=== PATIENT | female | born 1945 | race Caucasian/White ===

== ENCOUNTER 2016-12-07 19:56 | Emergency (ER) | payer MEDICARE ==
--- NOTE | 2016-12-07 20:37 | ED ---
General Adult HPI - General Chief complaint: Chest Pain Stated complaint: back & chest pressure-poss med reaction Time Seen by Provider: 12/07/16 20:26 Source: patient, RN notes reviewed, old records reviewed Mode of arrival: wheelchair Limitations: no limitations - History of Present Illness Initial comments: This is a 71-year-old female here for evaluation. Patient's today for evaluation of chest pain. Patient resisted new medication any chest pain or stomach rating her back. Patient has no history of heart disease stent. Patient no nausea vomiting or diarrhea. Patient states chest pain is sharp stabbing and radiates to her back. No significant distress of breath and no diaphoresis associated. Not worse with activity. - Related Data Home Medications Medication Instructions Recorded Confirmed Atenolol [Atenolol] 25 mg PO DAILY 06/17/15 12/07/16 Ezetimibe [Zetia] 10 mg PO DAILY 06/17/15 12/07/16 Levothyroxine Sodium [Synthroid] 150 mcg PO DAILY 06/17/15 12/07/16 Lisinopril-Hctz 20-25 mg 1 tab PO DAILY 06/17/15 12/07/16 [Zestoretic 20-25] PARoxetine HCL [Paroxetine HCl] 10 mg PO QAM 06/17/15 12/07/16 Pantoprazole Sodium 40 mg PO DAILY 06/17/15 12/07/16 Rivaroxaban [Xarelto] 20 mg PO AC-SUPPER 06/17/15 12/07/16 metFORMIN HCL [Metformin HCl ER] 500 mg PO DAILY 06/17/15 12/07/16 Allergies Allergy/AdvReac Type Severity Reaction Status Date / Time codeine Allergy Unknown Verified 12/07/16 20:43 hydrocodone Allergy Itching Verified 12/07/16 20:43 hydroxyzine HCl Allergy Unknown Verified 12/07/16 20:43 [From Vistaril] hydroxyzine pamoate Allergy Unknown Verified 12/07/16 20:43 [From Vistaril] Iodinated Contrast Media - Allergy Anaphylaxis Verified 12/07/16 20:43 Oral and [Iodinated Contrast Media - IV Dye] metoclopramide HCl Allergy Unknown Verified 12/07/16 20:43 [From Reglan] Penicillins Allergy Rash/Hives Verified 12/07/16 20:43 sulfamethoxazole Allergy Unknown Verified 12/07/16 20:43 [From Bactrim] tree nut Allergy Anaphylaxis Verified 12/07/16 20:43 trimethoprim [From Bactrim] Allergy Unknown Verified 12/07/16 20:43 eluxadoline [From Viberzi] AdvReac Intermediate Chest Pain Verified 12/07/16 20: 43 hydralazine AdvReac Hallucinati Verified 12/07/16 20:43 ons Review of Systems ROS Statement: Those systems with pertinent positive or pertinent negative responses have been documented in the HPI. ROS Other: All systems not noted in ROS Statement are negative. Past Medical History Past Medical History: Atrial Fibrillation, Coronary Artery Disease (CAD), Cancer , Diabetes Mellitus, Fibromyalgia, GERD/Reflux, Hearing Disorder / Deafness, Hyperlipidemia, Hypertension, Osteoarthritis (OA), Sleep Apnea/CPAP/BIPAP, Thyroid Disorder Additional Past Medical History / Comment(s): HAS CLL CANCER. ANEMIA History of Any Multi-Drug Resistant Organisms: None Reported Past Surgical History: Cholecystectomy, Heart Catheterization With Stent, Hysterectomy, Joint Replacement Additional Past Surgical History / Comment(s): JES HIP, JES KNEE REPLACEMENTS. CERVICAL FUSION. Past Anesthesia/Blood Transfusion Reactions: Motion Sickness Additional Past Anesthesia/Blood Transfusion Reaction / Comment(s): SISTER DEVELOPED A-FIB AFTER SURGERY. Date of Last Stent Placement:: 2012 Past Psychological History: No Psychological Hx Reported Smoking Status: Never smoker Past Alcohol Use History: None Reported Past Drug Use History: None Reported - Past Family History Mother Family Medical History: Cancer General Exam Limitations: no limitations General appearance: alert, in no apparent distress Head exam: Present: atraumatic, normocephalic, normal inspection Eye exam: Present: normal appearance, PERRL, EOMI. Absent: scleral icterus, conjunctival injection, periorbital swelling ENT exam: Present: normal exam, mucous membranes moist Neck exam: Present: normal inspection. Absent: tenderness, meningismus, lymphadenopathy Respiratory exam: Present: normal lung sounds bilaterally. Absent: respiratory distress, wheezes, rales, rhonchi, stridor Cardiovascular Exam: Present: regular rate, normal rhythm, normal heart sounds. Absent: systolic murmur, diastolic murmur, rubs, gallop, clicks GI/Abdominal exam: Present: soft, normal bowel sounds. Absent: distended, tenderness, guarding, rebound, rigid Extremities exam: Present: normal inspection, full ROM, normal capillary refill. Absent: tenderness, pedal edema, joint swelling, calf tenderness Back exam: Present: normal inspection Neurological exam: Present: alert, oriented X3, CN II-XII intact Psychiatric exam: Present: normal affect, normal mood Skin exam: Present: warm, dry, intact, normal color. Absent: rash Course Vital Signs 12/07/16 12/07/16 20:04 21:13 Temperature 98.4 F Pulse Rate 68 62 Respiratory 20 22 Rate Blood Pressure 169/73 144/58 O2 Sat by Pulse 95 97 Oximetry - Reevaluation(s) Reevaluation #1: 12/07/16 21:[address] or any further testing, states she is not willing to take a CAT scan EKG Findings - EKG Comments: EKG Findings:: EKG shows normal sinus rhythm of 60, LA 164, QRS 80, QTC 402 Medical Decision Making - Medical Decision Making 71 female here with chest pain rating to back, symptoms resolved upon arrival to ER, EKG lab work and x-ray normal, patient's symptoms occurred after taking new medication today, patient advised not to take medication and follow-up with Dr. Clark for further evaluation - Lab Data Result diagrams: 12/07/16 20:35 12/07/16 20:35 Lab Results 12/07/16 12/07/16 12/07/16 Range/Units 20:35 20:35 20:35 WBC 15.2 H (3.8-10.6) k/uL RBC 4.73 (3.80-5.40) m/uL Hgb 14.0 (11.4-16.0) gm/dL Hct 41.5 (34.0-46.0) % MCV 87.8 (80.0-100.0) fL MCH 29.7 (25.0-35.0) pg MCHC 33.8 (31.0-37.0) g/dL RDW 15.6 H (11.5-15.5) % Plt Count 304 (150-450) k/uL Neutrophils % (Manual) 53.0 % Band Neutrophils % 1.0 % Lymphocytes % (Manual) 34.0 % Monocytes % (Manual) 11.0 % Eosinophils % (Manual) 1.0 % Neutrophils # (Manual) 8.2 H (1.3-7.7) k/uL Lymphocytes # (Manual) 5.2 H (1.0-4.8) k/uL Monocytes # (Manual) 1.7 H (0-1.0) k/uL Eosinophils # (Manual) 0.2 (0-0.7) k/uL Nucleated RBCs 0 (0-0) /100 WBC Manual Slide Review Performed RBC Morphology Normal Sodium 136 L (137-145) mmol/L Potassium 4.0 (3.5-5.1) mmol/L Chloride 101 (98-107) mmol/L Carbon Dioxide 25 (22-30) mmol/L Anion Gap 10 mmol/L BUN 14 (7-17) mg/dL Creatinine 0.93 (0.52-1.04) mg/dL Est GFR (MDRD) Af Amer >60 (>60 ml/min/1.73 sqM) Est GFR (MDRD) Non-Af 59 (>60 ml/min/1.73 sqM) Glucose 151 H (74-99) mg/dL Calcium 8.9 (8.4-10.2) mg/dL Magnesium 2.2 (1.6-2.3) mg/dL Total Bilirubin 0.7 (0.2-1.3) mg/dL AST 37 H (14-36) U/L ALT 32 (9-52) U/L Alkaline Phosphatase 68 (38-126) U/L Total Creatine Kinase 62 (30-135) U/L Total Protein 6.9 (6.3-8.2) g/dL Albumin 3.9 (3.5-5.0) g/dL Lipase 46 (23-300) U/L - Radiology Data Radiology results: report reviewed (Chest x-ray 2 view negative for acute disease), image reviewed Disposition Clinical Impression: Atypical chest pain, Medication reaction Disposition: HOME SELF-CARE Condition: Good Instructions: Chest Pain (ED) Referrals: Huma Jarquin DO [Primary Care Provider] - 1-2 days
[2016-12-07 20:54] LABS: CH 30.5; CHCM 34.8; HCT 41.5 % (34.0-46.0); HDW 3.03; MCH 29.7 pg (25.0-35.0); MCHC 33.8 g/dL (31.0-37.0); MCV 87.8 fL (80.0-100.0); Mean Platelet Volume 6.9; RBC 4.73 m/uL (3.80-5.40); RDW 15.6 % (11.5-15.5); WBC 15.2 k/uL (3.8-10.6)
[2016-12-07 21:00] LABS: ALT 32 U/L (9-52); AST 37 U/L (14-36); Alkaline Phosphatase 68 U/L (38-126); Anion Gap 10 mmol/L; Blood Urea Nitrogen 14 mg/dL (7-17); Calcium 8.9 mg/dL (8.4-10.2); Carbon Dioxide 25 mmol/L (22-30); Chloride 101 mmol/L (98-107); Glucose 151 mg/dL (74-99); Magnesium 2.2 mg/dL (1.6-2.3); Non-African American GFR(MDRD) 59 (>60 ml/min/1.73 sqM); Sodium 136 mmol/L (137-145); Total Bilirubin 0.7 mg/dL (0.2-1.3); Total Protein 6.9 g/dL (6.3-8.2)
[2016-12-07 21:03] LABS: Add Differential Manual Differential
[2016-12-07 21:10] LABS: Creatine Kinase 62 U/L (30-135)
[2016-12-07 21:11] LABS: Nucleated Red Blood Cells 0 /100 WBC (0-0); Total Cells Counted 100
[2016-12-07 21:12] LABS: Manual Review Performed; Prothrombin Time 10.3 sec (9.0-12.0); RBC Morphology Normal
[2016-12-07 21:15] VITALS: BP 144/58
--- NOTE | 2016-12-07 21:20 | XR ---
EXAMINATION TYPE: XR chest 2V DATE OF EXAM: 12/07/2016 9:06 PM COMPARISON: 09/25/2013 HISTORY: Chest pressure TECHNIQUE: Frontal and lateral views of the chest are obtained. FINDINGS: There is no heart failure nor confluent pneumonic infiltrate. Heart is top normal in size. There are no hilar masses. There are chest leads. Costophrenic angles are clear. IMPRESSION: No active cardiopulmonary disease. No change.
[2016-12-07 21:22] LABS: Creatine Kinase MB 0.7 ng/mL (0.0-2.4); Troponin I <0.012 ng/mL (0.000-0.034)
[2016-12-07 21:23] LABS: Partial Thromboplastin Time 18.3 sec (22.0-30.0)
[2016-12-07 21:46] VITALS: PULSE 63; RESP 20; TEMP 97.2
== END 2016-12-07 21:44 | disposition home or self-care (01) ==
LOC: EC 19:56
DX: R07.89 Other chest pain (principal); T50.905A Adverse effect of unspecified drugs, medicaments and biological substances, initial encounter; I48.91 Unspecified atrial fibrillation; I25.10 Atherosclerotic heart disease of native coronary artery without angina pectoris; E11.9 Type 2 diabetes mellitus without complications; K21.9 Gastro-esophageal reflux disease without esophagitis; H91.3 Deaf nonspeaking, not elsewhere classified; E78.5 Hyperlipidemia, unspecified; I10 Essential (primary) hypertension; E07.9 Disorder of thyroid, unspecified; G47.30 Sleep apnea, unspecified; Z85.6 Personal history of leukemia; Z79.84 Long term (current) use of oral hypoglycemic drugs; Z79.899 Other long term (current) drug therapy; Z88.5 Allergy status to narcotic agent; Z91.041 Radiographic dye allergy status; Z88.2 Allergy status to sulfonamides; Z88.0 Allergy status to penicillin; Z88.8 Allergy status to other drugs, medicaments and biological substances; Z91.018 Allergy to other foods
CPT/HCPCS: 36415; 71020; 80053; 82550; 82553; 83690; 83735; 83880; 84484; 85025; 85379; 85610; 85730; 93005; 99285

== ENCOUNTER 2017-06-17 11:28 | Day surgery (SDC) | payer MEDICARE ==
[2017-06-15 17:30] VITALS: BMI 30.4
[~2017-06-17 11:28] MED LIST: LACTATED RINGERS 1,000 ML IV SCH
[2017-06-17 11:43] VITALS: RESP 18; TEMP 98
[2017-06-17] MEDS ORDERED: LACTATED RINGERS 1,000 ML IV ONE (11:44)
[2017-06-17] MEDS ORDERED: LIDOCAINE 1% 20 ML VIAL (10MG/ML) FOR IV START INTRADERMA ONE (11:44)
[2017-06-17] MEDS ORDERED: PROPOFOL 10 MG/ML 20 ML VIAL IV ONE (12:52)
[2017-06-17] MEDS ORDERED: LIDOCAINE 1% INJ 10MG/ML (20 ML MDV) ONE (12:52)
--- NOTE | 2017-06-17 13:26 | P.PCN ---
Date of Procedure: 06/17/17 Preoperative Diagnosis: Postoperative Diagnosis: Procedure(s) Performed: Procedure: Esophagogastroduodenoscopy and biopsy. Preoperative diagnosis: Nausea and vomiting. Postoperative diagnosis: 1. Mild antral gastritis. 2. Multiple biopsies obtained from the duodenum, antrum and esophagus. Preparation and sedation: Was provided by anesthesia. Brief clinical history: The patient is a 71-year-old female who was evaluated in the office regarding nausea and vomiting that she has been experiencing since August of last year. There is also history of GI bleeding and anemia that could have been related to Xarelto which has been discontinued since. The patient has also history of CLL diagnosed in 2012. Procedure: With the patient on her left lateral decubitus position and after informed consent and adequate sedation, I passed the Olympus-GIF 160 video upper endoscope through the cricopharyngeus down the esophagus. GE junction was around 40 cm from the incisors and there was no obvious hiatal hernia. The esophagus did not show any obvious erosions, ulcers, strictures or Pearson's esophagus. The endoscope was then passed into the stomach which was insufflated with air and inspected in detail including the retroflex view in the cardia. There was some mottling and erythema in the antrum but no ulcers or erosions. Pyloric channel, duodenal bulb, post bulbar area and descending duodenum appeared within normal limits. No ulcers or gastric outlet obstruction. Because of her symptoms, I obtained biopsies from the duodenum, antrum and esophagus then the endoscope was withdrawn. The patient tolerated the procedure well. Plan: The patient was reassured. Will await biopsy results. Further plans will be made based on her course and biopsy results. Will keep you updated on her progress. Implants: Indications for Procedure: Operative Findings: Description of Procedure:
[2017-06-17 13:56] VITALS: BP 186/78; PULSE 80
== END 2017-06-17 14:07 | disposition home or self-care (01) ==
LOC: ORWHC2ENDO 11:28
DX: K29.50 Unspecified chronic gastritis without bleeding (principal); I25.10 Atherosclerotic heart disease of native coronary artery without angina pectoris; K58.9 Irritable bowel syndrome, unspecified; I10 Essential (primary) hypertension; E78.5 Hyperlipidemia, unspecified; C91.10 Chronic lymphocytic leukemia of B-cell type not having achieved remission; E07.9 Disorder of thyroid, unspecified; M79.7 Fibromyalgia; M19.90 Unspecified osteoarthritis, unspecified site; I48.91 Unspecified atrial fibrillation; Z79.82 Long term (current) use of aspirin; Z79.899 Other long term (current) drug therapy; Z88.5 Allergy status to narcotic agent; Z88.0 Allergy status to penicillin; Z88.2 Allergy status to sulfonamides; Z88.8 Allergy status to other drugs, medicaments and biological substances
CPT/HCPCS: 88305; 88342; 43239; J2001; J2704

== ENCOUNTER → 2017-06-22 | Outpatient (CLI) | payer MEDICARE ==
--- NOTE | 2017-06-23 13:16 | PN ---
Date of service: 06/22/2017 This is a very pleasant 71 -year-old female patient who does have a history of obstructive sleep apnea. She had recently had her CPAP setting changed from 5 cm of water to 10 cm of water for her previous machine settings. She is now on a [employer] Dream Station with a dream nasal prong set up. She had been doing well with the previous setting which was 5 cm water. She comes today with complaints of bilateral ear pain since wearing the 10 cm water setting. This was just adjusted three days ago per [facility] remotely. The first two nights, she redeveloped the ear pain that she had experienced previously at 10 cm water. Technical findings of the CPAP machine revealed a RAMP of 4.0 over 30 minutes. CFLEX Of 3. She is utilizing 7.7 hours with 9.3 P90 and an AHI of 4.2. This was at 100% without any leaks. On physical exam, she is 5 feet 2 inches, weight is 169 pounds. BMI 30.9. Blood pressure 145/62. Heart rate 54. Respirations 16. Temperature 98.5. She is 96% O2 saturation on room air. Her head is normocephalic. Sclerae anicteric. There is crowding of the posterior pharynx. Her neck is short, supple. Trachea is midline. Her lungs are clear anteriorly and posteriorly. Her heart is regular, S1, and S2. No murmurs. Her abdomen is soft, nontender. Bowel sounds are present. There is no peripheral edema. No clubbing, no cyanosis. Peripheral pulses are intact. IMPRESSION: 1. Symptomatic obstructive sleep apnea utilizing CPAP with a previous pressure of 5 cm water recently increased to 10 cm water causing the patient significant bilateral ear discomfort. 2. Hypothyroidism. 3. Hypertension. 4. Fibromyalgia. 5. Coronary artery disease. 6. Diabetes. 7. Paroxysmal atrial fibrillation. PLAN: The patient was seen and evaluated by Dr. Ulloa. Her CPAP numbers were reviewed. He did go ahead and readjust the auto pressure settings to a minimum of 4 and a maximum of 8 cm water. He did remove the ramp as well. We will see her back in one weeks time to determine if these settings are more comfortable for her. She is however encouraged to call sooner with any further concerns. GRACE
== END ==
LOC: SLEEP 15:40
PROVIDERS: ATTEND Internal Medicine Critical Care Medicine
DX: G47.33 Obstructive sleep apnea (adult) (pediatric) (principal); E03.9 Hypothyroidism, unspecified; I10 Essential (primary) hypertension; M79.7 Fibromyalgia; I25.10 Atherosclerotic heart disease of native coronary artery without angina pectoris; E11.9 Type 2 diabetes mellitus without complications; I48.0 Paroxysmal atrial fibrillation

== ENCOUNTER → 2017-09-14 | Outpatient (CLI) | payer MEDICARE ==
--- NOTE | 2017-09-14 16:29 | PN ---
PROGRESS NOTE Shannan is a pleasant 72-year-old female patient coming in for a CPAP compliancy check. The patient was diagnosed having moderate to severe disease with an AHI of 17 and the patient is currently on CPAP with a minimum pressure of 4 maximum pressure of 8 and the patient's CPAP has been said to an automatic mode. She is using a dream wear nose mask. She also is utilizing a TopLog RespirSynovex auto CPAP station. Her treatment has been successful. Her sleep quality is improved and the patient is very much benefit from CPAP therapy. She is waking up alert and refreshed during the day. She seems to be averaging more than 7 hours of sleep every night. Based on the compliance data over the past 30 days. The patient has never averaging around 8.4 hours of CPAP use per night. Her mask fit is very good and the patient is not having any significant leaks. AHI while on treatment down to 3.9. Her CPAP use for more than 4 hours is 100%. The patient's P 90 pressure is at 7.5. As such, treatment has been successful, the patient is compliant and her [place] score is down to 4 and the patient has no specific complaints. She has lost around 2 pounds since her last evaluation. PHYSICAL EXAMINATION: BP is 150/80, pulse 52, respirations 16, temperature 97.7, saturation 97% on room air. Weight is 167. GENERAL APPEARANCE: Calm, comfortable. HEENT: Head is atraumatic, normocephalic. Neck is supple. No goiter or neck masses. LUNGS: Clear to auscultation. HEART: Sounds regular rhythm. Normal S1, S2. No S3, S4. No murmurs. ABDOMEN: Soft, nontender. No organomegaly. EXTREMITIES: No edema. No cyanosis or clubbing at this point. NEUROLOGIC: The patient is alert and oriented x3. There is no focal neurological deficits. PSYCHIATRIC: No anxiety or depression. IMPRESSION: 1. Symptomatic obstructive sleep apnea, improved with CPAP therapy. Baseline AHI 17. Currently on auto CPAP therapy with excellent clinical response and compliance. 2. Hypersomnia, improved. [place] score is down to 4. 3. Hypothyroidism. 4. Hypertension. 5. Fibromyalgia. 6. CAD. 7. Diabetes. 8. Paroxysmal atrial fibrillation. PLAN: 1. Continue CPAP. Automatic mode minimum pressure of 4, maximum pressure of 8. 2. Continue Dreamwear nose mask. 3. Encourage weight loss. 4. Treatment has been successful. No need for any adjustment. The patient was encouraged to continue using her CPAP. See me back in a year's time or earlier if needed. MMODL / IJN: [id number] /
== END ==
LOC: SLEEP 13:03
PROVIDERS: ATTEND Internal Medicine Critical Care Medicine
DX: G47.33 Obstructive sleep apnea (adult) (pediatric) (principal); E03.9 Hypothyroidism, unspecified; I10 Essential (primary) hypertension; M79.7 Fibromyalgia; I25.10 Atherosclerotic heart disease of native coronary artery without angina pectoris; I48.0 Paroxysmal atrial fibrillation; E11.9 Type 2 diabetes mellitus without complications
CPT/HCPCS: 99211

== ENCOUNTER → 2017-12-06 | Outpatient (CLI) | payer MEDICARE ==
--- NOTE | 2017-12-08 07:55 | MM ---
Reason for exam: screening (asymptomatic). Last mammogram was performed 1 year and 2 months ago. History: Patient is postmenopausal and has history of other cancer at age 67. Family history of breast cancer at age 42. Took estrogen for 30 years beginning at age 29. Physical Findings: A clinical breast exam by your physician is recommended on an annual basis and results should be correlated with mammographic findings. MG 3D Screening Mammo W/Cad Bilateral CC and MLO view(s) were taken. Prior study comparison: October 02, 2016, bilateral MG 3d screening mammo w/cad. August 22, 2015, bilateral MG screening mammo w CAD. The breast tissue is heterogeneously dense. This may lower the sensitivity of mammography. No suspicious abnormality. No significant changes when compared with prior studies. ASSESSMENT: Negative, BI-RAD 1 RECOMMENDATION: Routine screening mammogram of both breasts in 1 year.
== END | disposition home or self-care (01) ==
LOC: RADMAMWWP 14:37
PROVIDERS: ATTEND Family Medicine
DX: Z12.31 Encounter for screening mammogram for malignant neoplasm of breast (principal)
CPT/HCPCS: 77063; 77067

== ENCOUNTER → 2017-12-07 | Outpatient (CLI) | payer MEDICARE ==
--- NOTE | 2017-12-07 16:42 | PN ---
PROGRESS NOTE REASON FOR EVALUATION: Sleep apnea. HISTORY OF PRESENT ILLNESS: This is a 72-year-old female patient diagnosed having obstructive sleep apnea with an AHI of 17 and the patient is currently on an auto CPAP unit with a minimum pressure of 4 and a maximum pressure of 8 and today she is coming in for a compliancy check and a routine annual followup. The patient has been trying to lose weight and she has lost around 4 pounds since her last visitation. She is very compliant with her CPAP unit and she is still benefitting from the treatment. She is wearing the CPAP every night and she is requesting her CPAP supplies to be renewed. The patient has no specific complaints. She has undergone a bowel surgery for complicated diverticular disease and she has a colectomy and her surgery went fine without any major difficulties. She did not have any respiratory difficulties at the time of surgery. Her compliancy data on today's evaluation showed that the patient has been utilizing the CPAP for more than 4 hours more than 90% of the time with her average CPAP use around 9 hours per night and her AHI while on treatment is less than 5. Her P90 pressure is at 7.3. The patient is doing well and she has no specific complaints otherwise for now. REVIEW OF SYSTEMS: CONSTITUTIONAL: Negative for fever, chills or night sweats. She is losing weight. HEENT: Negative for any headaches or sinus disease or nasal congestion or rhinitis. CARDIOVASCULAR: Negative for angina or palpitations. PULMONARY: Negative for cough or sputum production. She denies wheezing. GI: Negative for nausea, vomiting, abdominal pain or GI bleed. : Negative for dysuria, urgency or frequency. MUSCULOSKELETAL: Negative for any acute arthritis, falls or injuries. SKIN: Negative for wounds, ulcerations or cellulitis. PSYCHIATRIC: Negative for anxiety or depression. BP is 134/64, pulse 68, respirations 16, temperature 97.4, saturation 98% on room air. Weight is 162. Height is 5 feet 2 inches. [place] Score is 2 and BMI is 29.6. GENERAL APPEARANCE: Calm, comfortable. HEAD: Atraumatic, normocephalic. Neck is Mallampati Class IV. There is no goiter or neck mass. LUNGS: Clear to auscultation. HEART: Sounds regular rate and rhythm. Normal S1, S2. No S3, S4. No murmurs. ABDOMEN: Soft, nontender. No organomegaly. EXTREMITIES: No edema. No cyanosis or clubbing. SKIN: Negative for any wounds or ulcerations. IMPRESSION: 1. Symptomatic obstructive sleep apnea with an apnea-hypopnea index of 17. The patient continues to receive successful CPAP therapy and her treatment is successful. 2. Hypersomnia, recovered. 3. Hypothyroidism. 4. Hypertension. 5. Fibromyalgia. 6. Coronary artery disease. 7. Paroxysmal atrial fibrillation. 8. Diabetes mellitus. PLAN: 1. Continue CPAP therapy at the same settings, automatic mode with a maximum pressure of 8, minimum pressure of 4. 2. Renew the mask and provide the patient heated tubing. 3. Encourage further weight loss. Treatment is successful. The patient will see me back in a year's time, earlier if needed. MMJAREDL / SHIVAN: [id number] /
== END | disposition home or self-care (01) ==
LOC: SLEEP 14:08
PROVIDERS: ATTEND Internal Medicine Critical Care Medicine
DX: G47.33 Obstructive sleep apnea (adult) (pediatric) (principal); E03.9 Hypothyroidism, unspecified; I10 Essential (primary) hypertension; I25.10 Atherosclerotic heart disease of native coronary artery without angina pectoris; E11.9 Type 2 diabetes mellitus without complications; M79.7 Fibromyalgia; I48.0 Paroxysmal atrial fibrillation; Z99.89 Dependence on other enabling machines and devices

== ENCOUNTER → 2018-02-24 | Outpatient (CLI) | payer MEDICARE ==
--- NOTE | 2018-02-24 14:36 | BD ---
EXAMINATION TYPE: MG DEXA axial skeleton. DATE OF EXAM: 02/24/2018 COMPARISON: NONE CLINICAL HISTORY: Postmenopausal female. Osteoporosis screening. Height: 5 FT 1 1/2 IN Weight: 165 FRAX RISK QUESTIONS: Alcohol (3 or more units per day): NO Family History (Parent hip fracture): NO Glucocorticoids (More than 3mos): NO (Ex: prednisone, prednisolone, methylprednisolone, dexamethasone, and hydrocortisone). History of Fracture in Adulthood: NO Secondary Osteoporosis: 1. Type 1 Diabetes: NO 2. Hyperthyroidism: NO 3. Menopause before 45: YES 4. Malnutrition: NO 5. Chronic liver disease: NO Rheumatoid Arthritis: NO Current Tobacco Use: NO RISK FACTORS HISTORY OF: Surgery to Spine/Hip(right/left)/Wrist (right/left): CERV,BILATERAL HIPS When: 2002,2008 Active: YES Postmenopausal woman: PART HYST AGE 28 How long: TOOK PREMARIN FOR 20 YEARS MEDICATIONS: Thyroid Medications: YES Which medication: L-THYROXINE How Lon YEARS Additional Medications: L-THYROXINE, PAXIL,TENORMIN, NORVASC, BABY ASPIRIN, PROTONIX, Additional History: EXAM MEASUREMENTS: Bone mineral densitometry was performed using the NeuroVigil System. Bone mineral density as measured about the Lumbar spine is: ----- L1-L4(G/cm2): 1.502 T Score Values are as follows: ----- L2: 2.1 ----- L3: 5.5 ----- L4: 1.4 ----- L1-L4: 2.7 BASELINE IMPRESSION: Normal (Values between +1 and -1 indicate normal bone mass). Consider repeating this study in 5 year s or sooner if there is some new clinical indication. NOTE: T-SCORE=SD OF THE YOUNG ADULT MEAN.
== END | disposition home or self-care (01) ==
LOC: RADBDWWP 12:28
PROVIDERS: ATTEND Family Medicine
DX: Z78.0 Asymptomatic menopausal state (principal)
CPT/HCPCS: 77080

== ENCOUNTER → 2018-04-26 | Outpatient (CLI) | payer MEDICARE ==
--- NOTE | 2018-04-26 19:40 | PN ---
PROGRESS NOTE This is a 72-year-old female patient with moderately severe obstructive sleep apnea with an AHI of 17. She also has issues with chronic atrial fibrillation, hypertension, hypothyroidism, fibromyalgia, coronary artery disease and diabetes mellitus. The patient recently is having again atrial fibrillation. The patient is being scheduled for a cardioversion to be done tomorrow at [facility] under the supervision of Dr. Naik. The patient is currently using an APAP unit with a minimum pressure of 5, maximum pressure of 10. CPAP use for more than 4 hours is 90% of the time and the patient is averaging around 8.5 hours of CPAP use per night. Her AHI is down to 5.1. The patient is having some periodic breathing, on the order of 14%, and her P90 pressure is at 9 cm of water. She may have some underlying periodic breathing and this is probably related to her underlying chronic atrial fibrillation. Underlying CHF cannot be completely excluded. At any rate, the patient is compliant and she is benefitting from the treatment. Clinically she is more refreshed and she reports improvement in her sleep quality while on the treatment. She wants to continue with the treatment for now. She has no other specific complaints for now. REVIEW OF SYSTEMS: Twelve-point review of systems was done. Occasional palpitations related to atrial fibrillation with rapid ventricular response. No focal neurological deficits. No symptoms of TIA. No grinding of the teeth. No gasping for air at nighttime. No sleepwalking. No anxiety or panic attacks. No palpitation. No depression. No heartburn. No sweating. No sleeptalking or sleepwalking. No nocturia. PHYSICAL EXAMINATION: Her current vital signs are as follows: Her blood pressure is , pulse is 88, irregular, respirations 16, temperature 97.1. GENERAL APPEARANCE: Calm, comfortable. No acute distress. Head is atraumatic, normocephalic. NECK: Supple. There is no JVD. No goiter or neck masses. LUNGS: Clear to auscultation bilaterally. HEART: Heart sounds are irregular. Positive S1, S2. No S3, S4. No murmurs. ABDOMEN: Soft, nontender. No organomegaly. EXTREMITIES: No edema. No cyanosis or clubbing. NEUROLOGIC: The patient is alert and oriented x3. There is no focal neurological deficit. Psychiatrically no anxiety or depression. SKIN: Negative for any wounds or ulceration. IMPRESSION: 1. Symptomatic obstructive sleep apnea with an AHI of 17. The patient is on APAP with a minimum pressure of 5, maximum pressure of 10. Compliant, yet has some residual periodic breathing on the order of 14%. 2. Hypersomnia, improved. 3. Hypothyroidism. 4. Hypertension. 5. Chronic atrial fibrillation. 6. Coronary artery disease. 7. Diabetes mellitus. PLAN: 1. Proceed with cardioversion. 2. The patient is on amiodarone for maintenance of sinus rhythm mechanism post cardioversion. 3. Continue APAP therapy. 4. Recheck compliance and periodic breathing in 6 months' time post cardioversion. Treatment is successful. AHI is still less than 5. Will not make any adjustments unless there is further increase in periodic breathing or increase in the value of AHI at a later stage. Will continue to follow. PAULAL / SHIVAN: [id number] /
== END | disposition home or self-care (01) ==
LOC: SLEEP 14:55
PROVIDERS: ATTEND Internal Medicine Critical Care Medicine
DX: G47.33 Obstructive sleep apnea (adult) (pediatric) (principal); E03.9 Hypothyroidism, unspecified; I10 Essential (primary) hypertension; I25.10 Atherosclerotic heart disease of native coronary artery without angina pectoris; E11.9 Type 2 diabetes mellitus without complications; I48.2 Chronic atrial fibrillation; Z99.89 Dependence on other enabling machines and devices

== ENCOUNTER → 2018-04-27 | Day surgery (SDC) | payer MEDICARE ==
[2018-04-21 11:53] VITALS: BMI 28.8
[~2018-04-27] MED LIST changes: +PROPOFOL 10 MG/ML 20 ML VIAL IV ONE; +SODIUM CHLORIDE 0.9% 1,000 ML IV SCH
--- NOTE | 2018-04-27 08:03 | CE ---
CARDIAC ELECTROPHYSIOLOGY REPORT CARDIOVERSION PROCEDURE NOTE: INDICATION: Atrial fibrillation. PROCEDURE: After explaining the procedure to the patient as well as after obtaining a transesophageal echocardiogram and obtaining sedated state per the Anesthesia Department, a synchronized biphasic cardioversion using 200 joules was performed with restorationism of normal sinus rhythm. There was no immediate complications. RENEE / LIZZETTE: [id number] /
--- NOTE | 2018-04-27 08:03 | ECHOT ---
TRANSESOPHAGEAL ECHOCARDIOGRAM INDICATION: Evaluation of left atrial appendage. PROCEDURE: After explaining the procedure to the patient, its risks and the complications, her blood pressure, heart rate, O2 saturation were monitored. The throat was sprayed with Cetacaine. After receiving sedated state by the anesthesia department, the probe was introduced into the esophagus without difficulty. Images were obtained. Following that, the probe was removed. There was no immediate complication. FINDINGS: Left atrial size is mildly dilated. Left atrial appendage is normal. Left ventricular size and systolic function normal. The aortic valve revealed mild fibrocalcific change with aortic cusp with preserved opening. Mild thickening of the mitral valve leaflets was noted. The tricuspid valve is normal. Pulmonic valve is normal. Descending thoracic aorta revealed mild atherosclerotic changes. No pericardial effusion was noted. Contrast bubble study revealed no evidence of shunting across the interatrial septum. Doppler pulse wave and color Doppler obtained revealed moderate mitral and tricuspid regurgitation. There was trace aortic regurgitation. There was no shunting by color Doppler study. CONCLUSION: 1. Dilated left atrium with normal appearance of the left atrial appendage. 2. Normal left ventricular size and systolic function. 3. Moderate mitral and tricuspid regurgitation with mild pulmonary hypertension and evidence of aortic sclerosis with no stenosis. 4. Trace aortic regurgitation. 5. No pericardial effusion. 6. No shunting across the interatrial septum. MMODL / IJN: [id number] /
[2018-04-27 13:14] LABS: Calcium 8.9 mg/dL (8.4-10.2)
[2018-04-27 13:15] LABS: Potassium 4.2 mmol/L (3.5-5.1)
== END ==
LOC: CATHCVL 05:50
PROVIDERS: ATTEND Internal Medicine Interventional Cardiology
DX: I48.1 Persistent atrial fibrillation (principal); I08.3 Combined rheumatic disorders of mitral, aortic and tricuspid valves; I25.10 Atherosclerotic heart disease of native coronary artery without angina pectoris; I10 Essential (primary) hypertension; E78.2 Mixed hyperlipidemia; E11.9 Type 2 diabetes mellitus without complications; Z82.49 Family history of ischemic heart disease and other diseases of the circulatory system; I34.0 Nonrheumatic mitral (valve) insufficiency; Z79.01 Long term (current) use of anticoagulants; Z79.82 Long term (current) use of aspirin; Z79.890 Hormone replacement therapy; Z79.899 Other long term (current) drug therapy; Z88.5 Allergy status to narcotic agent; Z88.0 Allergy status to penicillin; Z88.8 Allergy status to other drugs, medicaments and biological substances
CPT/HCPCS: 80048; 92960; 93312; 93320; 93325

== ENCOUNTER → 2018-05-05 | Outpatient (CLI) | payer MEDICARE ==
[2018-05-05 11:41] LABS: Albumin 4.4 g/dL (3.5-5.0); Calcium 9.4 mg/dL (8.4-10.2); Total Bilirubin 0.3 mg/dL (0.2-1.3)
== END | disposition home or self-care (01) ==
LOC: LABWHC1 10:35
PROVIDERS: ATTEND Internal Medicine Interventional Cardiology
DX: I48.1 Persistent atrial fibrillation (principal)
CPT/HCPCS: 36415; 80053; 84443

== ENCOUNTER 2018-12-13 12:10 | Day surgery (SDC) | payer MEDICARE ==
[~2018-12-13 12:10] MED LIST changes: -LACTATED RINGERS 1,000 ML IV SCH; -PROPOFOL 10 MG/ML 20 ML VIAL IV ONE
[2018-12-13 13:41] LABS: Basophils % (A) 0 %; Eosinophils # (A) 0.2 k/uL (0-0.7); Eosinophils % (A) 1 %; HCT 44.9 % (34.0-46.0); HGB 15.2 gm/dL (11.4-16.0); Lymphocytes # (A) 3.1 k/uL (1.0-4.8); Lymphocytes % (A) 21 %; MCH 30.3 pg (25.0-35.0); MCHC 33.9 g/dL (31.0-37.0); MCV 89.5 fL (80.0-100.0); Monocytes # (A) 0.3 k/uL (0-1.0); Monocytes % (A) 2 %; Neutrophils # (A) 10.9 k/uL (1.3-7.7); Neutrophils % (A) 74 %; Platelet Count 299 k/uL (150-450); RBC 5.02 m/uL (3.80-5.40); WBC 14.7 k/uL (3.8-10.6)
[2018-12-13 13:43] LABS: Calcium 9.9 mg/dL (8.4-10.2); Potassium 4.6 mmol/L (3.5-5.1)
[2018-12-13] MEDS ORDERED: SODIUM CHLORIDE 0.9% 1,000 ML IV ONE (16:06)
[2018-12-13] MEDS ORDERED: SUCCINYLCHOLINE CHLORIDE 100 MG/5 ML SYR IV ONE (16:06)
[2018-12-13] MEDS ORDERED: PROTAMINE SULFATE 10 MG/ML 5 ML VIAL IV ONE (16:06)
[2018-12-13] MEDS ORDERED: ONDANSETRON 4 MG/2 ML VIAL ONE (16:06)
[2018-12-13] MEDS ORDERED: HEPARIN SODIUM,PORCINE 10,000 UNIT/ML 1 ML VIAL ONE (16:06)
[2018-12-13] MEDS ORDERED: PROPOFOL 10 MG/ML 20 ML VIAL IV ONE (16:06)
[2018-12-13] MEDS ORDERED: fentaNYL (PF) 50 MCG/ML 2 ML AMP ONE (16:06)
[2018-12-13] MEDS ORDERED: MIDAZOLAM 2 MG/2 ML VIAL ONE (16:06)
[2018-12-13] MEDS ORDERED: ISOPROTERENOL 250 MCG/1.25 ML SYR IV ONE (16:06)
[2018-12-13] MEDS ORDERED: LIDOCAINE 1% INJ 10MG/ML (20 ML MDV) ONE (16:35)
[2018-12-13] MEDS ORDERED: LIDOCAINE 1% INJ 10MG/ML (20 ML MDV) SQ ONE (17:02)
[2018-12-13] MEDS ORDERED: HEPARIN SOD,PORK IN 0.45% NACL 25,000 UNIT in 0.45% NACL 1 250ML.BAG IV ONE (18:00)
[2018-12-13] MEDS ORDERED: IOPAMIDOL-250 100ML BTL IV ONE (18:45)
--- NOTE | 2018-12-13 19:19 | P.PCN ---
Preoperative Diagnosis: Diagnosis Atrial fibrillation, symptomatic, refractory to therapy Result Successful pulmonary vein isolation of all veins using cryo-ablation Complete entrance block in all 4 veins confirmed No evidence for phrenic nerve injury Left atrial roof line, linear ablation Esophageal deflection YES Electrical cardioversion with a synchronized shock across the chest YES Procedure details Patient was brought to the EP lab in a fasting state. Written informed consent was obtained prior to the procedure. Procedure performed under general anesthesia After initial muscle relaxant use, muscle relaxants were not given thereafter in order to assess phrenic nerve during procedure. Patient prepped and draped as per protocol Full cryo-set up with standard preparation of the cryoablation tools done. Femoral Venous access obtained on the right and left groins Venous and arterial Sheaths placed. Diagnostic catheters for the high right atrium, phrenic nerve stimulation and pacing, His bundle, RV and coronary sinus placed Intracardiac echo catheter placed. Long sheath placed in the right atrium Left and right transseptal catheterization performed under intracardiac echo guidance. Intravenous heparin with aCT above 300 Later, catheter positioning and balloon positioning in the left atrium, under intracardiac echo guidance Comprehensive diagnostic EP study with Drug infusion Coronary sinus pacing and recording Baseline measurements Atrial pacing performed from the high right atrium and the coronary sinus RV pacing Burst stimulation the right ventricle from 400 ms down to 2:30 milliseconds. One brief nonsustained VT no sustained VT Ventricular extra stimulation with single extrastimuli , no VT Transseptal catheterization performed RA pressure 20/9/15 LA pressure 30/11/21 Transseptal catheterization performed with standard sheath. The cryoablation sheath was then placed with an over the wire exchange without any acute complications. All 4 pulmonary veins were isolated in the following sequence: Left superior followed by left inferior followed by right superior followed by right inferior The cryo-ablation balloon was placed at the os of each vein 1.5 mL of IV dye was injected to confirm an occluded vein Goal during cryoablation was to achieve complete occlusion of the pulmonary vein , achieve -30C at 30 seconds and achieve -40C at 60 seconds and a time to affect of less than 60-90 seconds, . If not the balloon was repositioned to obtain this result After completion of Cryoblation with durations from 180-240 seconds, entrance block was confirmed with the Attain circular catheter in a roving fashion around the antrum of the pulmonary veins Phrenic nerve pacing was performed from the SVC, right innominate vein area and diaphragm voltage was monitored. Diaphragmatic contractions were also monitored manually for strength of contraction. Parameter goals for each cryo freeze -30 C by 30 seconds -40 degrees C by 60 seconds Minimum between minus 40-55C Thaw time greater than 10 seconds Balloon visualized by intracardiac echo The esophagus was intubated. Esophageal Temperature monitoring with a CIRCA catheter formed. Esophageal deflection for hypothermia of the esophagus below 32C Left superior pulmonary vein 4 minute Cryoblation complete isolation within 30 seconds Left inferior pulmonary vein 4 minute Cryoblation him a complete isolation Right superior pulmonary vein, during phrenic nerve pacing 4 minute Cryoblation, complete isolation Right inferior pulmonary vein, during phrenic nerve pacing 62nd Cryoblation, premature termination because of esophageal cooling Esophagus was deflected and a 4 minute Cryoblation, please isolation At the end of the procedure the Achieve catheter was once again used to check for entrance block Phrenic nerve stimulation was performed to confirm diaphragmatic stimulation the end of the procedure Cine fluoroscopy was performed at the very end of the procedure to confirm movement of both diaphragms with inspiration and expiration At the end of the procedure the patient was extubated Heparin was reversed Venous sheaths were removed and hemostasis assured Procedures performed (PVI - CRYO Ablation) Comprehensive diagnostic EP study CS pacing and recording Left and right transseptal catheterization Catheter the mapping of the tachycardia (NOT 3D mapping) Left atrial roof line, additional linear ablation, +[id number] Intracardiac echocardiography Pulmonary vein isolation with transseptal and comprehensive EPS, [id number] Electrical cardioversion with a synchronized shock across the chest 48151 Drug Infusion +[id number]
--- NOTE | 2018-12-13 19:20 | P.PRLE ---
RE: Shannan Ruiz Dear Giu Shannangus Ruiz underwent successful only vein isolation and linear ablation in the left atrial roof for management of atrial fibrillation. She is now on flecainide 100 mg twice daily and hopefully she can maintain sinus rhythm However she has a very dilated left atrium LV function is normal She will continue Xarelto lifelong Thank you for entrusting me with the care of the patient Warm regards Sincerely Antonio Nolen
[2018-12-13] MEDS ORDERED: ASPIRIN 81 MG PO SCH (21:00)
[2018-12-13 21:28] VITALS: BMI 30.1
[2018-12-13] MEDS ORDERED: ACETAMINOPHEN IV (For NPO) 1,000 MG in EMPTY BAG 1 BAG IVPB ONE (22:00)
[2018-12-13] MEDS: FLECAINIDE 50 MG TAB PO SCH (22:08)
[2018-12-13] MEDS: ACETAMINOPHEN TAB 325 MG TAB PO PRN (23:03)
[2018-12-14 05:57] LABS: T4, Free (Free Thyroxine) 1.96 ng/dL (0.78-2.19)
[2018-12-14] MEDS ORDERED: LEVOTHYROXINE 88 MCG TAB PO SCH (06:30)
[2018-12-14] MEDS ORDERED: PANTOPRAZOLE 40 MG TABLET PO SCH (07:30)
[2018-12-14] MEDS ORDERED: RIVAROXABAN 20 MG TAB PO SCH (07:30)
[2018-12-14 07:42] VITALS: RESP 18
--- NOTE | 2018-12-14 08:18 | P.DS ---
Providers Attending physician: Antonio Nolen Primary care physician: [facility] Course: Patient is doing very well. No chest discomfort dizziness lightheadedness. Mild sore throat. No dizziness no palpitations Telemetry shows sinus rhythm On examination temperature 99.2F, does not feel unwell or febrile pulse rate in the 70s and 80s normal respirations lying comfortably in bed no orthopnea Blood pressure 116/68 mmHg Normal breath sounds no rhonchi no crackles Normal heart sounds no rub or gallop soft systolic murmur Abdomen is soft nontender Groins of healed well sutures were removed no hematoma no bleeding White count 14.7 thousand but she looks very well hemoglobin is normal TSH is 0.047 and her levothyroxine dose may require adjustment Impression Persistent symptomatic atrial fibrillation. Refractory, appropriately anticoagulated for stroke prevention She underwent cryoablation of the pulmonary veins as well as left atrial roof line, linear ablation She has a very dilated left atrium and she underwent electrical cardioversion Plan Continue antiplatelet medication was xarelto Continue flecainide 100 mg twice daily Continue beta blockers Follow-up with Dr. Staples within 1-2 weeks for management of hypothyroidism and replacement therapy This may need a mild adjustment Follow-up with Dr. Naik for a groin check within a week Patient Condition at Discharge: Stable Plan - Discharge Summary Discharge Rx Participant: Yes New Discharge Prescriptions: Continue Pantoprazole Sodium 40 mg PO DAILY Atenolol 12.5 mg PO QAM PARoxetine HCL [Paroxetine HCl] 10 mg PO QAM amLODIPine [Norvasc] 5 mg PO DAILY Aspirin [Adult Low Dose Aspirin EC] 81 mg PO HS Potassium Chloride ER [K-Dur 20] 10 meq PO DAILY Cholecalciferol [Vitamin D3] 5,000 unit PO DAILY Rivaroxaban [Xarelto] 20 mg PO QAM Furosemide [Lasix] 20 mg PO QAM Levothyroxine Sodium [Synthroid] 175 mcg PO DAILY Flecainide Acetate [Tambocor] 100 mg PO Q12HR Ezetimibe [Zetia] 10 mg PO DAILY Discharge Medication List Atenolol 12.5 mg PO QAM 06/17/15 [History] PARoxetine HCL [Paroxetine HCl] 10 mg PO QAM 06/17/15 [History] Pantoprazole Sodium 40 mg PO DAILY 06/17/15 [History] Aspirin [Adult Low Dose Aspirin EC] 81 mg PO HS 08/15/17 [History] amLODIPine [Norvasc] 5 mg PO DAILY 06/15/17 [History] Cholecalciferol [Vitamin D3] 5,000 unit PO DAILY 04/21/18 [History] Furosemide [Lasix] 20 mg PO QAM 04/21/18 [History] Levothyroxine Sodium [Synthroid] 175 mcg PO DAILY 04/21/18 [History] Potassium Chloride ER [K-Dur 20] 10 meq PO DAILY 04/21/18 [History] Rivaroxaban [Xarelto] 20 mg PO QAM 04/21/18 [History] Ezetimibe [Zetia] 10 mg PO DAILY 12/09/18 [History] Flecainide Acetate [Tambocor] 100 mg PO Q12HR 12/09/18 [History] Follow up Appointment(s)/Referral(s): Florence Naik MD [STAFF PHYSICIAN] - 1 Week (Follow-up for a groin check) Activity/Diet/Wound Care/Special Instructions: Post EP study - Ablation instructions 1. Keep access sites dry for 2 days. 2. No heavy lifting or straining for 2 days. 3. Avoid bending the hips repeatedly for 2 days. 4. You may go up and down stairs slowly Call if the following is noted 1. Bleeding, increasing swelling or pain at the access sites. 2. Increasing chest discomfort, especially upon taking a deep breath. 3. Increasing shortness of breath, at rest or with exertion. 4. Undue cough / phlegm 5. Difficulty or pain while swallowing. 6. Pain or change in color in the extremities. 7. Fever, chills, rigors. 8. Increasing headache or neurologic symptoms. 9. Dizziness, fainting, palpitations Follow-up Dr. Heena fink within a week for a groin check Discharge Disposition: HOME SELF-CARE
[2018-12-14] MEDS: FLECAINIDE 50 MG TAB PO SCH (08:50)
[2018-12-14] MEDS ORDERED: POTASSIUM CHLORIDE ER 10 MEQ TAB.ER.PRT PO SCH (09:00)
[2018-12-14] MEDS ORDERED: ATENOLOL 12.5 MG TAB PO SCH (09:00)
[2018-12-14] MEDS ORDERED: EZETIMIBE 10 MG TAB PO SCH (09:00)
[2018-12-14] MEDS ORDERED: FUROSEMIDE 20 MG TAB PO SCH (09:00)
[2018-12-14] MEDS ORDERED: PARoxetine 10 MG TAB PO SCH (09:00)
[2018-12-14] MEDS ORDERED: amLODIPine 5 MG TAB PO SCH (09:00)
[2018-12-14] MEDS: ACETAMINOPHEN TAB 325 MG TAB PO PRN (11:10)
[2018-12-14 13:02] VITALS: BP 104/65; PULSE 63; TEMP 97.7
== END 2018-12-14 17:18 | disposition home or self-care (01) ==
LOC: CATHEP 12:10 → 1SOBS 19:00 → CATHEP 12-14 17:18
PROVIDERS: ATTEND Internal Medicine Clinical Cardiac Electrophysiology
DX: I48.1 Persistent atrial fibrillation (principal); I44.2 Atrioventricular block, complete; I45.81 Long QT syndrome; I47.2 Ventricular tachycardia; I49.3 Ventricular premature depolarization; I11.9 Hypertensive heart disease without heart failure; I25.10 Atherosclerotic heart disease of native coronary artery without angina pectoris; E11.9 Type 2 diabetes mellitus without complications; I34.0 Nonrheumatic mitral (valve) insufficiency; E78.2 Mixed hyperlipidemia; C95.10 Chronic leukemia of unspecified cell type not having achieved remission; G47.33 Obstructive sleep apnea (adult) (pediatric); F32.9 Major depressive disorder, single episode, unspecified; K21.9 Gastro-esophageal reflux disease without esophagitis; E03.9 Hypothyroidism, unspecified; Z99.89 Dependence on other enabling machines and devices; Z95.5 Presence of coronary angioplasty implant and graft; Z79.01 Long term (current) use of anticoagulants; Z79.82 Long term (current) use of aspirin; Z79.890 Hormone replacement therapy; Z79.899 Other long term (current) drug therapy; Z88.5 Allergy status to narcotic agent; Z88.0 Allergy status to penicillin; Z88.8 Allergy status to other drugs, medicaments and biological substances; Z91.041 Radiographic dye allergy status; Z88.2 Allergy status to sulfonamides; Z88.1 Allergy status to other antibiotic agents; Z91.018 Allergy to other foods; Z87.19 Personal history of other diseases of the digestive system; Z82.49 Family history of ischemic heart disease and other diseases of the circulatory system
CPT/HCPCS: 85347; 93623; 93662; 93609; 93656; 93657; 84439; 80048; 84443; 85025; C1769 ×4; C1894 ×3; C1730 ×2; C1759; C1893; C1733; C1766; J2250; J2720; J1644 ×2; J2405; J2001; J3010; J0330; J2704; Q9966; 92960

== ENCOUNTER → 2019-01-17 | Outpatient (CLI) | payer MEDICARE ==
--- NOTE | 2019-01-17 15:28 | PN ---
PROGRESS NOTE A 73-year-old female patient coming in for annual check regarding obstructive sleep apnea. The patient's has moderate severe JOSÉ ANTONIO with an AHI of 17 and the patient also suffers from chronic atrial fibrillation. She is also known to have hypertension, hypothyroidism, fibromyalgia, coronary artery disease and diabetes mellitus. Note that since the last dictation the patient was placed on amiodarone in regards to atrial fibrillation. She has experienced significant side effects. Mostly wounds affecting her thyroid function. Accordingly the patient was unable to tolerate the medication and the medication was discontinued. Subsequently the patient was referred to electrophysiology and the patient underwent an atrial fibrillation ablation and she was very successful. She is currently in a sinus rhythm, and she is on flecainide 100 mg twice a day. She is also on long-term anticoagulation with Xarelto and amiodarone has been discontinued completely. Meanwhile she continues to be very compliant for a Pap unit which is set at a minimum pressure of 6 admission maximum pressure of 12. She average around 8.8 hours of BiPAP use for not AHI while on treatment is down to 7.5. She is still having some occasional periodic breathing averaged a Pap 309.4 hours per night. He is very content and happy with the treatment she is waking up refreshed and alert during the day. No episodes of nocturnal palpitation no heartburn or chest pain. No episodes of any shortness of breath. No nighttime pain. She is using the AirFit small size nose pillows. REVIEW OF SYSTEMS: A 14-point review of system was done. Positive findings are mentioned in history of present illness. CONSTITUTIONAL: Negative for weight loss or weight gain. No fever, chills, or night sweats. HEAD: No trauma. NECK: Negative for any neck stiffness. Neck pain. No sore throat. No runny nose. No oral congenital nasal congestion. PULMONARY: Negative for cough, sputum production. GI: Negative for any nausea, vomiting abdominal pain, GI bleed. CARDIAC: Negative for angina or palpitations. The patient underwent ablation and she remains in sinus. NEURO: Negative for any TIA or symptoms of focal neurological or symptoms related to focal neurological deficits. Speech or confusion. No grinding of the teeth. SKIN: Negative for wounds or ulceration. CARDIAC: Negative for anxiety or depression. Sleep is negative for any sleepwalking or sleep talking. No major hypersomnia or sleepiness. [place] score is improved currently down to 5. SKIN: No wounds or ulcerations. MUSCULOSKELETAL: No falls, no excessive joint swelling. PHYSICAL EXAMINATION: BP is 91/40 7/82, pulse 68, respirations 16, temperature 16, temp 98 saturation 96% on room air. Height is 5 feet, weight is 172, and [place] score is 5 BMI 31.4. GENERAL APPEARANCE: Calm, comfortable. Head is atraumatic, normocephalic. NECK: Supple. No JVD. No goiter. No neck mass. LUNGS: Clear to auscultation. HEART: Sounds regular rate and rhythm. Normal S1, S2. No murmurs. ABDOMEN: Soft, nontender. No organomegaly. EXTREMITIES: No edema. No cyanosis or clubbing. NEUROLOGIC: Alert and oriented x3. No focal neurological deficits. PSYCHIATRIC: Negative for anxiety or depression. IMPRESSION: 1. While same other severe AHI of 17 currently on a BiPAP #5 minutes minimum of 6 maximum of 12 and the patient remained quite compliant. 2. Approximate chronic atrial fibrillation currently in sinus rhythm. Post cardiac ablation. 3. Hypersomnia, recovered [place] score is down to 5. 4. Hypothyroidism. 5. Hypertension. 6. Coronary artery disease. 7. History of diabetes mellitus. PLAN: 1. The patient will be offered abbreviated nose mask as an alternative. 2. Keep same pressure setting/. 3. Treatment successful. 4. The patient is an cardiac relative sinus and atrial fibrillation has been deflated. 5. Will see him back in a year's time, earlier if needed. MMODL / IJN: [id number] /
== END | disposition home or self-care (01) ==
LOC: SLEEP 13:22
PROVIDERS: ATTEND Internal Medicine Critical Care Medicine
DX: G47.33 Obstructive sleep apnea (adult) (pediatric) (principal); I48.2 Chronic atrial fibrillation; I10 Essential (primary) hypertension; E03.9 Hypothyroidism, unspecified; M79.7 Fibromyalgia; I25.10 Atherosclerotic heart disease of native coronary artery without angina pectoris; E11.9 Type 2 diabetes mellitus without complications; Z79.899 Other long term (current) drug therapy; Z79.01 Long term (current) use of anticoagulants; Z99.89 Dependence on other enabling machines and devices; Z98.890 Other specified postprocedural states

== ENCOUNTER 2019-05-03 09:24 | Inpatient (IN) | payer MEDICARE ==
[2019-05-08 13:49] VITALS: BMI 31.1
[2019-05-08] MEDS ORDERED: DOFETILIDE 250 MCG CAP PO ONE (18:00)
[2019-05-08 18:16] LABS: HGB 13.9 gm/dL (11.4-16.0); MCH 30.8 pg (25.0-35.0); MCHC 33.9 g/dL (31.0-37.0); MCV 90.9 fL (80.0-100.0); Mean Platelet Volume 7.1; Platelet Count 268 k/uL (150-450); RBC 4.51 m/uL (3.80-5.40); RDW 13.3 % (11.5-15.5)
[2019-05-08 18:30] LABS: Calcium 9.3 mg/dL (8.4-10.2); Magnesium 2.3 mg/dL (1.6-2.3); Potassium 3.9 mmol/L (3.5-5.1)
[2019-05-08] MEDS: ASPIRIN 81 MG PO SCH (20:36)
[2019-05-08] MEDS ORDERED: ATENOLOL 12.5 MG TAB PO SCH (21:00)
[2019-05-08] MEDS ORDERED: MAGNESIUM SULFATE-D5W PMX 1 GM in DEXTROSE/WATER 1 100ML.BAG IVPB PRN (21:32)
[2019-05-08] MEDS: ACETAMINOPHEN TAB 500 MG TAB PO SCH (21:50)
[2019-05-08 22:21] LABS: Appearance,Urine Clear (Clear); Bacteria,Urine Rare /hpf; Bilirubin,Urine Negative (Negative); Blood,Urine Trace (Negative); Color,Urine Light Yellow; Glucose,Urine (UA) Negative (Negative); Ketones,Urine Negative (Negative); Leukocyte Esterase,Urine Large (Negative); Nitrite,Urine Negative (Negative); Protein,Urine Negative (Negative); RBC,Urine 1 /hpf (0-5); Specific Gravity,Urine 1.009 (1.001-1.035); Squamous Epithelial Cell,Urine <1 /hpf (0-4); Urobilinogen,Urine <2.0 mg/dL (<2.0); WBC,Urine 8 /hpf (0-5)
[2019-05-09] MEDS ORDERED: DOFETILIDE 250 MCG CAP PO ONE ×2 (06:00→18:00)
[2019-05-09] MEDS: LEVOTHYROXINE 75 MCG TAB PO SCH (06:01)
[2019-05-09] MEDS: PANTOPRAZOLE 40 MG TABLET PO SCH (06:01)
[2019-05-09 06:41] LABS: African American GFR (CKD) >90 (>60 ml/min/1.73 sqM); Anion Gap 9 mmol/L; Blood Urea Nitrogen 21 mg/dL (7-17); Calcium 9.1 mg/dL (8.4-10.2); Carbon Dioxide 26 mmol/L (22-30); Chloride 106 mmol/L (98-107); Glucose 116 mg/dL (74-99); Magnesium 2.2 mg/dL (1.6-2.3); Potassium 3.9 mmol/L (3.5-5.1); Sodium 141 mmol/L (137-145)
[2019-05-09] MEDS: CHOLECALCIFEROL 1,000 UNIT TAB PO SCH (08:37)
[2019-05-09] MEDS: RIVAROXABAN 20 MG TAB PO SCH (08:38)
[2019-05-09] MEDS: ACETAMINOPHEN TAB 500 MG TAB PO SCH ×2 (08:39→20:19)
[2019-05-09] MEDS: FUROSEMIDE 20 MG TAB PO SCH (08:40)
[2019-05-09] MEDS: EZETIMIBE 10 MG TAB PO SCH (08:40)
[2019-05-09] MEDS: SPIRONOLACTONE 25 MG TAB PO SCH (08:40)
[2019-05-09] MEDS: amLODIPine 5 MG TAB PO SCH (08:40)
[2019-05-09] MEDS: MAGNESIUM OXIDE 400 MG TAB PO SCH (08:40)
[2019-05-09] MEDS: ATENOLOL 12.5 MG TAB PO SCH (08:40)
[2019-05-09] MEDS: PARoxetine 10 MG TAB PO SCH (08:41)
[2019-05-09] MEDS ORDERED: POTASSIUM CHLORIDE ER 20 MEQ TAB.ER PO SCH (09:00)
--- NOTE | 2019-05-09 09:42 | P.PN ---
Subjective Patient is sitting comfortably in a chair today. She has no dizziness lightheadedness palpitations or cardiac symptoms. However she has lower abdo lourdes discomfort. Yesterday a UA was sent and it shows large leukocyte esterase, WBCs and rare bacteria and trace blood Labs were reviewed this morning and include sodium 141 potassium 3.9 bicarb 26 BUN 21 creatinine 0.7 Her TSH is 4.5 On examination she is afebrile 98.1F pulse rate in the 70s afebrile blood pressure 142/71 mmHg 160/76. His mercury Breath sounds are clear no rhonchi no crackles Heart sounds are irregular Abdomen is soft there is minimal discomfort in the hypogastric area No lower extremity edema The 12-lead ECG shows colonization of atrial fibrillation on dofetilide 250 g twice daily This is after the second dose of dofetilide Her the absolute QT interval is less than 440 ms Suggest Continue amlodipine Continue Paxil 10 mg by mouth daily Continue Synthroid and low-dose Tenormin 12.5 g daily Xarelto 20 mg daily Zetia 10 mg daily Oral potassium is been stopped and spironolactone has been added Magnesium oxide has been added ID consult has been added for management of abnormal UA with elevated white count and some lower abdominal discomfort. Tikosyn interactions with be watched for Patient is okay to take penicillin and cephalosporins if needed but quinolones, Bactrim, macrolides should be avoided Objective - Vital Signs Vital signs: Vital Signs Temp 98.1 F 05/09/19 08:00 Pulse 78 05/09/19 08:00 Resp 16 05/09/19 08:00 BP 142/71 05/09/19 08:00 Pulse Ox 97 05/09/19 08:00 Intake & Output 05/08/19 05/09/19 05/09/19 18:59 06:59 18:59 Intake Total 240 Output Total 1000 Balance 240 -1000 Weight 79.8 kg 79.1 kg Intake: Oral 240 Output: Urine 1000 Other: Voiding Method Toilet # Voids 1 0 - Labs CBC & Chem 7: 05/08/19 18:04 05/09/19 05:48 Labs: Abnormal Lab Results - Last 24 Hours (Table) 05/08/19 05/08/19 05/08/19 Range/Units 18:04 18:04 22:00 WBC 13.0 H (3.8-10.6) k/uL Carbon Dioxide 31 H (22-30) mmol/L BUN 25 H (7-17) mg/dL Glucose 112 H (74-99) mg/dL Urine Blood Trace H (Negative) Ur Leukocyte Esterase Large H (Negative) Urine WBC 8 H (0-5) /hpf Urine Bacteria Rare H (None) /hpf 05/09/19 Range/Units 05:48 WBC (3.8-10.6) k/uL Carbon Dioxide (22-30) mmol/L BUN 21 H (7-17) mg/dL Glucose 116 H (74-99) mg/dL Urine Blood (Negative) Ur Leukocyte Esterase (Negative) Urine WBC (0-5) /hpf Urine Bacteria (None) /hpf
--- NOTE | 2019-05-09 11:02 | P.CONS ---
History of Present Illness - Reason for Consult Consult date: 05/09/19 Abnormal UA - History of Present Illness This is a 73-year-old female admitted under the care of Dr. Nolen for Tikosyn therapy for persistent symptomatic atrial fibrillation with previous electrocardioversions and ablation. Patient states her main complaints are shortness of breath and generalized fatigue fatigue. Yesterday, urinalysis was abnormal with trace blood, large leukoesterase, 8 of WBCs, rare bacteria along with leukocytosis and thus this consult was requested. The patient states that she did have increased frequency yesterday which she thought it was from drinking a lot of fluids. She denies any pain with urination, no abdominal pain, no flank pain. She denies having any fever or chills. No nausea, vomiting, diarrhea. Patient gives history of having CLL and her white count normally runs 10-14 and she follows with Dr. Paredes quarterly. Her white count is currently 13. Patient also has history of fibromyalgia and osteoarthritis generalized ankle feed and hands. Review of Systems All systems: negative Constitutional: Reports fatigue, Denies chills, Denies fever, Denies lethargy, Denies poor appetite, Denies sweats, Denies weakness Eyes: denies blurred vision, denies pain Ears, nose, mouth and throat: Denies dental pain, Denies dysphagia, Denies headache, Denies mouth pain, Denies nasal congestion, Denies nasal discharge, Denies sore throat, Denies vertigo Cardiovascular: Reports shortness of breath, Denies chest pain, Denies dyspnea on exertion, Denies leg edema, Denies lightheadedness Respiratory: Denies cough, Denies cough with sputum, Denies excessive sputum, Denies hemoptysis, Denies wheezing Gastrointestinal: Denies abdominal pain, Denies diarrhea, Denies loss of appetite, Denies nausea, Denies vomiting Genitourinary: Reports urinary frequency, Denies dysuria, Denies hematuria, Denies urgency Musculoskeletal: Denies frequent falls, Denies gait dysfunction, Denies muscle weakness, Denies myalgias Integumentary: Denies pruritus, Denies rash, Denies wounds Neurological: Denies aphasia, Denies change in mentation, Denies change in smell/taste, Denies change in speech, Denies numbness, Denies seizures, Denies weakness Psychiatric: Denies anxiety, Denies depression Endocrine: Denies fatigue, Denies weight change Past Medical History Past Medical History: Atrial Fibrillation, Coronary Artery Disease (CAD), Cancer, Fibromyalgia, GERD/Reflux, Hyperlipidemia, Hypertension, Osteoarthritis (OA), Sleep Apnea/CPAP/BIPAP, Thyroid Disorder Additional Past Medical History / Comment(s): Hx. chronic lymphocytic leukemia, ANEMIA, brucellosis, hiatal hernia, hx IBS, hx diverticulitis, uses CPAP, see Dr Nolen H & P History of Any Multi-Drug Resistant Organisms: None Reported Past Surgical History: Appendectomy, Back Surgery, Bowel Resection, Cholecystectomy, Heart Catheterization With Stent, Hysterectomy, Joint Replacement Additional Past Surgical History / Comment(s): JES HIP replacement, JES KNEE REPLACEMENTS. CERVICAL FUSION. hx of epidurals for back pain Past Anesthesia/Blood Transfusion Reactions: Motion Sickness Additional Past Anesthesia/Blood Transfusion Reaction / Comm: . Date of Last Stent Placement:: 2012 Past Psychological History: No Psychological Hx Reported Smoking Status: Never smoker Past Alcohol Use History: None Reported Additional Past Alcohol Use History / Comment(s): Patient is a lifelong nonsmoker. No illicit drug use, no alcohol abuse. Patient lives at home with her . There is a cat in the home. No recent travel. Past Drug Use History: None Reported - Past Family History Brother(s) Family Medical History: Cancer Mother Family Medical History: Cancer Medications and Allergies Home Medications Medication Instructions Recorded Confirmed Type Atenolol 12.5 mg PO BID 06/17/15 05/08/19 History PARoxetine HCL [Paroxetine HCl] 10 mg PO QAM 06/17/15 05/08/19 History Pantoprazole Sodium 40 mg PO DAILY 06/17/15 05/08/19 History Aspirin [Adult Low Dose Aspirin EC] 81 mg PO HS 06/15/17 05/08/19 History amLODIPine [Norvasc] 5 mg PO DAILY 06/15/17 05/08/19 History Cholecalciferol [Vitamin D3 (25 5,000 unit PO DAILY 04/21/18 05/08/19 History Mcg = 1000 Iu)] Furosemide [Lasix] 20 mg PO QAM 04/21/18 05/08/19 History Potassium Chloride ER [K-Dur 20] 20 meq PO DAILY 04/21/18 05/08/19 History Rivaroxaban [Xarelto] 20 mg PO QAM 04/21/18 05/08/19 History Ezetimibe [Zetia] 10 mg PO DAILY 12/09/18 05/08/19 History Levothyroxine Sodium [Synthroid] 150 mcg PO DAILY 05/08/19 05/08/19 History Allergies Allergy/AdvReac Type Severity Reaction Status Date / Time codeine Allergy "couldn't Verified 05/08/19 14:35 breathe" hydroxyzine HCl Allergy Unknown Verified 05/08/19 14:35 [From Vistaril] hydroxyzine pamoate Allergy Hallucinati Verified 05/08/19 14:35 [From Vistaril] ons Iodinated Contrast- Oral and Allergy Anaphylaxis Verified 05/08/19 14:35 IV Dye [Iodinated Contrast Media - IV Dye] metoclopramide HCl Allergy "couldn't Verified 05/08/19 14:35 [From Reglan] breathe" Penicillins Allergy Rash/Hives Verified 05/08/19 14:35 ranitidine [From Zantac] Allergy Rash/Hives Verified 05/08/19 14:35 sulfamethoxazole Allergy Rash/Hives Verified 05/08/19 14:35 [From Bactrim] tree nut Allergy Anaphylaxis Verified 05/08/19 14:35 trimethoprim [From Bactrim] Allergy Unknown Verified 05/08/19 14:35 eluxadoline [From Viberzi] AdvReac Intermediate Chest Pain Verified 05/08/19 14:35 hydralazine AdvReac Hallucinati Verified 05/08/19 14:35 ons Physical Exam Vitals: Vital Signs Temp Pulse Resp BP Pulse Ox 05/09/19 08:00 98.1 F 79 16 142/71 97 05/09/19 04:00 73 16 160/76 96 05/09/19 00:00 66 16 156/87 98 05/08/19 20:00 98.0 F 78 16 140/90 97 05/08/19 16:00 98.5 F 79 16 133/78 97 Intake and Output 05/08/19 05/09/19 05/09/19 22:59 06:59 14:59 Intake Total 240 240 Output Total 700 300 900 Balance -460 -300 -363 Intake: Oral 240 240 Output: Urine 700 300 900 Other: Voiding Method Toilet Toilet # Voids 0 Weight 79.1 kg Gen: This is a 73-year-old female. Patient is ambulating in her room and appears to be comfortable and in no acute distress. HEENT: Head is atraumatic, normocephalic. Pupils equal, round. Sclerae is anicteric. NECK: Supple. No JVD. No lymphadenopathy. No thyromegaly. LUNGS: Clear to auscultation. No wheezes or rhonchi. No intercostal retractions. HEART: Irregular rate and rhythm. No murmur. ABDOMEN: Soft. Bowel sounds are present. No masses. No tenderness. No CVA tenderness. EXTREMITIES: No pedal edema. No calf tenderness. Dorsalis pedis +2 bilaterally. NEUROLOGICAL: Patient is awake, alert and oriented x3. Cranial nerves 2 through 12 are grossly intact. Results Results: Laboratory Results WBC 13.0 k/uL (3.8-10.6) H 05/08/19 18:04 RBC 4.51 m/uL (3.80-5.40) 05/08/19 18:04 Hgb 13.9 gm/dL (11.4-16.0) 05/08/19 18:04 Hct 41.0 % (34.0-46.0) 05/08/19 18:04 MCV 90.9 fL (80.0-100.0) 05/08/19 18:04 MCH 30.8 pg (25.0-35.0) 05/08/19 18:04 MCHC 33.9 g/dL (31.0-37.0) 05/08/19 18:04 RDW 13.3 % (11.5-15.5) 05/08/19 18:04 Plt Count 268 k/uL (150-450) 05/08/19 18:04 Sodium 141 mmol/L (137-145) 05/09/19 05:48 Potassium 3.9 mmol/L (3.5-5.1) 05/09/19 05:48 Chloride 106 mmol/L (98-107) 05/09/19 05:48 Carbon Dioxide 26 mmol/L (22-30) 05/09/19 05:48 Anion Gap 9 mmol/L 05/09/19 05:48 BUN 21 mg/dL (7-17) H 05/09/19 05:48 Creatinine 0.70 mg/dL (0.52-1.04) 05/09/19 05:48 Est GFR (CKD-EPI)AfAm >90 (>60 ml/min/1.73 sqM) 05/09/19 05:48 Est GFR (CKD-EPI)NonAf 85 (>60 ml/min/1.73 sqM) 05/09/19 05:48 Glucose 116 mg/dL (74-99) H 05/09/19 05:48 Calcium 9.1 mg/dL (8.4-10.2) 05/09/19 05:48 Magnesium 2.2 mg/dL (1.6-2.3) 05/09/19 05:48 TSH 4.520 mIU/L (0.465-4.680) 05/08/19 18:04 Urine Color Light Yellow 05/08/19 22:00 Urine Appearance Clear (Clear) 05/08/19 22:00 Urine pH 6.0 (5.0-8.0) 05/08/19 22:00 Ur Specific [place] 1.009 (1.001-1.035) 05/08/19 22:00 Urine Protein Negative (Negative) 05/08/19 22:00 Urine Glucose (UA) Negative (Negative) 05/08/19 22:00 Urine Ketones Negative (Negative) 05/08/19 22:00 Urine Blood Trace (Negative) H 05/08/19 22:00 Urine Nitrite Negative (Negative) 05/08/19 22:00 Urine Bilirubin Negative (Negative) 05/08/19 22:00 Urine Urobilinogen <2.0 mg/dL (<2.0) 05/08/19 22:00 Ur Leukocyte Esterase Large (Negative) H 05/08/19 22:00 Urine RBC 1 /hpf (0-5) 05/08/19 22:00 Urine WBC 8 /hpf (0-5) H 05/08/19 22:00 Ur Squamous Epith Cells <1 /hpf (0-4) 05/08/19 22:00 Urine Bacteria Rare /hpf (None) H 05/08/19 22:00 CBC & Chem 7: 05/08/19 18:04 05/09/19 05:48 Labs: Abnormal Lab Results - Last 24 Hours (Table) 05/08/19 05/08/19 05/08/19 Range/Units 18:04 18:04 22:00 WBC 13.0 H (3.8-10.6) k/uL Carbon Dioxide 31 H (22-30) mmol/L BUN 25 H (7-17) mg/dL Glucose 112 H (74-99) mg/dL Urine Blood Trace H (Negative) Ur Leukocyte Esterase Large H (Negative) Urine WBC 8 H (0-5) /hpf Urine Bacteria Rare H (None) /hpf 05/09/19 Range/Units 05:48 WBC (3.8-10.6) k/uL Carbon Dioxide (22-30) mmol/L BUN 21 H (7-17) mg/dL Glucose 116 H (74-99) mg/dL Urine Blood (Negative) Ur Leukocyte Esterase (Negative) Urine WBC (0-5) /hpf Urine Bacteria (None) /hpf Assessment and Plan Plan: This is a 73-year-old female admitted to the hospital under the care of Dr. Nolen for Tikosyn dosing. There is concern for abnormal urinalysis completed yesterday. Patient has a slightly elevated white count most likely secondary to CLL. We will obtain renal ultrasound as there was abnormality found on a CAT scan done 2 years ago. No antibiotics at this time. Further recommendations as patient progresses. The above dictated assessment and findings were discussed with Dr. Rodgers. The impression and plan of care have been directed as dictated. Shannan Santiago nurse practitioner acting as scribe for Dr. Rodgers.
--- NOTE | 2019-05-09 15:07 | US ---
EXAMINATION TYPE: US kidneys/renal and bladder DATE OF EXAM: 05/09/2019 COMPARISON: CT 09/03/17, US 08/01/15 CLINICAL HISTORY: abnormal kidney. EXAM MEASUREMENTS: Right Kidney: 10.7 x 4.7 x 3.8 cm Left Kidney: 10.2 x 5.0 x 4.8 cm Post Void Residual Volume: Not calculated for this inpatient. mL Right Kidney: Hypoechoic area upper pole = 2.1 x 1.9 x 2.0 cm. This does not demonstrate clear assistive technology specialist ior acoustic enhancement. Left Kidney: No hydronephrosis or masses seen Bladder: wnl Bilateral Jets seen: Yes There is no evidence for hydronephrosis at this point in time. No nephrolithiasis is seen. The urin zainab bladder is anechoic. Bilateral ureteral jets are seen. IMPRESSION: New hypoechoic right renal mass in comparison to the prior exams of 2014 and 2016. This does not appe ar as a simple cyst and therefore three-phase CT abdomen is recommended to evaluate for solid renal m ass versus complex cyst
[2019-05-09] MEDS: ASPIRIN 81 MG PO SCH (20:19)
--- NOTE | 2019-05-09 23:44 | P.CON ---
Consult Note - . Consult date: 05/09/19 Assessment/Plan:: This is a 73-year-old female admitted under the care of Dr. Nolen for Tikosyn therapy for persistent symptomatic atrial fibrillation with previous electrocardioversions and ablation. Patient states her main complaints are s hortness of breath and generalized fatigue fatigue. Yesterday, urinalysis was abnormal with trace blood, large leukoesterase, 8 of WBCs, rare bacteria along with leukocytosis and thus this consult was requested. The patient states that she did have increased frequency yesterday which she thought it was from drinking a lot of fluids. She denies any pain with urination, no abdominal pain, no flank pain. She denies having any fever or chills. No nausea, vomiting, diarrhea. Patient gives history of having CLL and her white count normally runs 10-14 and she follows with Dr. Paredes quarterly. Her white count is currently 13. Patient also has history of fibromyalgia and osteoarthritis generalized ankle feed and hands.Please see the consult note as dictated by nurse practitioner Mrs. Shannan Santiago. This pleasant 73 year woman presents to Hospital for treatment of her refractory atrial fibrillation which is highly symptomatic with severe fatigue and malaise and progressive shortness of breath. She is being initiated Tikosyn therapy. She has some polyuria which she relates is not new but does not have dysuria, flank pain or fevers. She hasn't had chills or rigors. She does not feel like she usually does when she's had a urinary tract infection in the past. This time she is evidence of asymptomatic bacteriuria without significant pyuria and her leukocytosis appears recommended to her CLL. At this time she does not have underlying infection and does not require antibiotic therapy and can be monitored closely because of her risks. Thank you for the consult and I agree with the evaluation assessment and plan as dictated by nurse practitioner Mrs. Shannan Santiago.
[2019-05-10] MEDS: PANTOPRAZOLE 40 MG TABLET PO SCH (05:58)
[2019-05-10] MEDS: LEVOTHYROXINE 75 MCG TAB PO SCH (05:59)
[2019-05-10] MEDS ORDERED: DOFETILIDE 250 MCG CAP PO ONE ×2 (06:00→18:00)
[2019-05-10 06:55] LABS: Calcium 9.3 mg/dL (8.4-10.2); Magnesium 2.3 mg/dL (1.6-2.3); Potassium 3.9 mmol/L (3.5-5.1)
--- NOTE | 2019-05-10 07:43 | P.PN ---
Subjective This is Dr. Nolen dictating a progress note on this patient The patient was interviewed and examined by me IMPRESSION / ASSESSMENT: Symptomatic persistent atrial fibrillation with tiredness fatigue and lack of energy Dofetilide insulation in the hospital, Organization of atrial fibrillation followed by chemical conversion on dofetilide, 250 g PLAN: HPI ROS: No fever chills or rigors, no cough, phlegm or expectoration, no nausea, vomiting or diarrhea, no hematuria, dysuria, no musculoskeletal complaints, no strokes or seizures, no skin lesions. EXAMINATION: Afebrile 96.5F, blood pressure 137/66. His mercury and 146/60 mmHg Heart rate in the 60s and regular Normal respirations REVIEW OF LABS, ECG & MEDICAL DATA Sodium 140, potassium 3.9 BUN 24 creatinine 0.79 magnesium 2.3 Objective - Vital Signs Vital signs: Vital Signs Temp 96.5 F L 05/10/19 04:00 Pulse 68 05/10/19 04:00 Resp 18 05/10/19 04:00 BP 146/62 05/10/19 04:00 Pulse Ox 93 L 05/10/19 04:00 Intake & Output 05/09/19 05/10/19 05/10/19 18:59 06:59 18:59 Intake Total 1200 300 Output Total 900 Balance 300 300 Weight 79 kg Intake: Oral 1200 300 Output: Urine 900 Other: Voiding Method Toilet Toilet # Voids 0 2 1 - Labs CBC & Chem 7: 05/08/19 18:04 05/10/19 06:18 Labs: Abnormal Lab Results - Last 24 Hours (Table) 05/10/19 Range/Units 06:18 BUN 24 H (7-17) mg/dL Glucose 109 H (74-99) mg/dL
[2019-05-10] MEDS: ACETAMINOPHEN TAB 500 MG TAB PO SCH ×2 (08:28→20:46)
[2019-05-10] MEDS: MAGNESIUM OXIDE 400 MG TAB PO SCH (08:28)
[2019-05-10] MEDS: CHOLECALCIFEROL 1,000 UNIT TAB PO SCH (08:28)
[2019-05-10] MEDS: PARoxetine 10 MG TAB PO SCH (08:29)
[2019-05-10] MEDS: ATENOLOL 12.5 MG TAB PO SCH (08:29)
[2019-05-10] MEDS: SPIRONOLACTONE 25 MG TAB PO SCH (08:29)
[2019-05-10] MEDS: EZETIMIBE 10 MG TAB PO SCH (08:29)
[2019-05-10] MEDS: FUROSEMIDE 20 MG TAB PO SCH (08:29)
[2019-05-10] MEDS: RIVAROXABAN 20 MG TAB PO SCH (08:29)
[2019-05-10] MEDS: amLODIPine 5 MG TAB PO SCH (08:29)
--- NOTE | 2019-05-10 11:31 | P.PN ---
Subjective Impression: persistent atrial fibrillation, chemical conversion on dofetilide, 250 g PLAN: Continue current medications including dofetilide 250 g twice a day and anticoagulation with Xarelto Continue to monitor EKGs for QT prolongation, nonsustained ventricular arrhythmias, and PVCs Continue to monitor BMP and magnesium levels daily Consider decreasing Lasix the future HPI Patient is a 73-year-old female with persistent symptomatic atrial fibrillation who is admitted for dofetilide loading. She was started on dofetilide 250 g twice a day and converted to sinus rhythm yesterday after 2 doses of dofetilide. Patient states she feels well after converting to sinus rhythm, her shortness of breath has improved and she is able to walk the hallways comfortably. She also notes her lower extremity edema has completely resolved after starting spironolactone. Patient given dofetilide information sheet to read. ROS: No fever chills or rigors, no cough, phlegm or expectoration, no nausea, vomiting or diarrhea, no hematuria, dysuria, no musculoskeletal complaints, no strokes or seizures, no skin lesions. EXAMINATION: Afebrile 96.5F, blood pressure 137/66. His mercury and 146/60 mmHg Heart rate in the 60s and regular Normal respirations No lower extremity edema REVIEW OF LABS, ECG & MEDICAL DATA Sodium 140, potassium 3.9 BUN 24 creatinine 0.79 magnesium 2.3 EKG showed sinus rhythm, QT absolute around 440 Objective - Vital Signs Vital signs: Vital Signs Temp 97.7 F 05/10/19 11:18 Pulse 52 L 05/10/19 11:18 Resp 18 05/10/19 11:18 BP 145/75 05/10/19 11:18 Pulse Ox 96 05/10/19 11:18 Intake & Output 05/09/19 05/10/19 05/10/19 18:59 06:59 18:59 Intake Total 1200 300 240 Output Total 900 Balance 300 300 240 Weight 79 kg Intake: Oral 1200 300 240 Output: Urine 900 Other: Voiding Method Toilet Toilet Toilet # Voids 0 2 1 - Labs CBC & Chem 7: 05/08/19 18:04 05/10/19 06:18 Labs: Abnormal Lab Results - Last 24 Hours (Table) 05/10/19 Range/Units 06:18 BUN 24 H (7-17) mg/dL Glucose 109 H (74-99) mg/dL
[2019-05-10] MEDS: ASPIRIN 81 MG PO SCH (20:47)
[2019-05-11] MEDS ORDERED: DOFETILIDE 250 MCG CAP PO ONE ×3 (06:00→18:00)
[2019-05-11] MEDS: LEVOTHYROXINE 75 MCG TAB PO SCH (06:31)
[2019-05-11] MEDS: PANTOPRAZOLE 40 MG TABLET PO SCH (06:31)
[2019-05-11 07:18] LABS: Calcium 9.1 mg/dL (8.4-10.2); Magnesium 2.4 mg/dL (1.6-2.3); Potassium 3.9 mmol/L (3.5-5.1)
[2019-05-11] MEDS: ACETAMINOPHEN TAB 500 MG TAB PO SCH ×2 (09:56→20:13)
[2019-05-11] MEDS: SPIRONOLACTONE 25 MG TAB PO SCH (09:56)
[2019-05-11] MEDS: FUROSEMIDE 20 MG TAB PO SCH (09:57)
[2019-05-11] MEDS: RIVAROXABAN 20 MG TAB PO SCH (09:57)
[2019-05-11] MEDS: MAGNESIUM OXIDE 400 MG TAB PO SCH (09:57)
[2019-05-11] MEDS: CHOLECALCIFEROL 1,000 UNIT TAB PO SCH (09:57)
[2019-05-11] MEDS: amLODIPine 5 MG TAB PO SCH (09:57)
[2019-05-11] MEDS: PARoxetine 10 MG TAB PO SCH (12:12)
[2019-05-11] MEDS: EZETIMIBE 10 MG TAB PO SCH (12:12)
[2019-05-11] MEDS: ATENOLOL 12.5 MG TAB PO SCH (12:12)
--- NOTE | 2019-05-11 16:24 | P.PN ---
Subjective This is Saima Henderson PA-C dictating a progress note on this patient The patient was interviewed and examined by me IMPRESSION / ASSESSMENT: Persistent symptomatic atrial fibrillation, successful conversion to sinus rhythm on dofetilide PLAN: Increase spironolactone to 50 mg daily Discontinue Lasix Continue to monitor EKGs and daily BMPs and Magnesium Continue to monitor telemetry for signs of arrhythmias, prolonged QT, or PVCs Plan to discharge tomorrow HPI/interval history Patient is a 73-year-old female with persistent symptomatic atrial fibrillation who is admitted for dofetilide loading. She successfully converted to sinus rhythm and is feeling well. Denies any palpitations, chest pain, shortness of breath, lower extremity edema. Her only problem is some loose stools which she attributes to eating a lot of fruit. EXAMINATION Temperature 97.5F, pulse 57, respirations 18, blood pressure 113/68, oxygen saturation 97% on room air She is resting comfortably in her chair, no acute distress Lungs clear to auscultation bilaterally Heart is regular, normal S1 and S2, no murmurs appreciated No lower extremity edema REVIEW OF LABS, ECG Sodium 141, potassium 3.9, BUN 25, creatinine 0.80, magnesium 2.4 EKG shows normal sinus rhythm, absolute QT less than 440 ms No arrhythmias noted on telemetry Objective - Vital Signs Vital signs: Vital Signs Temp 97.5 F L 05/11/19 12:10 Pulse 57 L 05/11/19 12:10 Resp 18 05/11/19 12:10 BP 141/74 05/11/19 12:10 Pulse Ox 98 05/11/19 12:10 Intake & Output 05/10/19 05/11/19 05/11/19 18:59 06:59 18:59 Intake Total 1000 1080 Output Total 1200 700 800 Balance -200 -700 280 Weight 78.2 kg Intake: Oral 1000 1080 Output: Urine 1200 700 800 Other: Voiding Method Toilet Toilet # Voids 1 1 2 - Labs CBC & Chem 7: 05/08/19 18:04 05/11/19 06:22 Labs: Abnormal Lab Results - Last 24 Hours (Table) 05/11/19 Range/Units 06:22 BUN 25 H (7-17) mg/dL Glucose 111 H (74-99) mg/dL Magnesium 2.4 H (1.6-2.3) mg/dL
[2019-05-11] MEDS: ASPIRIN 81 MG PO SCH (20:13)
[2019-05-12] MEDS ORDERED: DOFETILIDE 250 MCG CAP PO ONE (06:00)
[2019-05-12] MEDS: LEVOTHYROXINE 75 MCG TAB PO SCH (06:38)
[2019-05-12] MEDS: PANTOPRAZOLE 40 MG TABLET PO SCH (06:38)
[2019-05-12 06:45] LABS: Calcium 9.4 mg/dL (8.4-10.2); Magnesium 2.6 mg/dL (1.6-2.3); Potassium 4.5 mmol/L (3.5-5.1)
[2019-05-12] MEDS ORDERED: SPIRONOLACTONE 25 MG TAB PO SCH (09:00)
[2019-05-12] MEDS: MAGNESIUM OXIDE 400 MG TAB PO SCH (10:26)
[2019-05-12] MEDS: ATENOLOL 12.5 MG TAB PO SCH (10:26)
[2019-05-12] MEDS: CHOLECALCIFEROL 1,000 UNIT TAB PO SCH (10:26)
[2019-05-12] MEDS: RIVAROXABAN 20 MG TAB PO SCH (10:27)
[2019-05-12] MEDS: amLODIPine 5 MG TAB PO SCH (10:27)
[2019-05-12] MEDS: ACETAMINOPHEN TAB 500 MG TAB PO SCH (10:27)
[2019-05-12] MEDS: EZETIMIBE 10 MG TAB PO SCH (10:27)
[2019-05-12] MEDS: PARoxetine 10 MG TAB PO SCH (10:27)
[2019-05-12 10:38] VITALS: RESP 18; TEMP 97.9
--- NOTE | 2019-05-12 11:49 | P.DS ---
Providers Date of admission: 05/08/19 13:27 Attending physician: Antonio Nolen Consults: 05/09/19 14:11 Consult Physician Routine Consulting Provider: Alan Rodgers Consult Reason/Comments: abnormal UA Do you want consulting provider notified?: Yes Primary care physician: Stated None Hospital Course: Patient is doing very well from a cardiac standpoint. She has noticed a tremendous improvement in her energy level and her exercise capacity and ability to walk longer distances while in sinus rhythm. She states that when she came into the hospital she was not able to walk and was dragging her feet but now she is walking around the hallways all over very comfortably She denies any chest discomfort dizziness lightheadedness or palpitations. Her loose stools have resolved Telemetry no arrhythmias no atrial fibrillation no PVCs no nonsustained atrial tachycardia Twelve-lead ECG today was carefully reviewed and shows sinus rhythm normal NM narrow QRS and the absolute QT interval ranges from 440 in the leads 1 and aVL to 480 in leads 3 and aVF and V5 and V6 On examination she is afebrile and 7.9F Pulse rate in the 60s Blood pressure 171 mmHg Normal heart sounds normal S1 normal S2 no murmurs or gallops or rub Breath sounds are clear no rhonchi no crackles no adventitious sounds Abdomen soft nontender No JVD No lower extremity edema Impression Symptomatic atrial fibrillation despite adequate rate control with tiredness fatigued shortness of breath and exercise intolerance Coronary artery disease status post coronary stenting Preserved systolic function and a normal stress test in March 2019 Nonsustained ventricular tachycardia noted in the past along with PVCs Admitted for inpatient initiation of dofetilide which was started at 250 g twice daily Chemical conversion with dofetilide second dose Remains on 250 g twice daily with an absolute QT interval of 13 440-480 without any arrhythmias Plan Continue dofetilide 250 mg twice daily back oxide 400 mg by mouth daily line spironolactone 50 mg by mouth daily instead of Lasix Lasix has been stopped Oral potassium is been stopped All other cardiac medications are to continue unchanged, continue anticoagulation with xarelto Discharge home today and follow-up Dr. Naik/aleks in 1 week. A 12-lead EKG and a Holter monitor will be ordered Today I will see her again in about 2-3 months Patient Condition at Discharge: Stable Plan - Discharge Summary Discharge Rx Participant: No New Discharge Prescriptions: New Dofetilide 250 mcg PO Q12HR #90 capsule Magnesium Oxide [Mag-Ox] 400 mg PO DAILY #90 tablet Spironolactone 50 mg PO QID #90 tablet Discontinued Potassium Chloride ER [K-Dur 20] 20 meq PO DAILY Furosemide [Lasix] 20 mg PO QAM No Action Pantoprazole Sodium 40 mg PO DAILY Atenolol 12.5 mg PO BID PARoxetine HCL [Paroxetine HCl] 10 mg PO QAM amLODIPine [Norvasc] 5 mg PO DAILY Aspirin [Adult Low Dose Aspirin EC] 81 mg PO HS Cholecalciferol [Vitamin D3 (25 Mcg = 1000 Iu)] 5,000 unit PO DAILY Rivaroxaban [Xarelto] 20 mg PO QAM Ezetimibe [Zetia] 10 mg PO DAILY Levothyroxine Sodium [Synthroid] 150 mcg PO DAILY Discharge Medication List Atenolol 12.5 mg PO BID 06/17/15 [History] PARoxetine HCL [Paroxetine HCl] 10 mg PO QAM 06/17/15 [History] Pantoprazole Sodium 40 mg PO DAILY 06/17/15 [History] Aspirin [Adult Low Dose Aspirin EC] 81 mg PO HS 06/15/17 [History] amLODIPine [Norvasc] 5 mg PO DAILY 06/15/17 [History] Cholecalciferol [Vitamin D3 (25 Mcg = 1000 Iu)] 5,000 unit PO DAILY 04/21/18 [History] Rivaroxaban [Xarelto] 20 mg PO QAM 04/21/18 [History] Ezetimibe [Zetia] 10 mg PO DAILY 12/09/18 [History] Levothyroxine Sodium [Synthroid] 150 mcg PO DAILY 05/08/19 [History] Dofetilide 250 mcg PO Q12HR #90 capsule 05/12/19 [Rx] Magnesium Oxide [Mag-Ox] 400 mg PO DAILY #90 tablet 05/12/19 [Rx] Spironolactone 50 mg PO QID #90 tablet 05/12/19 [Rx] Follow up Appointment(s)/Referral(s): Florence Naik MD [STAFF PHYSICIAN] - 1 Week (follow up with Dr. Naik /Gricelda in one week Follow with Dr. Nolen 2-3 months) Activity/Diet/Wound Care/Special Instructions: [facility] to order tikosyn 250 mcg to have in stock for discharge. Pat ient agreeable to 3 month supply. Plan for discharge on 05/12/19. Patient received tikosyn teaching form. signed script for 3 months of Tikosyn sent to [facility]. pts cost is $42 for 3 mo supply
--- NOTE | 2019-05-12 13:07 | LTR ---
DATE OF SERVICE: 05/12/2019 RE: Shannan Ruiz Dear Dr. Jarquin: Shannan Ruiz was admitted for inpatient initiation of dofetilide (Tikosyn) for symptomatic atrial fibrillation with exercise intolerance despite adequate rate control. She was started on dofetilide 250 mcg twice daily and after the second dose she chemically converted to sinus rhythm. Thereafter, she remained in sinus rhythm and her maximum QT interval was 480 milliseconds. I have made the following changes in her medications: Magnesium oxide has been added 400 mg p.o. daily. Spironolactone 50 mg p.o. daily has been added. Dofetilide 250 mcg twice daily has been added. Lasix has been discontinued. Oral potassium has been discontinued. All other medications remain unchanged. Dofetilide are QT prolonging drugs with some very specific interactions. Shannan will bring you the sheet that I have handed to her for your records. If any have any questions, please do not hesitate to give me a call. Sincerely, MD RENEE Long / LIZZETTE: [phone] /
[2019-05-12 13:46] VITALS: BP 132/74; PULSE 50
--- NOTE | 2019-05-12 13:59 | P.PN ---
Progress Note - Text Detailed discussion with the patient regarding use of dofetilide I went over the Tikosyn education sheet Common side effects were discussed Risk of VF was discussed Patient was instructed to take Tikosyn approximately the same time every day, 2 times a day and avoid missing a dose. Patient was instructed never to try to make up for a missed dose. If the dose was missed, then the patient was instructed to take the normal amount of Tikosyn at the next scheduled time The importance of a Tikosyn bracelet was discussed Tikosyn's interaction with other medications were discussed. Common scenarios were described. The importance of having one pharmacy and making sure that drug interactions are checked by the provider before any new prescription is accepted. Interactions be rechecked with the pharmacist Avoid herbal medications and [id number] medications but simple medications like Motrin or Tylenol, decongestants, Mylanta were fine. The effect of reduced renal function on Tikosyn levels was discussed. Tikosyn should be discontinued immediately if there was a change/reduction in renal function based upon blood tests The patient was instructed to see me twice a year at the minimum. A BMP and magnesium 1 week prior and a 12-lead ECG that day prior to receiving a prescription for Tikosyn The scenarios of severe diarrhea, unusual sweating, vomiting and the effect on Tikosyn especially with regards to a low potassium and low magnesium were discussed Scenarios that will require an ER or urgent care visit were discussed All discharge medications were discussed Specifically the interaction with cimetidine, nausea and vomiting medications, verapamil, hydrochlorothiazide, other antiarrhythmic drugs, specific antibiotics were discussed. Patient verbalized an understanding of how to use Tikosyn
== END 2019-05-12 13:46 | disposition home or self-care (01) | DRG 949 ==
LOC: 3SCARD 05-08 13:27
PROVIDERS: ADMIT Internal Medicine Clinical Cardiac Electrophysiology; ATTEND Internal Medicine Clinical Cardiac Electrophysiology
DX: Z51.81 Encounter for therapeutic drug level monitoring (principal); I48.1 Persistent atrial fibrillation; C91.10 Chronic lymphocytic leukemia of B-cell type not having achieved remission; I47.2 Ventricular tachycardia; E78.5 Hyperlipidemia, unspecified; G47.30 Sleep apnea, unspecified; Z99.89 Dependence on other enabling machines and devices; I10 Essential (primary) hypertension; I25.10 Atherosclerotic heart disease of native coronary artery without angina pectoris; I49.3 Ventricular premature depolarization; K21.9 Gastro-esophageal reflux disease without esophagitis; K58.9 Irritable bowel syndrome, unspecified; M79.7 Fibromyalgia; Z79.01 Long term (current) use of anticoagulants; Z79.82 Long term (current) use of aspirin; Z79.890 Hormone replacement therapy; Z79.899 Other long term (current) drug therapy; Z87.440 Personal history of urinary (tract) infections; Z96.653 Presence of artificial knee joint, bilateral; Z96.649 Presence of unspecified artificial hip joint; Z95.5 Presence of coronary angioplasty implant and graft; Z90.710 Acquired absence of both cervix and uterus
CPT/HCPCS: 76770; 80048; 81001; 83735; 84443; 85027

== ENCOUNTER 2019-05-21 15:22 | Emergency (ER) | payer MEDICARE ==
[2019-05-21 15:42] VITALS: RESP 16; TEMP 97.9
--- NOTE | 2019-05-21 16:29 | ED ---
General Adult HPI - General Chief complaint: GI Bleed Stated complaint: Black Stools Time Seen by Provider: 05/21/19 15:53 Source: patient Mode of arrival: ambulatory Limitations: no limitations - History of Present Illness Initial comments: Patient is a 73-year-old female presents with a chief complaint of dark stools and shortness of breath. She states that this is been going on for about 3 days. Patient states that she was recently loaded with Tykosin by Dr. Nolen. She states that after being loaded she felt good, but when she went home she s tarted having progressively worse diarrhea. She states it is dark and watery. She admits to taking Mag-Ox daily. She is also on Xarelto. Patient states that her shortness of breath seems to be getting worse. - Related Data Home Medications Medication Instructions Recorded Confirmed Atenolol 12.5 mg PO BID 06/17/15 05/21/19 PARoxetine HCL [Paroxetine HCl] 10 mg PO QAM 06/17/15 05/21/19 Pantoprazole Sodium 40 mg PO DAILY 06/17/15 05/21/19 Aspirin [Adult Low Dose Aspirin EC] 81 mg PO HS 06/15/17 05/21/19 amLODIPine [Norvasc] 5 mg PO DAILY 06/15/17 05/21/19 Cholecalciferol [Vitamin D3 (25 5,000 unit PO DAILY 04/21/18 05/21/19 Mcg = 1000 Iu)] Rivaroxaban [Xarelto] 20 mg PO QAM 04/21/18 05/21/19 Ezetimibe [Zetia] 10 mg PO DAILY 12/09/18 05/21/19 Levothyroxine Sodium [Synthroid] 150 mcg PO DAILY 05/08/19 05/21/19 Nitroglycerin Sl Tabs [Nitrostat] 0.4 mg SL Q5M 05/21/19 05/21/19 Previous Rx's Medication Instructions Recorded Dofetilide 250 mcg PO Q12HR #90 capsule 05/12/19 Magnesium Oxide [Mag-Ox] 400 mg PO DAILY #90 tablet 05/12/19 Spironolactone 50 mg PO DAILY #90 tablet 05/12/19 Dicyclomine [Bentyl] 20 mg PO BID #14 tablet 05/21/19 Allergies Allergy/AdvReac Type Severity Reaction Status Date / Time codeine Allergy "couldn't Verified 05/21/19 17:22 breathe" hydroxyzine HCl Allergy Unknown Verified 05/21/19 17:22 [From Vistaril] hydroxyzine pamoate Allergy Hallucinati Verified 05/21/19 17:22 [From Vistaril] ons Iodinated Contrast- Oral and Allergy Anaphylaxis Verified 05/21/19 17:22 IV Dye [Iodinated Contrast Media - IV Dye] metoclopramide HCl Allergy "couldn't Verified 05/21/19 17:22 [From Reglan] breathe" Penicillins Allergy Rash/Hives Verified 05/21/19 17:22 ranitidine [From Zantac] Allergy Rash/Hives Verified 05/21/19 17:22 sulfamethoxazole Allergy Rash/Hives Verified 05/21/19 17:22 [From Bactrim] tree nut Allergy Anaphylaxis Verified 05/21/19 17:22 trimethoprim [From Bactrim] Allergy Unknown Verified 05/21/19 17:22 eluxadoline [From Viberzi] AdvReac Intermediate Chest Pain Verified 05/21/19 15:43 hydralazine AdvReac Hallucinati Verified 05/21/19 15:43 ons Review of Systems ROS Statement: Those systems with pertinent positive or pertinent negative responses have been documented in the HPI. ROS Other: All systems not noted in ROS Statement are negative. Cardiovascular: Reports: dyspnea on exertion Gastrointestinal: Reports: diarrhea, melena Past Medical History Past Medical History: Atrial Fibrillation, Coronary Artery Disease (CAD), Cancer, Fibromyalgia, GERD/Reflux, Hyperlipidemia, Hypertension, Osteoarthritis (OA), Sleep Apnea/CPAP/BIPAP, Thyroid Disorder Additional Past Medical History / Comment(s): Hx. chronic lymphocytic leukemia, ANEMIA, brucellosis, hiatal hernia, hx IBS, hx diverticulitis, uses CPAP, see Dr Nolen H & P History of Any Multi-Drug Resistant Organisms: None Reported Past Surgical History: Appendectomy, Back Surgery, Bowel Resection, Cholecystectomy, Heart Catheterization With Stent, Hysterectomy, Joint Replacement Additional Past Surgical History / Comment(s): JES HIP replacement, JES KNEE REPLACEMENTS. CERVICAL FUSION. hx of epidurals for back pain Past Anesthesia/Blood Transfusion Reactions: Motion Sickness Additional Past Anesthesia/Blood Transfusion Reaction / Comment(s): . Date of Last Stent Placement:: 2012 Past Psychological History: No Psychological Hx Reported Smoking Status: Never smoker Past Alcohol Use History: None Reported Past Drug Use History: None Reported - Past Family History Brother(s) Family Medical History: Cancer Mother Family Medical History: Cancer General Exam Limitations: no limitations General appearance: alert, in no apparent distress Head exam: Present: atraumatic, normocephalic Eye exam: Present: normal appearance ENT exam: Present: normal exam Neck exam: Present: normal inspection Respiratory exam: Present: normal lung sounds bilaterally. Absent: respiratory distress, wheezes Cardiovascular Exam: Present: regular rate, normal rhythm GI/Abdominal exam: Present: soft. Absent: distended, tenderness Extremities exam: Present: normal inspection Back exam: Present: normal inspection Neurological exam: Present: alert, oriented X3, normal gait Psychiatric exam: Present: normal affect, normal mood Skin exam: Present: warm, dry, intact Course Vital Signs 05/21/19 05/21/19 15:38 18:15 Temperature 97.9 F Pulse Rate 68 70 Respiratory 16 16 Rate Blood Pressure 144/85 141/82 O2 Sat by Pulse 98 97 Oximetry Medical Decision Making - Medical Decision Making Patient presents with chief complaint of dark stools and diarrhea. On initial evaluation, vitals are stable, patient is in no acute distress. He will be evaluated because he was clinically cardiac enzymes, occult stool test. EKG performed at 1633 shows normal sinus rhythm with a rate of 62 bpm, segments are within normal limits, no acute signs of ischemia present. 8:24 PM Lab evaluation of this patient shows evidence of hemoconcentration. Hgb is 16 and stable. labs otherwise unremarkable, patient give 500 cc of IVF. case discussed with Dr. Boudreaux regarding the mag ox (thought to be the causitive agent to her symptoms) who states that this is needed to prevent QT pro longation. at this time, patient recommended bentyl and close follow up with Dr. Nolen in the office. on re-examination, patient does not have any abdominal tenderness, no episodes of nausea and vomiting in the ED, no diarrhea in the ED. Vitals remain stable. Patient stable for discharge. she was instructed to return to the ED if her symptoms worsen or change. - Lab Data Result diagrams: 05/21/19 16:21 05/21/19 16:21 Lab Results 05/21/19 05/21/19 05/21/19 Range/Units 16:21 16:21 16:21 WBC 11.4 H (3.8-10.6) k/uL RBC 5.37 (3.80-5.40) m/uL Hgb 16.2 H (11.4-16.0) gm/dL Hct 48.6 H (34.0-46.0) % MCV 90.6 (80.0-100.0) fL MCH 30.2 (25.0-35.0) pg MCHC 33.3 (31.0-37.0) g/dL RDW 13.0 (11.5-15.5) % Plt Count 334 (150-450) k/uL Neutrophils % 55 % Lymphocytes % 33 % Monocytes % 5 % Eosinophils % 1 % Basophils % 1 % Neutrophils # 6.3 (1.3-7.7) k/uL Lymphocytes # 3.8 (1.0-4.8) k/uL Monocytes # 0.6 (0-1.0) k/uL Eosinophils # 0.1 (0-0.7) k/uL Basophils # 0.1 (0-0.2) k/uL Sodium 139 (137-145) mmol/L Potassium 4.8 (3.5-5.1) mmol/L Chloride 104 (98-107) mmol/L Carbon Dioxide 20 L (22-30) mmol/L Anion Gap 15 mmol/L BUN 28 H (7-17) mg/dL Creatinine 1.24 H (0.52-1.04) mg/dL Est GFR (CKD-EPI)AfAm 49 (>60 ml/min/1.73 sqM) Est GFR (CKD-EPI)NonAf 43 (>60 ml/min/1.73 sqM) Glucose 103 H (74-99) mg/dL Calcium 10.1 (8.4-10.2) mg/dL Total Bilirubin 0.6 (0.2-1.3) mg/dL AST 29 (14-36) U/L ALT 25 (9-52) U/L Alkaline Phosphatase 82 (38-126) U/L Troponin I (0.000-0.034) ng/mL NT-Pro-B Natriuret Pep 109 pg/mL Total Protein 8.3 H (6.3-8.2) g/dL Albumin 5.1 H (3.5-5.0) g/dL 05/21/ Range/Units 16:21 WBC (3.8-10.6) k/uL RBC (3.80-5.40) m/uL Hgb (11.4-16.0) gm/dL Hct (34.0-46.0) % MCV (80.0-100.0) fL MCH (25.0-35.0) pg MCHC (31.0-37.0) g/dL RDW (11.5-15.5) % Plt Count (150-450) k/uL Neutrophils % % Lymphocytes % % Monocytes % % Eosinophils % % Basophils % % Neutrophils # (1.3-7.7) k/uL Lymphocytes # (1.0-4.8) k/uL Monocytes # (0-1.0) k/uL Eosinophils # (0-0.7) k/uL Basophils # (0-0.2) k/uL Sodium (137-145) mmol/L Potassium (3.5-5.1) mmol/L Chloride (98-107) mmol/L Carbon Dioxide (22-30) mmol/L Anion Gap mmol/L BUN (7-17) mg/dL Creatinine (0.52-1.04) mg/dL Est GFR (CKD-EPI)AfAm (>60 ml/min/1.73 sqM) Est GFR (CKD-EPI)NonAf (>60 ml/min/1.73 sqM) Glucose (74-99) mg/dL Calcium (8.4-10.2) mg/dL Total Bilirubin (0.2-1.3) mg/dL AST (14-36) U/L ALT (9-52) U/L Alkaline Phosphatase (38-126) U/L Troponin I <0.012 (0.000-0.034) ng/mL NT-Pro-B Natriuret Pep pg/mL Total Protein (6.3-8.2) g/dL Albumin (3.5-5.0) g/dL Disposition Clinical Impression: Diarrhea Disposition: HOME SELF-CARE Condition: Good Instructions (If sedation given, give patient instructions): Nutrition Tips for Relief of Diarrhea (ED) Is patient prescribed a controlled substance at d/c from ED?: No Referrals: Huma Jarquin DO [Primary Care Provider] - 1-2 days
[2019-05-21 16:43] LABS: Basophils # (A) 0.1 k/uL (0-0.2); Basophils % (A) 1 %; Eosinophils # (A) 0.1 k/uL (0-0.7); Eosinophils % (A) 1 %; HCT 48.6 % (34.0-46.0); HGB 16.2 gm/dL (11.4-16.0); Lymphocytes # (A) 3.8 k/uL (1.0-4.8); Lymphocytes % (A) 33 %; MCH 30.2 pg (25.0-35.0); MCHC 33.3 g/dL (31.0-37.0); MCV 90.6 fL (80.0-100.0); Mean Platelet Volume 6.9; Monocytes # (A) 0.6 k/uL (0-1.0); Monocytes % (A) 5 %; Neutrophils # (A) 6.3 k/uL (1.3-7.7); Neutrophils % (A) 55 %; Platelet Count 334 k/uL (150-450); RBC 5.37 m/uL (3.80-5.40); WBC 11.4 k/uL (3.8-10.6)
[2019-05-21 17:09] LABS: Albumin 5.1 g/dL (3.5-5.0); Calcium 10.1 mg/dL (8.4-10.2); Potassium 4.8 mmol/L (3.5-5.1); Total Bilirubin 0.6 mg/dL (0.2-1.3); Total Protein 8.3 g/dL (6.3-8.2)
--- NOTE | 2019-05-21 17:15 | XR ---
EXAMINATION TYPE: XR chest 2V DATE OF EXAM: 05/21/2019 COMPARISON: 12/07/2016 HISTORY: Difficulty breathing TECHNIQUE: Frontal and lateral views of the chest are obtained. FINDINGS: Heart and mediastinum are normal. Lungs are clear. Diaphragm is normal. Facet aorta is ath eromatous. IMPRESSION: No active cardiopulmonary disease. Normal heart. No change.
[2019-05-21] MEDS ORDERED: SODIUM CHLORIDE 0.9% 500 ML 500 ML IV ONE (17:55)
[2019-05-21 18:16] VITALS: BP 141/82; PULSE 70
== END 2019-05-21 20:58 | disposition home or self-care (01) ==
LOC: EC 15:22
DX: R19.7 Diarrhea, unspecified (principal); R06.02 Shortness of breath; R19.5 Other fecal abnormalities; I48.91 Unspecified atrial fibrillation; I25.10 Atherosclerotic heart disease of native coronary artery without angina pectoris; K21.9 Gastro-esophageal reflux disease without esophagitis; E78.5 Hyperlipidemia, unspecified; I10 Essential (primary) hypertension; M19.90 Unspecified osteoarthritis, unspecified site; G47.30 Sleep apnea, unspecified; E07.9 Disorder of thyroid, unspecified; Z85.6 Personal history of leukemia; Z87.19 Personal history of other diseases of the digestive system; Z90.49 Acquired absence of other specified parts of digestive tract; Z90.710 Acquired absence of both cervix and uterus; Z95.5 Presence of coronary angioplasty implant and graft; Z96.643 Presence of artificial hip joint, bilateral; Z96.653 Presence of artificial knee joint, bilateral; Z98.1 Arthrodesis status; Z98.890 Other specified postprocedural states; Z99.89 Dependence on other enabling machines and devices; Z79.01 Long term (current) use of anticoagulants; Z79.82 Long term (current) use of aspirin; Z79.890 Hormone replacement therapy; Z79.899 Other long term (current) drug therapy; Z88.0 Allergy status to penicillin; Z88.1 Allergy status to other antibiotic agents; Z88.2 Allergy status to sulfonamides; Z88.5 Allergy status to narcotic agent; Z88.8 Allergy status to other drugs, medicaments and biological substances; Z91.018 Allergy to other foods; Z91.041 Radiographic dye allergy status
CPT/HCPCS: 36415; 71046; 80053; 83880; 84484; 85025; 93005; 96360; 99285

== ENCOUNTER → 2019-05-25 | Outpatient (CLI) | payer MEDICARE ==
[2019-05-25 16:18] LABS: African American GFR (CKD) 72.5 (60.0-200.0); Anion Gap 8.3 mmol/L (4.00-12.00); BUN/Creat Ratio 36.67 Ratio (12.00-20.00); Calcium 9.2 mg/dL (8.7-10.3); Carbon Dioxide 22.7 mmol/L (21.6-31.8); Potassium 4.4 mmol/L (3.5-5.5)
== END | disposition home or self-care (01) ==
LOC: LABWHC1 10:59
PROVIDERS: ATTEND Nurse Practitioner Adult Health
DX: Z51.81 Encounter for therapeutic drug level monitoring (principal); I48.2 Chronic atrial fibrillation
CPT/HCPCS: 36415; 80048; 83735

== ENCOUNTER → 2019-11-03 | Outpatient (CLI) | payer MEDICARE ==
--- NOTE | 2019-11-06 08:52 | MM ---
Reason for exam: clinical finding. Last mammogram was performed 9 months ago. History: Patient is postmenopausal and has history of other cancer at age 67. Family history of breast cancer at age 42. Took estrogen for 30 years beginning at age 29. Physical Findings: Nurse did not find any significant physical abnormalities on exam. MG 3D Diag Mammo W/Cad LT CC and MLO view(s) were taken of the left breast. Prior study comparison: January 26, 2019, bilateral MG 3d screening mammo w/cad. December 06, 2017, bilateral MG 3d screening mammo w/cad. There are scattered fibroglandular densities. No significant new findings when compared with previous films. These results were verbally communicated with the patient and result sheet given to the patient on 11/03/19. ASSESSMENT: Incomplete: need additional imaging evaluation, BI-RAD 0 RECOMMENDATION: Ultrasound of the left breast. As ordered for pain.
--- NOTE | 2019-11-06 08:53 | USB ---
Reason for exam: clinical finding. History: Patient is postmenopausal and has history of other cancer at age 67. Family history of breast cancer at age 42. Took estrogen for 30 years beginning at age 29. US Breast LT Left complete breast ultrasound includes all four quadrants, the retroareolar region and axilla. Finding demonstrates ductal ectasia at 3 o'clock, ductal ectasia at the posterior nipple and a 1.4 x 2.6 x 0.6cm benign appearing lymph node at the axilla. These results were verbally communicated with the patient and result sheet given to the patient on 11/03/19. ASSESSMENT: Benign, BI-RAD 2 RECOMMENDATION: Return to routine screening mammogram schedule for both breasts. Back on schedule for January 2020. Manage on a clinical basis with regard to left breast pain.
== END ==
LOC: RADMAMWWP 13:31
PROVIDERS: ATTEND Family Medicine
DX: R92.8 Other abnormal and inconclusive findings on diagnostic imaging of breast (principal); N64.4 Mastodynia; Z80.3 Family history of malignant neoplasm of breast
CPT/HCPCS: 77065; 76641; G0279; 77061

== ENCOUNTER → 2020-06-11 | Outpatient (CLI) | payer MEDICARE ==
--- NOTE | 2020-06-11 15:39 | PN ---
PROGRESS NOTE Shannan is 74, coming in for annual check regarding obstructive sleep apnea. She is 74, and she has an AHI of 17, consistent with moderately severe disease. She remains to be on APAP with a minimum pressure of 5, maximum pressure of 9. On today's compliancy, the patient has been averaging around 6.4 hours of APAP use per night. AHI is down to 2.3. Her P 90 pressure is at 8.0. She remains on long-term anticoagulation with Xarelto regarding her paroxysmal atrial fibrillation. No signs of any hyper or hypothyroidism. No major hypersomnia or sleepiness during the day. No signs of any decompensated heart failure. No other new complaints otherwise for now. Her treatment has been extremely successful for now. Note that the patient followed up with Dr. Nolen regarding her atrial fibrillation. She has undergone previous ablation that was successful. OUTPATIENT MEDICATION: Includes Xarelto 20 mg p.o. daily, Synthroid 150 mg p.o. daily, Protonix 40 mg p.o. daily, Zetia 10 mg p.o. daily, Norvasc 5 mg p.o. daily, Tenormin 12.5 mg p.o. daily, Paxil 20 mg p.o. daily, Aldactone 50 mg p.o. daily, aspirin 81 mg p.o. daily, and multivitamin. REVIEW OF SYSTEMS: A 14-point review of system was done, positive findings are mentioned above history of present illness. There is a 3 pound weight loss. PHYSICAL EXAM: BP is 145/72, pulse 65, respirations 16, temperature 97.8, saturation is 96% on room air. Height is 5, 2, weight is 169. GENERAL APPEARANCE: Calm, comfortable. HEAD: Atraumatic, normocephalic. NECK: Supple, there is no JVD. No goiter or neck masses. LUNGS: Clear to auscultation. HEART: Sounds are regular rate and rhythm, normal, S1, S2 no murmurs. ABDOMEN: Soft, nontender, no organomegaly. EXTREMITIES: No edema, no cyanosis or clubbing. NEUROLOGIC: Awake and alert, there is no focal neurological deficit. IMPRESSION: 1. JOSÉ ANTONIO, moderate severe AHI of 17, currently on APAP, minimum pressure of 5, maximum pressure of 9 with excellent response and clinical response and compliancy. 2. Paroxysmal atrial fibrillation, post ablation, remains on long-term anticoagulation with Xarelto. 3. Hypersomnia, recovered. 4. Hypertension. 5. Hypothyroidism. 6. Coronary artery disease. 7. Diabetes mellitus. PLAN: 1. Encourage further weight loss. 2. Continue CPAP therapy at the same level of pressure, the patient is on APAP mode. 3. Continue using the Brevida XS-size. 4. Encourage implementing good sleep hygiene measures. 5. See me back in a year's time in followup. MMODL / IJN: [id number] /
== END | disposition home or self-care (01) ==
LOC: SLEEP 13:34
PROVIDERS: ATTEND Internal Medicine Critical Care Medicine
DX: G47.33 Obstructive sleep apnea (adult) (pediatric) (principal); G47.10 Hypersomnia, unspecified; I10 Essential (primary) hypertension; E03.9 Hypothyroidism, unspecified; I25.10 Atherosclerotic heart disease of native coronary artery without angina pectoris; E11.9 Type 2 diabetes mellitus without complications; I48.0 Paroxysmal atrial fibrillation; Z99.89 Dependence on other enabling machines and devices; Z79.01 Long term (current) use of anticoagulants

== ENCOUNTER 2020-12-29 21:49 | Inpatient (IN) | payer MEDICARE ==
--- NOTE | 2020-12-29 22:14 | ED ---
Back Pain HPI - General Chief Complaint: Back Pain/Injury Stated Complaint: +COVID,Increased Weakness Time Seen by Provider: 12/29/20 22:13 Source: patient, family Limitations: no limitations - History of Present Illness Initial Comments: 75-year-old female with history of brucellosis presents to emergency department with a chief complaint of rotavirus. Patient states she was diagnosed 7 days ago with coronavirus and was completely asymptomatically for the first 5 days. Patient reports about 2 days ago she developed nausea with several episodes of nonbilious and nonbloody vomiting. She denies any vomiting today. She also has nonbloody diarrhea. Patient does report decreased appetite due to nausea. Patient reports increased fatigue and weakness over the last 2 days along with back pain with thoracic region that does not seem to be radiating anywhere. States the pain is exacerbated with left and right rotation and bending over. She denies any chest pain or shortness of breath. Does report fevers and chills at home, and has been taking Tylenol. Patient states due to her history of brucellosis, she feels the significant myalgias and "bone pain" feels like another exacerbation of it. States her last acute episode was about 5 years ago. States she was diagnosed about 15 years ago. - Related Data Home Medications Medication Instructions Recorded Confirmed Pantoprazole Sodium 40 mg PO DAILY 06/17/15 12/29/20 atenoloL [Atenolol] 12.5 mg PO DAILY 06/17/15 12/29/20 Aspirin [Adult Low Dose Aspirin EC] 81 mg PO DAILY 06/15/17 12/29/20 amLODIPine [Norvasc] 5 mg PO DAILY 06/15/17 12/29/20 Rivaroxaban [Xarelto] 20 mg PO DAILY 04/21/18 12/29/20 Ezetimibe [Zetia] 10 mg PO DAILY 12/09/18 12/29/20 Levothyroxine Sodium [Synthroid] 150 mcg PO DAILY 05/08/19 12/29/20 Albuterol Inhaler [Ventolin Hfa 2 puff INHALATION RT-QID PRN 12/29/20 12/29/20 Inhaler] Cholecalciferol (Vitamin D3) 125 mcg PO DAILY 12/29/20 12/29/20 [Vitamin D3 (5000 Iu)] Loperamide HCl [Imodium A-D] 2 - 4 mg PO QID PRN 12/29/20 12/29/20 Multivitamins, Thera [Multivitamin 1 tab PO DAILY 12/29/20 12/29/20 (formulary)] Ondansetron Odt [Zofran Odt] 4 mg PO DAILY PRN 12/29/20 12/29/20 PARoxetine [Paxil] 20 mg PO DAILY 12/29/20 12/29/20 Triamcinolone Acetonide [Nasacort] 2 spray EA NOSTRIL HS 12/29/20 12/29/20 Previous Rx's Medication Instructions Recorded Spironolactone 50 mg PO DAILY #90 tablet 05/12/19 Allergies Allergy/AdvReac Type Severity Reaction Status Date / Time codeine Allergy "couldn't Verified 12/29/20 23:28 breathe" hydroxyzine HCl Allergy Unknown Verified 12/29/20 23:28 [From Vistaril] hydroxyzine pamoate Allergy Hallucinati Verified 12/29/20 23:28 [From Vistaril] ons Iodinated Contrast Media Allergy Anaphylaxis Verified 12/29/20 23:28 [Iodinated Contrast Media - IV Dye] metoclopramide HCl Allergy "couldn't Verified 12/29/20 23:28 [From Reglan] breathe" Penicillins Allergy Rash/Hives Verified 12/29/20 23:28 ranitidine [From Zantac] Allergy Rash/Hives Verified 12/29/20 23:28 sulfamethoxazole Allergy Rash/Hives Verified 12/29/20 23:28 [From Bactrim] tree nut Allergy Anaphylaxis Verified 12/29/20 23:28 trimethoprim [From Bactrim] Allergy Unknown Verified 12/29/20 23:28 eluxadoline [From Viberzi] AdvReac Intermediate Chest Pain Verified 12/29/20 23:28 hydralazine AdvReac Hallucinati Verified 12/29/20 23:28 ons Review of Systems ROS Statement: Those systems with pertinent positive or pertinent negative responses have been documented in the HPI. ROS Other: All systems not noted in ROS Statement are negative. Past Medical History Past Medical History: Atrial Fibrillation, Coronary Artery Disease (CAD), Cancer, Fibromyalgia, GERD/Reflux, Hyperlipidemia, Hypertension, Osteoarthritis (OA), Sleep Apnea/CPAP/BIPAP, Thyroid Disorder Additional Past Medical History / Comment(s): Hx. chronic lymphocytic leukemia, ANEMIA, brucellosis, hiatal hernia, hx IBS, hx diverticulitis, uses CPAP, see Dr Nolen H & P History of Any Multi-Drug Resistant Organisms: None Reported Past Surgical History: Appendectomy, Back Surgery, Bowel Resection, Cholecystectomy, Heart Catheterization With Stent, Hysterectomy, Joint Replacement Additional Past Surgical History / Comment(s): JES HIP replacement, JES KNEE REPLACEMENTS. CERVICAL FUSION. hx of epidurals for back pain Past Anesthesia/Blood Transfusion Reactions: Motion Sickness Additional Past Anesthesia/Blood Transfusion Reaction / Comment(s): . Date of Last Stent Placement:: 2012 Past Psychological History: No Psychological Hx Reported Smoking Status: Never smoker Past Alcohol Use History: None Reported Past Drug Use History: None Reported - Past Family History Brother(s) Family Medical History: Cancer Mother Family Medical History: Cancer General Exam Limitations: no limitations General appearance: alert, in no apparent distress, obese Head exam: Present: atraumatic, normocephalic, normal inspection Eye exam: Present: normal appearance, PERRL, EOMI Pupils: Present: normal accommodation ENT exam: Present: normal exam, normal oropharynx, mucous membranes moist Neck exam: Present: normal inspection, full ROM. Absent: tenderness Respiratory exam: Present: normal lung sounds bilaterally. Absent: respiratory distress Cardiovascular Exam: Present: regular rate, normal rhythm, normal heart sounds GI/Abdominal exam: Present: soft. Absent: distended, tenderness, guarding, rebound, rigid Extremities exam: Present: normal inspection, full ROM, normal capillary refill. Absent: tenderness, pedal edema, joint swelling Back exam: Present: normal inspection, full ROM. Absent: tenderness, CVA tenderness (R), CVA tenderness (L) Neurological exam: Present: alert, oriented X3, normal gait Psychiatric exam: Present: normal affect, normal mood Skin exam: Present: warm, dry, intact, normal color Course Vital Signs 12/29/20 12/29/20 12/30/20 21:51 23:00 00:45 Temperature 97.9 F 98.0 F 99.3 F Pulse Rate 87 76 88 Respiratory 20 20 20 Rate Blood Pressure 128/65 121/59 129/63 O2 Sat by Pulse 97 93 L 96 Oximetry Medical Decision Making - Medical Decision Making 75-year-old female with history of brucellosis presents to emergency Department with a chief complaint of covid-19. On physical examination, patient appears to the fatigue with minimal movement. She does not appear to be short of breath or any respiratory distress. Initially her oxygen saturation level was 97 room air. During ED stay, patient decreased to 93 on room air. Patient was started on 2 L of nasal cannula which improved to 97% oxygen saturation. Ambulatory O2 brings her oxygen levels down to 9192 percent. CBC unremarkable. Coags within normal limits. Negative d-dimer. CMP reveals hyponatremia. Mild elevation in inflammatory markers including CRP LDH. Ferritin pending. Chest x-ray shows no signs pneumonia but there is increased pulmonary congestion. Lactic acid within normal limits. Patient does not have any chest pain or shortness of breath. She was given IV fluids and antiemetics in the emergency department. Patient will be admitted for further medical management. I spoke to Dr. Jones who will admit patient. Case discussed with Dr.Roskopp Call on consult - Lab Data Result diagrams: 12/29/20 23:00 12/29/20 23:00 Lab Results 12/29/20 12/29/20 12/29/20 Range/Units 23:00 23:00 23:00 WBC 7.0 (3.8-10.6) k/uL RBC 4.59 (3.80-5.40) m/uL Hgb 14.1 (11.4-16.0) gm/dL Hct 41.5 (34.0-46.0) % MCV 90.4 (80.0-100.0) fL MCH 30.8 (25.0-35.0) pg MCHC 34.1 (31.0-37.0) g/dL RDW 12.4 (11.5-15.5) % Plt Count 192 (150-450) k/uL MPV 7.9 Neutrophils % 69 % Lymphocytes % 24 % Monocytes % 5 % Eosinophils % 0 % Basophils % 1 % Neutrophils # 4.9 (1.3-7.7) k/uL Lymphocytes # 1.7 (1.0-4.8) k/uL Monocytes # 0.3 (0-1.0) k/uL Eosinophils # 0.0 (0-0.7) k/uL Basophils # 0.0 (0-0.2) k/uL PT 11.1 (9.0-12.0) sec INR 1.1 (<1.2) APTT 33.4 H (22.0-30.0) sec D-Dimer <0.17 (<0.60) mg/L FEU Sodium 130 L (137-145) mmol/L Potassium 4.9 (3.5-5.1) mmol/L Chloride 101 (98-107) mmol/L Carbon Dioxide 19 L (22-30) mmol/L Anion Gap 10 mmol/L BUN 17 (7-17) mg/dL Creatinine 0.89 (0.52-1.04) mg/dL Est GFR (CKD-EPI)AfAm 72 (>60 ml/min/1.73 sqM) Est GFR (CKD-EPI)NonAf 63 (>60 ml/min/1.73 sqM) Glucose 127 H (74-99) mg/dL Plasma Lactic Acid Gomez (0.7-2.0) mmol/L Calcium 8.6 (8.4-10.2) mg/dL Magnesium 1.9 (1.6-2.3) mg/dL Total Bilirubin 0.7 (0.2-1.3) mg/dL AST 133 H (14-36) U/L ALT 70 H (4-34) U/L Alkaline Phosphatase 105 (38-126) U/L Lactate Dehydrogenase 955 H (313-618) U/L C-Reactive Protein 51.6 H (<10.0) mg/L Total Protein 6.5 (6.3-8.2) g/dL Albumin 3.8 (3.5-5.0) g/dL 12/29/20 Range/Units 23:00 WBC (3.8-10.6) k/uL RBC (3.80-5.40) m/uL Hgb (11.4-16.0) gm/dL Hct (34.0-46.0) % MCV (80.0-100.0) fL MCH (25.0-35.0) pg MCHC (31.0-37.0) g/dL RDW (11.5-15.5) % Plt Count (150-450) k/uL MPV Neutrophils % % Lymphocytes % % Monocytes % % Eosinophils % % Basophils % % Neutrophils # (1.3-7.7) k/uL Lymphocytes # (1.0-4.8) k/uL Monocytes # (0-1.0) k/uL Eosinophils # (0-0.7) k/uL Basophils # (0-0.2) k/uL PT (9.0-12.0) sec INR (<1.2) APTT (22.0-30.0) sec D-Dimer (<0.60) mg/L FEU Sodium (137-145) mmol/L Potassium (3.5-5.1) mmol/L Chloride (98-107) mmol/L Carbon Dioxide (22-30) mmol/L Anion Gap mmol/L BUN (7-17) mg/dL Creatinine (0.52-1.04) mg/dL Est GFR (CKD-EPI)AfAm (>60 ml/min/1.73 sqM) Est GFR (CKD-EPI)NonAf (>60 ml/min/1.73 sqM) Glucose (74-99) mg/dL Plasma Lactic Acid Gomez 0.8 (0.7-2.0) mmol/L Calcium (8.4-10.2) mg/dL Magnesium (1.6-2.3) mg/dL Total Bilirubin (0.2-1.3) mg/dL AST (14-36) U/L ALT (4-34) U/L Alkaline Phosphatase (38-126) U/L Lactate Dehydrogenase (313-618) U/L C-Reactive Protein (<10.0) mg/L Total Protein (6.3-8.2) g/dL Albumin (3.5-5.0) g/dL Disposition Clinical Impression: COVID-19, Weakness, Nausea & vomiting, Hyponatremia Disposition: ADMITTED IP TO THIS HOSP Condition: Fair Is patient prescribed a controlled substance at d/c from ED?: No Referrals: Huma Jarquin DO [Primary Care Provider] - 1-2 days Time of Disposition: 01:13
[2020-12-29] MEDS ORDERED: ONDANSETRON 4 MG/2 ML VIAL IVP STA (22:28)
--- NOTE | 2020-12-29 23:09 | XR ---
EXAMINATION TYPE: XR chest 1V portable DATE OF EXAM: 12/29/2020 COMPARISON: 05/21/2019 HISTORY: Nausea and back pain TECHNIQUE: Single view FINDINGS: Heart is normal. There is no pulmonary consolidation. There is slight coarsening of interst itial markings. There is no pleural effusion. There is cervical spine fusion surgery. IMPRESSION: Slight increased interstitial pulmonary density compared to old exam. Normal heart. No he art failure.
[2020-12-29 23:35] LABS: Albumin 3.8 g/dL (3.5-5.0); Basophils % (A) 1 %; C Reactive Protein 51.6 mg/L (<10.0); Calcium 8.6 mg/dL (8.4-10.2); Eosinophils % (A) 0 %; HCT 41.5 % (34.0-46.0); HGB 14.1 gm/dL (11.4-16.0); Lymphocytes # (A) 1.7 k/uL (1.0-4.8); Lymphocytes % (A) 24 %; MCH 30.8 pg (25.0-35.0); MCHC 34.1 g/dL (31.0-37.0); MCV 90.4 fL (80.0-100.0); Magnesium 1.9 mg/dL (1.6-2.3); Mean Platelet Volume 7.9; Monocytes # (A) 0.3 k/uL (0-1.0); Monocytes % (A) 5 %; Neutrophils # (A) 4.9 k/uL (1.3-7.7); Neutrophils % (A) 69 %; Platelet Count 192 k/uL (150-450); Potassium 4.9 mmol/L (3.5-5.1); RBC 4.59 m/uL (3.80-5.40); RDW 12.4 % (11.5-15.5); Total Bilirubin 0.7 mg/dL (0.2-1.3); Total Protein 6.5 g/dL (6.3-8.2)
[2020-12-29 23:51] LABS: D-Dimer <0.17 mg/L FEU (<0.60); INR 1.1 (<1.2); Partial Thromboplastin Time 33.4 sec (22.0-30.0); Prothrombin Time 11.1 sec (9.0-12.0)
[2020-12-30] MEDS ORDERED: TRIMETHOBENZAMIDE 100 MG/ML 2 ML VIAL IM STA (00:26)
[2020-12-30] MEDS ORDERED: PROCHLORPERAZINE 5 MG TAB PO PRN (01:09)
[2020-12-30] MEDS ORDERED: NALOXONE 0.4 MG/ML 1 ML VIAL IV PRN (01:09)
[2020-12-30] MEDS ORDERED: ACETAMINOPHEN TAB 325 MG TAB PO PRN (01:09)
[2020-12-30] MEDS ORDERED: IBUPROFEN 400 MG TAB PO PRN (01:09)
[2020-12-30] MEDS ORDERED: ONDANSETRON 4 MG/2 ML VIAL IVP PRN (01:09)
[2020-12-30] MEDS ORDERED: LORazepam 2 MG/ML INJ IV PRN (01:09)
[2020-12-30] MEDS: SODIUM CHLORIDE 0.9% 1,000 ML IV SCH ×2 (01:44→15:36)
--- NOTE | 2020-12-30 03:45 | P.HPIM ---
History of Present Illness H&P Date: 12/30/20 Patient is a 75-year-old female with extensive PMH who presents to the emergency with complaints of nausea and vomiting after recent diagnosis of Covid 19. Patient notes that she was initially diagnosed 7 days ago and felt well up until 2 days ago when she developed nausea with multiple episodes of vomiting. She also reports lower back and bilateral flank pain which she feels brings on her nausea. She also reports multiple episodes of non-bloody diarrhea. Furthermore reports that due to her vomiting, she has been unable to eat or drink much and thereby feels weak and dehydrated. She also reports diffuse body aches. Denied fever, chills, cough, chest pain, shortness of breath. In the emergency room, her ambulatory SpO2 was 91% on room air. Chest x-ray revealed bilateral interstitial increased markings with EKG showing sinus rhythm with APCs at 82 bpm Review of Systems Pertinent positives and negatives as discussed in HPI, a complete review of systems was performed and all other systems are negative. Past Medical History Past Medical History: Atrial Fibrillation, Coronary Artery Disease (CAD), Cancer, Fibromyalgia, GERD/Reflux, Hyperlipidemia, Hypertension, Osteoarthritis (OA), Sleep Apnea/CPAP/BIPAP, Thyroid Disorder Additional Past Medical History / Comment(s): Hx. chronic lymphocytic leukemia, ANEMIA, brucellosis, hiatal hernia, hx IBS, hx diverticulitis, uses CPAP, see Dr Nolen H & P History of Any Multi-Drug Resistant Organisms: None Reported Past Surgical History: Appendectomy, Back Surgery, Bowel Resection, Cholecyst ectomy, Heart Catheterization With Stent, Hysterectomy, Joint Replacement Additional Past Surgical History / Comment(s): JES HIP replacement, JES KNEE REPLACEMENTS. CERVICAL FUSION. hx of epidurals for back pain Past Anesthesia/Blood Transfusion Reactions: Motion Sickness Additional Past Anesthesia/Blood Transfusion Reaction / Comment(s): . Date of Last Stent Placement:: 2012 Past Psychological History: No Psychological Hx Reported Smoking Status: Never smoker Past Alcohol Use History: None Reported Past Drug Use History: None Reported - Past Family History Brother(s) Family Medical History: Cancer Mother Family Medical History: Cancer Medications and Allergies Home Medications Medication Instructions Recorded Confirmed Type Pantoprazole Sodium 40 mg PO DAILY 06/17/15 12/29/20 History atenoloL [Atenolol] 12.5 mg PO DAILY 06/17/15 12/29/20 History Aspirin [Adult Low Dose Aspirin EC] 81 mg PO DAILY 06/15/17 12/29/20 History amLODIPine [Norvasc] 5 mg PO DAILY 06/15/17 12/29/20 History Rivaroxaban [Xarelto] 20 mg PO DAILY 04/21/18 12/29/20 History Ezetimibe [Zetia] 10 mg PO DAILY 12/09/18 12/29/20 History Levothyroxine Sodium [Synthroid] 150 mcg PO DAILY 05/08/19 12/29/20 History Spironolactone 50 mg PO DAILY #90 tablet 05/12/19 12/29/20 Rx Albuterol Inhaler [Ventolin Hfa 2 puff INHALATION RT-QID PRN 12/29/20 12/29/20 History Inhaler] Cholecalciferol (Vitamin D3) 125 mcg PO DAILY 12/29/20 12/29/20 History [Vitamin D3 (5000 Iu)] Loperamide HCl [Imodium A-D] 2 - 4 mg PO QID PRN 12/29/20 12/29/20 History Multivitamins, Thera [Multivitamin 1 tab PO DAILY 12/29/20 12/29/20 History (formulary)] Ondansetron Odt [Zofran Odt] 4 mg PO DAILY PRN 12/29/20 12/29/20 History PARoxetine [Paxil] 20 mg PO DAILY 12/29/20 12/29/20 History Triamcinolone Acetonide [Nasacort] 2 spray EA NOSTRIL HS 12/29/20 12/29/20 History Allergies Allergy/AdvReac Type Severity Reaction Status Date / Time codeine Allergy "couldn't Verified 12/29/20 23:28 breathe" hydroxyzine HCl Allergy Unknown Verified 12/29/20 23:28 [From Vistaril] hydroxyzine pamoate Allergy Hallucinati Verified 12/29/20 23:28 [From Vistaril] ons Iodinated Contrast Media Allergy Anaphylaxis Verified 12/29/20 23:28 [Iodinated Contrast Media - IV Dye] metoclopramide HCl Allergy "couldn't Verified 12/29/20 23:28 [From Reglan] breathe" Penicillins Allergy Rash/Hives Verified 12/29/20 23:28 ranitidine [From Zantac] Allergy Rash/Hives Verified 12/29/20 23:28 sulfamethoxazole Allergy Rash/Hives Verified 12/29/20 23:28 [From Bactrim] tree nut Allergy Anaphylaxis Verified 12/29/20 23:28 trimethoprim [From Bactrim] Allergy Unknown Verified 12/29/20 23:28 eluxadoline [From Viberzi] AdvReac Intermediate Chest Pain Verified 12/29/20 23:28 hydralazine AdvReac Hallucinati Verified 12/29/20 23:28 ons Physical Exam Vitals: Vital Signs Temp Pulse Resp BP Pulse Ox 12/30/20 00:45 99.3 F 88 20 129/63 96 12/29/20 23:00 98.0 F 76 20 121/59 93 L 12/29/20 21:51 97.9 F 87 20 128/65 97 Intake and Output 12/29/20 12/29/20 12/30/20 14:59 22:59 06:59 Other: Weight 76.204 kg General: non toxic, no distress, appears at stated age, obese Derm: no unusual rashes/lesions no unusual ecchymoses, warm, dry Head: atraumatic, normocephalic, symmetric Eyes: EOMI, no lid lag, anicteric sclera, pupils equal round reactive to light ENT: Nose and ears atraumatic, no thrush, no pharyngeal erythema Neck: No thyromegaly, no cervical lymphadenopathy, trachea midline, supple Mouth: no lip lesion, mucus membranes moist Cardiovascular: S1S2 reg, no murmur, positive posterior tibial pulse bilateral, no edema, capillary refill less than 2 seconds Lungs: CTA bilateral, no rhonchi, no rales , no accessory muscle use Abdominal: soft, nontender to palpation, no guarding, no appreciable organomegaly, normal bowel sounds Ext: no gross muscle atrophy, muscle strength 5 out of 5 in all 4 extremities grossly, no contractures, Neuro: CN II-XI grossly intact, light touch intact all 4 extremities, finger to nose within normal limits, Psych: Alert, oriented, appropriate affect Results CBC & Chem 7: 12/29/20 23:00 12/29/20 23:00 Labs: Abnormal Lab Results - Last 24 Hours (Table) 12/29/20 12/29/20 Range/Units 23:00 23:00 APTT 33.4 H (22.0-30.0) sec Sodium 130 L (137-145) mmol/L Carbon Dioxide 19 L (22-30) mmol/L Glucose 127 H (74-99) mg/dL AST 133 H (14-36) U/L ALT 70 H (4-34) U/L Lactate Dehydrogenase 955 H (313-618) U/L C-Reactive Protein 51.6 H (<10.0) mg/L Assessment and Plan Plan: COVID-19 with Pneumonitis and GI manifestations -C/w IVFs -Monitor electrolytes -Pulm consult -Monitor inflammatoy markers Hyponatremia, likely secondary to poor oral intake -Monitor for now Abnormal LFTs -Likely secondary to ongoing illness -Monitor for now DVT prophylaxis -Lovenox The patient is admitted with an anticipated greater than 2 midnight stay for evaluation of COVID CODE STATUS: Full Code Discussed with: Patient Anticipated discharge date: 2-[address]: Home A total of 35 minutes was spent on the care of this complex patient more than 50% of the time was spent in counseling and care coordination.
[2020-12-30] MEDS ORDERED: PANTOPRAZOLE 40 MG/10 ML VIAL IV SCH (09:00)
[2020-12-30 09:36] LABS: Ferritin 403.3 ng/mL (10.0-291.0)
[2020-12-30 11:24] LABS: African American GFR (CKD) 56.1 (60.0-200.0); Anion Gap 5.1 mmol/L (4.00-12.00); BUN/Creat Ratio 16.36 Ratio (12.00-20.00); Calcium 8.3 mg/dL (8.7-10.3); Carbon Dioxide 24.9 mmol/L (21.6-31.8); Magnesium 2.1 mg/dL (1.5-2.4); Non-African American GFR(CKD) 48.4 (60.0-200.0); Potassium 4.2 mmol/L (3.5-5.5)
--- NOTE | 2020-12-30 12:34 | P.CNPUL ---
History of Present Illness Consult date: 12/30/20 Reason for consult: hypoxemia History of present illness: 75-year-old here patient was admitted to the hospital because of COVID 19 complications. The patient came into the emergency department the as the patient was having nausea and emesis. She initially started having the symptoms around 7 days ago when she was diagnosed with COVID 19 and she felt patient is well until about 2 days ago she started having when she started having nausea and emesis and she end up having some lower back pain and flank pain and she was having nonbloody diarrhea. At that point she decided to come in to the hospital knowing that she was also having diffuse body aches. No fever. No chills. No cough. No sputum production. No chest pain. Pulse ox on room air is around 91% and she is currently on 2 L about 2 by nasal cannula and her pulse ox is up to 98-99%. Chest x-ray showing faint interstitial pulmonary infiltrates. LDH level was 955 with a CRP of 51.6. Sodium level was 1:30 and the sodium level improved up to 135 after being given IV fluids. Review of Systems Constitutional: Reports fatigue, Reports weakness Eyes: denies as per HPI, denies blurred vision, denies bulging eye, denies decreased vision, denies diplopia, denies discharge, denies dry eye, denies irritation, denies itching, denies pain, denies photophobia, denies loss of peripheral vision, denies loss of vision, denies tunnel vision/blind spots Ears: deny: decreased hearing, ear discharge, earache, tinnitus Ears, nose, mouth and throat: Reports as per HPI Breasts: absent: as per HPI, change in shape, gynecomastia, masses, nipple discharge, pain, skin changes, swelling Cardiovascular: Reports as per HPI Respiratory: Reports as per HPI Gastrointestinal: Reports as per HPI, Reports nausea, Reports vomiting Genitourinary: Reports as per HPI Menstruation: Reports as per HPI Musculoskeletal: Reports as per HPI Musculoskeletal: absent: ankle pain, ankle stiffness, ankle swelling Integumentary: Reports as per HPI Neurological: Reports change in smell/taste, Reports weakness Psychiatric: Reports as per HPI Endocrine: Reports as per HPI Past Medical History Past Medical History: Atrial Fibrillation, Coronary Artery Disease (CAD), Cancer, Fibromyalgia, GERD/Reflux, Hyperlipidemia, Hypertension, Osteoarthritis (OA), Sleep Apnea/CPAP/BIPAP, Thyroid Disorder Additional Past Medical History / Comment(s): Hx. chronic lymphocytic leukemia, ANEMIA, brucellosis, hiatal hernia, hx IBS, hx diverticulitis, uses CPAP, see Dr Nolen H & P History of Any Multi-Drug Resistant Organisms: None Reported Past Surgical History: Appendectomy, Back Surgery, Bowel Resection, Cholecystectomy, Heart Catheterization With Stent, Hysterectomy, Joint Re placement Additional Past Surgical History / Comment(s): JES HIP replacement, JES KNEE REPLACEMENTS. CERVICAL FUSION. hx of epidurals for back pain Past Anesthesia/Blood Transfusion Reactions: Motion Sickness Additional Past Anesthesia/Blood Transfusion Reaction / Comment(s): . Date of Last Stent Placement:: 2012 Past Psychological History: No Psychological Hx Reported Smoking Status: Never smoker Past Alcohol Use History: None Reported Past Drug Use History: None Reported - Past Family History Brother(s) Family Medical History: Cancer Mother Family Medical History: Cancer Medications and Allergies Home Medications Medication Instructions Recorded Confirmed Type Pantoprazole Sodium 40 mg PO DAILY 06/17/15 12/29/20 History atenoloL [Atenolol] 12.5 mg PO DAILY 06/17/15 12/29/20 History Aspirin [Adult Low Dose Aspirin EC] 81 mg PO DAILY 06/15/17 12/29/20 History amLODIPine [Norvasc] 5 mg PO DAILY 06/15/17 12/29/20 History Rivaroxaban [Xarelto] 20 mg PO DAILY 04/21/18 12/29/20 History Ezetimibe [Zetia] 10 mg PO DAILY 12/09/18 12/29/20 History Levothyroxine Sodium [Synthroid] 150 mcg PO DAILY 05/08/19 12/29/20 History Spironolactone 50 mg PO DAILY #90 tablet 05/12/19 12/29/20 Rx Albuterol Inhaler [Ventolin Hfa 2 puff INHALATION RT-QID PRN 12/29/20 12/29/20 History Inhaler] Cholecalciferol (Vitamin D3) 125 mcg PO DAILY 12/29/20 12/29/20 History [Vitamin D3 (5000 Iu)] Loperamide HCl [Imodium A-D] 2 - 4 mg PO QID PRN 12/29/20 12/29/20 History Multivitamins, Thera [Multivitamin 1 tab PO DAILY 12/29/20 12/29/20 History (formulary)] Ondansetron Odt [Zofran Odt] 4 mg PO DAILY PRN 12/29/20 12/29/20 History PARoxetine [Paxil] 20 mg PO DAILY 12/29/20 12/29/20 History Triamcinolone Acetonide [Nasacort] 2 spray EA NOSTRIL HS 12/29/20 12/29/20 History Allergies Allergy/AdvReac Type Severity Reaction Status Date / Time codeine Allergy "couldn't Verified 12/29/20 23:28 breathe" hydroxyzine HCl Allergy Unknown Verified 12/29/20 23:28 [From Vistaril] hydroxyzine pamoate Allergy Hallucinati Verified 12/29/20 23:28 [From Vistaril] ons Iodinated Contrast Media Allergy Anaphylaxis Verified 12/29/20 23:28 [Iodinated Contrast Media - IV Dye] metoclopramide HCl Allergy "couldn't Verified 12/29/20 23:28 [From Reglan] breathe" Penicillins Allergy Rash/Hives Verified 12/29/20 23:28 ranitidine [From Zantac] Allergy Rash/Hives Verified 12/29/20 23:28 sulfamethoxazole Allergy Rash/Hives Verified 12/29/20 23:28 [From Bactrim] tree nut Allergy Anaphylaxis Verified 12/29/20 23:28 trimethoprim [From Bactrim] Allergy Unknown Verified 12/29/20 23:28 eluxadoline [From Viberzi] AdvReac Intermediate Chest Pain Verified 12/29/20 23:28 hydralazine AdvReac Hallucinati Verified 12/29/20 23:28 ons Physical Exam Vitals: Vital Signs Temp Pulse Pulse Resp BP BP Pulse Ox 12/30/20 11:44 98.8 F 79 16 110/64 99 12/30/20 06:12 98.2 F 79 16 120/67 95 12/30/20 02:05 98.5 F 74 16 112/68 95 12/30/20 00:45 99.3 F 88 20 129/63 96 12/29/20 23:00 98.0 F 76 20 121/59 93 L 12/29/20 21:51 97.9 F 87 20 128/65 97 Intake and Output 12/29/20 12/30/20 12/30/20 22:59 06:59 14:59 Other: # Voids 1 Weight 76.204 kg 76.204 kg The patient appeared well nourished and normally developed. Vital signs as documented. Head exam is unremarkable. No scleral icterus or corneal arcus noted. Neck is without jugular venous distension, thyromegaly, or carotid bruits. Carotid upstrokes are brisk bilaterally. Lungs are clear to auscultation and percussion. . There was probably some minimal crackles in the lung bases. Cardiac exam reveals the PMI to be normally sized and situated. Rhythm is regular. First and second heart sounds normal. There is a systolic ejection murmur grade 2/6 heard over the precordium main and left lateral sternal border., rubs or gallops. Abdominal exam reveals normal bowel sounds, no masses, no organomegaly and no aortic enlargement. Extremities are nonedematous and both femoral and pedal pulses are normal.Examination of the skin revealed no evidence of significant rashes, suspicious appearing nevi or other concerning lesions.Neurologically, the patient is awake and alert and the patient does not have any focal neurological deficit. Cranial nerves are essentially intact. Results - Laboratory Findings CBC and BMP: 12/29/20 23:00 12/30/20 06:07 PT/INR, D-dimer PT 11.1 sec (9.0-12.0) 12/29/20 23:00 INR 1.1 (<1.2) 12/29/20 23:00 D-Dimer <0.17 mg/L FEU (<0.60) 12/29/20 23:00 Abnormal lab findings: Abnormal Labs 12/29/20 12/29/20 12/30/20 23:00 23:00 06:07 APTT 33.4 H Sodium 130 L Carbon Dioxide 19 L Est GFR (CKD-EPI)AfAm 56.1 L Est GFR (CKD-EPI)NonAf 48.4 L Glucose 127 H Calcium 8.3 L Ferritin 403.3 H AST 133 H ALT 70 H Lactate Dehydrogenase 955 H C-Reactive Protein 51.6 H - Diagnostic Findings Chest x-ray: image reviewed Assessment and Plan Plan: 1 acute COVID 19 infection with mild pneumonitis and gastroenteritis manifesting as nausea and emesis and diarrhea. The patient had some mild hypoxemia with a pulse ox of 91% on room air oxygen and the patient has faint interstitial infiltrates bilaterally. Inflammatory markers are slightly elevated. The patient would benefit from Decadron 6 mg by mouth daily and she will be also benefiting from Remdesivir to shorten the course of her treatment 2 paroxysmal atrial fibrillation the patient is demented on long-term medical condition with Xarelto 3 coronary artery disease 4 chronic obstructive leukemia 5 hypertension 6 hyperlipidemia 7 osteoarthritis 8 hiatal hernia 9 IBS 10 history of diverticulosis 11 obstructive sleep apnea not using CPAP on outpatient basis. The patient has her previous sleep study done in 2011. Her baseline AHI was 17. She received CPAP therapy and she was utilizing an APAP at a minimum pressure of 6 cm of pressure of 9. She developed subsequently ear pain and her compliance he went down. She was unable to tolerate the increased pressure sensation in the middle ears and at that point her treatment was held. Subsequently, a repeat home sleep study was done and the patient was treated and AHI of 1.8 and at that point CPAP was discontinued. Plan IV fluids at 75 mL an hour Decadron 6 mg by mouth daily Remdesivir per protocol Restart Xarelto her home anticoagulant in combination with aspirin Monitor oxygenation Resume home medications We'll follow, keep her on 2 L of oxygen by nasal cannula for now.
[2020-12-30] MEDS ORDERED: REMDESIVIR 200 MG in SODIUM CHLORIDE 0.9% 250 ML IVPB ONE (13:00)
[2020-12-30] MEDS: dexAMETHasone 2 MG TAB PO SCH (13:53)
--- NOTE | 2020-12-30 13:54 | P.PN ---
Subjective Progress Note Date: 12/30/20 Principal diagnosis: sob Doing well, feeling better. No diarrhea since admission. Breathing ok. No chest pain. Still having a cough. No fevers. Objective - Vital Signs Vital signs: Vital Signs Temp 98.8 F 12/30/20 11:44 Pulse 79 12/30/20 11:44 Resp 16 12/30/20 11:44 BP 110/64 12/30/20 11:44 Pulse Ox 99 12/30/20 11:44 Intake & Output 12/29/20 12/30/20 12/30/20 18:59 06:59 18:59 Weight 76.204 kg Other: # Voids 1 - Exam General: non toxic, no distress, appears at stated age, obese Derm: no unusual rashes/lesions no unusual ecchymoses, warm, dry Head: atraumatic, normocephalic, symmetric Eyes: EOMI, no lid lag, anicteric sclera, pupils equal round reactive to light ENT: Nose and ears atraumatic, no thrush, no pharyngeal erythema Neck: No thyromegaly, no cervical lymphadenopathy, trachea midline, supple Mouth: no lip lesion, mucus membranes moist Cardiovascular: S1S2 reg, no murmur, positive posterior tibial pulse bilateral, no edema, capillary refill less than 2 seconds Lungs: CTA bilateral, no rhonchi, no rales , no accessory muscle use Abdominal: soft, nontender to palpation, no guarding, no appreciable organomeg carlie, normal bowel sounds Ext: no gross muscle atrophy, muscle strength 5 out of 5 in all 4 extremities grossly, no contractures, Neuro: CN II-XI grossly intact, light touch intact all 4 extremities, finger to nose within normal limits, Psych: Alert, oriented, appropriate affect - Labs CBC & Chem 7: 12/29/20 23:00 12/30/20 06:07 Labs: Abnormal Lab Results - Last 24 Hours (Table) 12/29/20 12/29/20 12/30/20 Range/Units 23:00 23:00 06:07 APTT 33.4 H (22.0-30.0) sec Sodium 130 L (137-145) mmol/L Carbon Dioxide 19 L (22-30) mmol/L Est GFR (CKD-EPI)AfAm 56.1 L (60.0-200.0) Est GFR (CKD-EPI)NonAf 48.4 L (60.0-200.0) Glucose 127 H (74-99) mg/dL Calcium 8.3 L (8.7-10.3) mg/dL Ferritin 403.3 H (10.0-291.0) ng/mL AST 133 H (14-36) U/L ALT 70 H (4-34) U/L Lactate Dehydrogenase 955 H (313-618) U/L C-Reactive Protein 51.6 H (<10.0) mg/L Assessment and Plan Plan: COVID-19 with Pneumonitis with hypoxia and GI manifestations -Seen by pulm, started on decadron and remdisivir due to hypoxia -C/w IVFs -Monitor electrolytes -Pulm consult -Monitor inflammatoy markers Hyponatremia, likely secondary to poor oral intake -Resolved on IV fluids Abnormal LFTs -Likely secondary to ongoing illness -Recheck in am DVT prophylaxis -Lovenox Discussed with: Patient Anticipated discharge date: [address]: Home A total of 35 minutes was spent on the care of this complex patient more than 50% of the time was spent in counseling and care coordination.
[2020-12-30] MEDS: ALBUTEROL HFA INHALER INHALATION PRN (20:02)
[2020-12-31] MEDS: SODIUM CHLORIDE 0.9% 1,000 ML IV SCH ×2 (03:26→17:26)
[2020-12-31] MEDS: LEVOTHYROXINE 75 MCG TAB PO SCH (05:17)
[2020-12-31] MEDS: MULTIVITAMINS, THERA 1 EACH TAB PO SCH (08:22)
[2020-12-31] MEDS: dexAMETHasone 2 MG TAB PO SCH (08:22)
[2020-12-31] MEDS: SPIRONOLACTONE 25 MG TAB PO SCH (08:22)
[2020-12-31] MEDS: PARoxetine 20 MG TAB PO SCH (08:22)
[2020-12-31] MEDS: CHOLECALCIFEROL 25 MCG (1000 IU) TABLET PO SCH (08:22)
[2020-12-31] MEDS: ASPIRIN 81 MG PO SCH (08:22)
[2020-12-31] MEDS: RIVAROXABAN 20 MG TAB PO SCH (08:22)
[2020-12-31] MEDS: EZETIMIBE 10 MG TAB PO SCH (08:22)
[2020-12-31] MEDS: PANTOPRAZOLE 40 MG TABLET PO SCH (08:22)
[2020-12-31] MEDS: ALBUTEROL HFA INHALER INHALATION PRN ×2 (08:27→16:41)
--- NOTE | 2020-12-31 09:52 | P.PN ---
Subjective Progress Note Date: 12/31/20 75-year-old here patient was admitted to the hospital because of COVID 19 complications. The patient came into the emergency department the as the patient was having nausea and emesis. She initially started having the symptoms around 7 days ago when she was diagnosed with COVID 19 and she felt patient is well until about 2 days ago she started having when she started having nausea and emesis and she end up having some lower back pain and flank pain and she was having nonbloody diarrhea. At that point she decided to come in to the hospital knowing that she was also having diffuse body aches. No fever. No chills. No cough. No sputum production. No chest pain. Pulse ox on room air is around 91% and she is currently on 2 L about 2 by nasal cannula and her pulse ox is up to 98-99%. Chest x-ray showing faint interstitial pulmonary infiltrates. LDH level was 955 with a CRP of 51.6. Sodium level was 1:30 and the sodium level improved up to 135 after being given IV fluids. On 12/31/2020 I'm seeing the patient for a follow-up. She was hospitalized yesterday for Covid 19 related complications. The patient had some mild pneumonia in interstitial infiltrates. She still has a limited cough. She is currently on room air oxygen. The oxygen was causing some dryness in her nose and she took it off. No nausea. No vomiting. No diarrhea. No abdominal pain. No altered mentation. Objective - Vital Signs Vital signs: Vital Signs Temp 98.0 F 12/31/20 00:22 Pulse 87 12/31/20 00:22 Resp 17 12/31/20 00:22 BP 134/73 12/31/20 00:22 Pulse Ox 97 12/31/20 08:28 Intake & Output 12/30/20 12/31/20 12/31/20 18:59 06:59 18:59 Other: Voiding Method Bedside Commode # Voids 3 4 - Exam The patient appeared well nourished and normally developed. Vital signs as documented. Head exam is unremarkable. No scleral icterus or corneal arcus noted. Neck is without jugular venous distension, thyromegaly, or carotid bruits. Carotid upstrokes are brisk bilaterally. Lungs are clear to auscultation and percussion. . There was probably some minimal crackles in the lung bases. Cardiac exam reveals the PMI to be normally sized and situated. Rhythm is regular. First and second heart sounds normal. There is a systolic ejection murmur grade 2/6 heard over the precordium main and left lateral sternal border., rubs or gallops. Abdominal exam reveals normal bowel sounds, no masses, no organomegaly and no aortic enlargement. Extremities are nonedematous and both femoral and pedal pulses are normal.Examination of the skin revealed no evidence of significant rashes, suspicious appearing nevi or other concerning lesions.Neurologically, the patient is awake and alert and the patient does not have any focal neurological deficit. Cranial nerves are essentially intact. - Labs CBC & Chem 7: 12/29/20 23:00 12/30/20 06:07 Labs: Abnormal Lab Results - Last 24 Hours (Table) 12/30/20 Range/Units 06:07 Est GFR (CKD-EPI)AfAm 56.1 L (60.0-200.0) Est GFR (CKD-EPI)NonAf 48.4 L (60.0-200.0) Calcium 8.3 L (8.7-10.3) mg/dL Microbiology - Last 24 Hours (Table) 12/29/20 23:00 Blood Culture - Preliminary Blood No Growth after 24 hours 12/29/20 22:45 Blood Culture - Preliminary Blood No Growth after 24 hours Assessment and Plan Plan: 1 acute COVID 19 infection with mild pneumonitis and gastroenteritis manifesting as nausea and emesis and diarrhea. The patient had some mild hypoxemia with a pulse ox of 91% on room air oxygen and the patient has faint interstitial in filtrates bilaterally. Inflammatory markers are slightly elevated. The patient would benefit from Decadron 6 mg by mouth daily and Remdesivir to shorten the course of her treatment. Clinically slightly improved compared to yesterday. No active gastrointestinal symptoms. Currently on room air oxygen. Still having some limited cough. 2 paroxysmal atrial fibrillation the patient is demented on long-term medical condition with Xarelto 3 coronary artery disease 4 chronic obstructive leukemia 5 hypertension 6 hyperlipidemia 7 osteoarthritis 8 hiatal hernia 9 IBS 10 history of diverticulosis 11 obstructive sleep apnea not using CPAP on outpatient basis. The patient has her previous sleep study done in 2011. Her baseline AHI was 17. She received CPAP therapy and she was utilizing an APAP at a minimum pressure of 6 cm of pressure of 9. She developed subsequently ear pain and her compliance he went down. She was unable to tolerate the increased pressure sensation in the middle ears and at that point her treatment was held. Subsequently, a repeat home sleep study was done and the patient was treated and AHI of 1.8 and at that point CPAP was discontinued. Plan IV fluids at 75 mL an hour Decadron 6 mg by mouth daily Remdesivir per protocol, and the patient has a day#2 Restart Xarelto her home anticoagulant in combination with aspirin Monitor oxygenation home medications resumed We'll follow,
[2020-12-31] MEDS: REMDESIVIR 100 MG in SODIUM CHLORIDE 0.9% 250 ML IVPB SCH (14:28)
--- NOTE | 2020-12-31 18:05 | P.PN ---
Subjective Progress Note Date: 12/31/20 ([facility] charting seen at 1130) Principal diagnosis: nausea and vomiting Patient is a 75-year-old female with history of A. fib, fibromyalgia, GERD, hypertension, dyslipidemia, and chronic lymphocytic leukemia who presented today ER after recent diagnosis of Covid 19 with intractable nausea, vomiting, and diarrhea. In the ER she underwent an extensive evaluation. Initial vital signs were within normal limits. Initial laboratory analysis showed a sodium of 130, carbon dioxide 19, ferritin 403, AST 133, ALT 70, LDH 955, and CRP of 51.6. Chest x-ray showed increased interstitial pulmonary edema compared old exam. She was admitted for intractable nausea vomiting and diarrhea associated with Covid gastroenteritis. Pulmonary was consulted. She was started on Remdesivir, and Decadron. By the morning of 12/31 her symptoms had improved. Patient seen and examined at bedside. She denies any chest pain, shortness breath, nausea, vomiting, or diarrhea. She still feeling somewhat weak but much improved. General: non toxic, no distress, appears at stated age Derm: warm, dry Head: atraumatic, normocephalic, symmetric Eyes: EOMI, no lid lag, anicteric sclera Mouth: no lip lesion, mucus membranes moist Cardiovascular: S1S2 reg, no murmur, positive posterior tibial pulse bilateral, Lungs: CTA bilateral, no rhonchi, no rales , no accessory muscle use Abdominal: soft, nontender to palpation, no guarding, no appreciable organomegaly Ext: no gross muscle atrophy, no edema, no contractures Neuro: CN II-XI grossly intact, no focal neuro deficits Psych: Alert, oriented, appropriate affect Gastroenteritis Pneumonitis Covid 19 -Pulmonary conditions appreciated -Continue with Remdesivir Decadron, Vit C, Vit D, and zinc - repeat labs in AM Paroxysmal atrial fibrillation - Xarelto - atenolol - follow HR Transaminitis - due to above - repeat in AM Chronic: Coronary artery disease Fibromyalgia GERD Dyslipidemia Hypertension Osteoarthritis Chronic lymphocytic leukemia IBS DVT prophylaxis: Xarelto Discussed with: patient, nursing Anticipated discharge: in AM Anticipated discharge place: home A total of 35 minutes was spent on the care of this complex patient more than 50% of the time was spent in counseling and care coordination. Objective - Vital Signs Vital signs: Vital Signs Temp 98.2 F 12/31/20 14:00 Pulse 90 12/31/20 14:00 Resp 16 12/31/20 14:00 BP 110/63 12/31/20 14:00 Pulse Ox 95 12/31/20 14:00 Intake & Output 12/30/20 12/31/20 12/31/20 18:59 06:59 18:59 Other: Voiding Method Bedside Commode Bedside Commode # Voids 3 4 - Labs CBC & Chem 7: 12/29/20 23:00 12/30/20 06:07 Labs: Microbiology - Last 24 Hours (Table) 12/29/20 23:00 Blood Culture - Preliminary Blood No Growth after 24 hours 12/29/20 22:45 Blood Culture - Preliminary Blood No Growth after 24 hours
[2021-01-01] MEDS: LEVOTHYROXINE 75 MCG TAB PO SCH (05:21)
[2021-01-01] MEDS: SODIUM CHLORIDE 0.9% 1,000 ML IV SCH (05:21)
[2021-01-01] MEDS: ASPIRIN 81 MG PO SCH (08:33)
[2021-01-01] MEDS: PARoxetine 20 MG TAB PO SCH (08:33)
[2021-01-01] MEDS: SPIRONOLACTONE 25 MG TAB PO SCH (08:33)
[2021-01-01] MEDS: EZETIMIBE 10 MG TAB PO SCH (08:33)
[2021-01-01] MEDS: MULTIVITAMINS, THERA 1 EACH TAB PO SCH (08:33)
[2021-01-01] MEDS: PANTOPRAZOLE 40 MG TABLET PO SCH (08:33)
[2021-01-01] MEDS: dexAMETHasone 2 MG TAB PO SCH (08:34)
[2021-01-01] MEDS: RIVAROXABAN 20 MG TAB PO SCH (08:34)
[2021-01-01] MEDS: CHOLECALCIFEROL 25 MCG (1000 IU) TABLET PO SCH (08:34)
[2021-01-01] MEDS: REMDESIVIR 100 MG in SODIUM CHLORIDE 0.9% 250 ML IVPB SCH (10:20)
--- NOTE | 2021-01-01 10:23 | P.PN ---
Subjective Progress Note Date: 01/01/21 Principal diagnosis: CoVID 19 infection 75-year-old here patient was admitted to the hospital because of COVID 19 complications. The patient came into the emergency department the as the patient was having nausea and emesis. She initially started having the symptoms around 7 days ago when she was diagnosed with COVID 19 and she felt patient is well until about 2 days ago she started having when she started having nausea and emesis and she end up having some lower back pain and flank pain and she was having nonbloody diarrhea. At that point she decided to come in to the hospital knowing that she was also having diffuse body aches. No fever. No chills. No cough. No sputum production. No chest pain. Pulse ox on room air is around 91% and she is currently on 2 L about 2 by nasal cannula and her pulse ox is up to 98-99%. Chest x-ray showing faint interstitial pulmonary infiltrates. LDH level was 955 with a CRP of 51.6. Sodium level was 1:30 and the sodium level improved up to 135 after being given IV fluids. On 12/31/2020 I'm seeing the patient for a follow-up. She was hospitalized yesterday for Covid 19 related complications. The patient had some mild pneumonia in interstitial infiltrates. She still has a limited cough. She is currently on room air oxygen. The oxygen was causing some dryness in her nose and she took it off. No nausea. No vomiting. No diarrhea. No abdominal pain. No altered mentation. The patient is seen today 01/01/2021 and follow-up on the regular medical floor. She is currently awake and alert in no acute distress. Resting quite comfortably in bed. No shortness of breath, cough or congestion. Maintaining O2 saturations in the mid 90s on room air. She's been afebrile. Hemodynamically stable. No nausea, vomiting diarrhea. Feeling nearly back to her baseline. Blood culture revealed no growth. D-dimer less than 0.17. Remains on Decadron, vitamin supplements. Day #3 of Remdesivir. Anticoagulated with Xarelto. Objective - Vital Signs Vital signs: Vital Signs Temp 97.7 F 01/01/21 02:50 Pulse 69 01/01/21 02:50 Resp 15 01/01/21 02:50 BP 101/50 01/01/21 02:50 Pulse Ox 97 01/01/21 02:50 Intake & Output 12/31/20 01/01/21 01/01/21 18:59 06:59 18:59 Intake Total 550 Balance 550 Intake: Intake, IV Titration 550 Amount Remdesivir 100 mg In 250 Sodium Chloride 0.9% 250 ml @ 250 mls/hr IVPB Q24H ELPIDIO Rx#:[id number] Sodium Chloride 0.9% 1, 300 000 ml @ 75 mls/hr IV . [id number] ELPIDIO Rx#:[id number] Other: Voiding Method Bedside Commode # Voids 2 # Bowel Movements 1 - Exam GENERAL EXAM: Alert, active, pleasant 75-year-old female patient, on room air, comfortable in no apparent distress. HEAD: Normocephalic. EYES: Normal reaction of pupils, equal size. NOSE: Clear with pink turbinates. THROAT: No erythema or exudates. NECK: No masses, no JVD. CHEST: No chest wall deformity. LUNGS: Equal air entry with no crackles, wheeze, rhonchi or dullness. CVS: S1 and S2 normal with no audible murmur, regular rhythm. ABDOMEN: No hepatosplenomegaly, normal bowel sounds, no guarding or rigidity. SPINE: No scoliosis or deformity SKIN: No rashes CENTRAL NERVOUS SYSTEM: No focal deficits, tone is normal in all 4 extremities. EXTREMITIES: There is no peripheral edema. No clubbing, no cyanosis. Peripheral pulses are intact. - Labs CBC & Chem 7: 12/29/20 23:00 12/30/20 06:07 Labs: Microbiology - Last 24 Hours (Table) 12/29/20 23:00 Blood Culture - Preliminary Blood No Growth after 48 hours 12/29/20 22:45 Blood Culture - Preliminary Blood No Growth after 48 hours Assessment and Plan Assessment: 1 acute COVID 19 infection with mild pneumonitis and gastroenteritis manifesting as nausea and emesis and diarrhea. The patient had some mild hypoxemia with a pulse ox of 91% on room air oxygen and the patient has faint interstitial infiltrates bilaterally. Inflammatory markers are slightly elevated. Maintaining O2 saturations in the 90s on room air. Day #3 of Remdesivir. On Decadron. 2 paroxysmal atrial fibrillation the patient is demented on long-term medical condition with Xarelto 3 coronary artery disease 4 chronic obstructive leukemia 5 hypertension 6 hyperlipidemia 7 osteoarthritis 8 hiatal hernia 9 IBS 10 history of diverticulosis 11 obstructive sleep apnea not using CPAP on outpatient basis. The patient has her previous sleep study done in 2012. Her baseline AHI was 17. She received CPAP therapy and she was utilizing an APAP at a minimum pressure of 6 cm of pressure of 9. She developed subsequently ear pain and her compliance he went down. She was unable to tolerate the increased pressure sensation in the middle ears and at that point her treatment was held. Subsequently, a repeat home sleep study was done and the patient was treated and AHI of 1.8 and at that point CPAP was discontinued. Plan: The patient was seen and evaluated by Dr. Ulloa Currently stable from the pulmonary standpoint Day #3 of Remdesivir Remains on Decadron and vitamin supplements Anticoagulated with Xarelto I, the cosigning physician, performed a history & physical examination of the patient. Lungs sounds are clear. Maintaining good O2 saturations in the 90s on room air. I discussed the assessment and plan of care with my nurse practitioner, Soledad Ritchie. I attest to the above note as dictated by her.
[2021-01-01 10:27] VITALS: BP 117/62; PULSE 67; RESP 18; TEMP 98.5
[2021-01-01 10:36] LABS: Basophils # (A) 0 X 10*3/uL (0.00-0.10); Basophils % (A) 0 %; Eosinophils # (A) 0 X 10*3/uL (0.04-0.35); Eosinophils % (A) 0 %; HCT 40.1 % (37.2-46.3); HGB 13.6 g/dL (12.0-15.0); Lymphocytes # (A) 1.76 X 10*3/uL (0.90-5.00); Lymphocytes % (A) 36.4 %; MCH 30.7 pg (27.0-32.0); MCHC 33.9 g/dL (32.0-37.0); MCV 90.5 fL (80.0-97.0); Mean Platelet Volume 10.3 fL (9.5-12.2); Monocytes # (A) 0.62 X 10*3/uL (0.20-1.00); Monocytes % (A) 12.8 %; Neutrophils # (A) 2.43 X 10*3/uL (1.80-7.70); Neutrophils % (A) 50.4 %; Platelet Count 242 X 10*3/uL (140-440); RBC 4.43 X 10*6/uL (4.10-5.20); RDW 12.1 % (11.5-14.5); WBC 4.83 X 10*3/uL (4.50-10.00)
[2021-01-01 10:51] LABS: African American GFR (CKD) 82.4 (60.0-200.0); Albumin 3.6 g/dL (3.80-4.90); Albumin/Globulin Ratio 1.44 (1.60-3.17); Anion Gap 7.5 mmol/L (4.00-12.00); BUN/Creat Ratio 33.75 Ratio (12.00-20.00); C Reactive Protein 1.7 mg/dL (0.0-0.8); Calcium 8.8 mg/dL (8.7-10.3); Carbon Dioxide 21.5 mmol/L (21.6-31.8); Globulin 2.5 g/dL (1.6-3.3); Non-African American GFR(CKD) 71.1 (60.0-200.0); Potassium 4.8 mmol/L (3.5-5.5); Total Bilirubin 0.3 mg/dL (0.3-1.2); Total Protein 6.1 g/dL (6.2-8.2)
--- NOTE | 2021-01-02 06:50 | P.DS ---
Providers Date of admission: 12/30/20 00:58 Expected date of discharge: 01/01/21 Attending physician: Evan Jones MD Consults: 12/30/20 01:09 Consult Physician Stat Consulting Provider: Stephen Holt Reason/Comments: covid-19, weakness, hypoxemia Do you want consulting provider notified?: Yes Primary care physician: [facility] Hospital Course: Discharge Diagnosis: Pneumonitis and gastroenteritis secondary to COVID-19 infection Paroxysmal A. fib Transaminitis due to infection Coronary artery disease Fibromyalgia GERD Dyslipidemia Hypertension Osteoarthritis Chronic lymphocytic leukemia [facility] Hospital Course: Patient is a 75-year-old female with history of A. fib, fibromyalgia, GERD, hypertension, dyslipidemia, and chronic lymphocytic leukemia who presented today ER after recent diagnosis of Covid 19 with intractable nausea, vomiting, and diarrhea. In the ER she underwent an extensive evaluation. Initial vital signs were within normal limits. Initial laboratory analysis showed a sodium of 130, carbon dioxide 19, ferritin 403, AST 133, ALT 70, LDH 955, and CRP of 51.6. Chest x-ray showed increased interstitial pulmonary edema compared old exam. She was admitted for intractable nausea vomiting and diarrhea associated with Covid gastroenteritis. Pulmonary was consulted. She was started on Remdesivir, and Decadron. By the morning of 12/31 her symptoms had improved. She recevied on additional dose of remdesivir and was determined stable for discharge on 01/01. She will complete 10 days of dexamethasone. Patient seen and examined at bedside on 01/01 at 930. Denies chest pain, SOB, no diarrhea now no BM in 2 days. No nasuea and feels well enough to go home. Vital signs reviewed and stable. General: non toxic, no distress, appears at stated age Derm: warm, dry Head: atraumatic, normocephalic, symmetric Eyes: EOMI, no lid lag, anicteric sclera Mouth: no lip lesion, mucus membranes moist Cardiovascular: S1S2 reg, no murmur, positive posterior tibial pulse bilateral, Lungs: CTA bilateral, no rhonchi, no rales , no accessory muscle use Abdominal: soft, nontender to palpation, no guarding, no appreciable organomegaly Ext: no gross muscle atrophy, no edema, no contractures Neuro: CN II-XI grossly intact, no focal neuro deficits Psych: Alert, oriented, appropriate affect A total of 32 minutes of time were spent preparing this complex discharge summary . Patient Condition at Discharge: Fair Plan - Discharge Summary Discharge Rx Participant: No New Discharge Prescriptions: New dexAMETHasone [Hexadrol] 6 mg PO DAILY #21 tab Continue Pantoprazole Sodium 40 mg PO DAILY atenoloL [Atenolol] 12.5 mg PO DAILY Aspirin [Adult Low Dose Aspirin EC] 81 mg PO DAILY Rivaroxaban [Xarelto] 20 mg PO DAILY Ezetimibe [Zetia] 10 mg PO DAILY Levothyroxine Sodium [Synthroid] 150 mcg PO DAILY Spironolactone 50 mg PO DAILY #90 tablet Triamcinolone Acetonide [Nasacort] 2 spray EA NOSTRIL HS Albuterol Inhaler [Ventolin Hfa Inhaler] 2 puff INHALATION RT-QID PRN PRN Reason: Shortness Of Breath Multivitamins, Thera [Multivitamin (formulary)] 1 tab PO DAILY Loperamide HCl [Imodium A-D] 2 - 4 mg PO QID PRN PRN Reason: Diarrhea Cholecalciferol (Vitamin D3) [Vitamin D3 (5000 Iu)] 125 mcg PO DAILY PARoxetine [Paxil] 20 mg PO DAILY Changed Ondansetron Odt [Zofran ODT] 4 mg PO TID PRN #30 tab PRN Reason: Nausea Discontinued amLODIPine [Norvasc] 5 mg PO DAILY Discharge Medication List Pantoprazole Sodium 40 mg PO DAILY 06/17/15 [History] atenoloL [Atenolol] 12.5 mg PO DAILY 06/17/15 [History] Aspirin [Adult Low Dose Aspirin EC] 81 mg PO DAILY 06/15/17 [History] Rivaroxaban [Xarelto] 20 mg PO DAILY 04/21/18 [History] Ezetimibe [Zetia] 10 mg PO DAILY 12/09/18 [History] Levothyroxine Sodium [Synthroid] 150 mcg PO DAILY 05/08/19 [History] Spironolactone 50 mg PO DAILY #90 tablet 05/12/19 [Rx] Albuterol Inhaler [Ventolin Hfa Inhaler] 2 puff INHALATION RT-QID PRN 12/29/20 [History] Cholecalciferol (Vitamin D3) [Vitamin D3 (5000 Iu)] 125 mcg PO DAILY 12/29/20 [History] Loperamide HCl [Imodium A-D] 2 - 4 mg PO QID PRN 12/29/20 [History] Multivitamins, Thera [Multivitamin (formulary)] 1 tab PO DAILY 12/29/20 [History] PARoxetine [Paxil] 20 mg PO DAILY 12/29/20 [History] Triamcinolone Acetonide [Nasacort] 2 spray EA NOSTRIL HS 12/29/20 [History] Ondansetron Odt [Zofran ODT] 4 mg PO TID PRN #30 tab 01/01/21 [Rx] dexAMETHasone [Hexadrol] 6 mg PO DAILY #21 tab 01/01/21 [Rx] Follow up Appointment(s)/Referral(s): Huma Jarquin DO [Primary Care Provider] - 01/06/21 11:00 am (This will be a telephone visit. Office will call you at time of appointment. Thank you.) Mati Ulloa MD [STAFF PHYSICIAN] - 01/30/21 10:15 am Patient Instructions/Handouts: Coronavirus Disease 2019 (COVID-19) Activity/Diet/Wound Care/Special Instructions: Activity: as tolerated Diet: heart healthy Discharge Disposition: HOME SELF-CARE
== END 2021-01-01 13:45 | disposition home or self-care (01) | DRG 177 ==
LOC: EC 21:49 → 4SSUR 12-30 00:58
PROVIDERS: ADMIT Internal Medicine; ATTEND Internal Medicine
PROC: XW033E5 Introduction of Remdesivir Anti-infective into Peripheral Vein, Percutaneous Approach, New Technology Group 5 (ICD-10-PCS; principal; 2020-12-30)
DX: U07.1 COVID-19 (principal); J12.82 Pneumonia due to coronavirus disease 2019; J81.1 Chronic pulmonary edema; E87.1 Hypo-osmolality and hyponatremia; A08.39 Other viral enteritis; C91.10 Chronic lymphocytic leukemia of B-cell type not having achieved remission; I48.0 Paroxysmal atrial fibrillation; E78.5 Hyperlipidemia, unspecified; I10 Essential (primary) hypertension; I25.10 Atherosclerotic heart disease of native coronary artery without angina pectoris; K21.9 Gastro-esophageal reflux disease without esophagitis; M19.90 Unspecified osteoarthritis, unspecified site; M79.7 Fibromyalgia; K44.9 Diaphragmatic hernia without obstruction or gangrene; K58.9 Irritable bowel syndrome, unspecified; E66.9 Obesity, unspecified; R94.5 Abnormal results of liver function studies; R09.02 Hypoxemia; G47.33 Obstructive sleep apnea (adult) (pediatric); K57.90 Diverticulosis of intestine, part unspecified, without perforation or abscess without bleeding; R74.01 Elevation of levels of liver transaminase levels; E07.9 Disorder of thyroid, unspecified; Z68.30 Body mass index [BMI] 30.0-30.9, adult; Z79.82 Long term (current) use of aspirin; Z79.899 Other long term (current) drug therapy; Z79.01 Long term (current) use of anticoagulants; Z79.890 Hormone replacement therapy; Z86.19 Personal history of other infectious and parasitic diseases; Z90.49 Acquired absence of other specified parts of digestive tract; Z98.890 Other specified postprocedural states; Z95.5 Presence of coronary angioplasty implant and graft; Z90.710 Acquired absence of both cervix and uterus; Z96.653 Presence of artificial knee joint, bilateral; Z96.643 Presence of artificial hip joint, bilateral; Z98.1 Arthrodesis status; Z88.5 Allergy status to narcotic agent; Z88.0 Allergy status to penicillin; Z88.2 Allergy status to sulfonamides; Z88.8 Allergy status to other drugs, medicaments and biological substances; Z91.041 Radiographic dye allergy status; Z80.9 Family history of malignant neoplasm, unspecified
CPT/HCPCS: 36415; 71045; 80048; 80053; 82728; 83605; 83615; 83735; 84145; 85025; 85379; 85610; 85730; 86140; 87040; 93005; 94640; 94760; 96372; 96374; 99285

== ENCOUNTER 2021-06-04 08:22 | Day surgery (SDC) | payer MEDICARE ==
[~2021-06-04 08:22] MED LIST changes: +ALPRAZolam 0.25 MG TAB PO PRN; +ALPRAZolam 0.5 MG TAB PO PRN; +ASPIRIN 325 MG TAB PO ONE; +ATORVASTATIN 80 MG TAB PO ONE; +HEPARIN SODIUM,PORCINE 10,000 UNIT in SODIUM CHLORIDE 0.9% 1,000 ML IRRIGATION PRN; +HEPARIN SODIUM,PORCINE 2,500 UNIT in SODIUM CHLORIDE 0.9% 250 ML IRRIGATION PRN; +NITROGLYCERIN SL TABS 0.4 MG TAB SUBLINGUAL PRN; -SODIUM CHLORIDE 0.9% 1,000 ML IV SCH; +SODIUM CHLORIDE 0.9% 1,000 ML in EMPTY BAG 1 BAG IV ONE
[2021-06-04] MEDS ORDERED: FAMOTIDINE 20 MG/2 ML VIAL ONE (09:09)
[2021-06-04] MEDS ORDERED: diphenhydrAMINE 50 MG/ML 1 ML VIAL ONE (09:09)
[2021-06-04] MEDS ORDERED: methylPREDNISolone SOD SUCCI 125 MG/2 ML VIAL ONE (09:10)
[2021-06-04] MEDS ORDERED: FAMOTIDINE 20 MG/2 ML VIAL IV ONE (09:17)
[2021-06-04] MEDS ORDERED: diphenhydrAMINE 50 MG/ML 1 ML VIAL IVP STA (09:17)
[2021-06-04] MEDS ORDERED: methylPREDNISolone SOD SUCCI 125 MG/2 ML VIAL IV STA (09:17)
[2021-06-04] MEDS ORDERED: fentaNYL (PF) 50 MCG/ML 2 ML AMP ONE (10:16)
[2021-06-04] MEDS ORDERED: HEPARIN SODIUM 1,000 UN/ML (10ML VL) ONE (10:16)
[2021-06-04] MEDS ORDERED: VERAPAMIL 2.5 MG/ML 2 ML AMP ONE (10:16)
[2021-06-04] MEDS ORDERED: LIDOCAINE 1% INJ 10MG/ML (20 ML MDV) ONE (10:16)
[2021-06-04] MEDS ORDERED: LIDOCAINE 1% INJ 10MG/ML (20 ML MDV) SQ ONE (10:33)
[2021-06-04] MEDS ORDERED: fentaNYL (PF) 50 MCG/ML 2 ML AMP IV ONE (10:34)
[2021-06-04] MEDS ORDERED: VERAPAMIL SYRINGE (5 MG/10 ML) INTRAARTER ONE (10:38)
[2021-06-04] MEDS ORDERED: CLOPIDOGREL 75 MG TAB ONE (10:42)
[2021-06-04] MEDS ORDERED: HEPARIN SODIUM 1,000 UN/ML (10ML VL) IV ONE (10:43)
[2021-06-04] MEDS ORDERED: CLOPIDOGREL 75 MG TAB PO ONE (10:48)
[2021-06-04] MEDS ORDERED: NITROGLYCERIN 1000MCG/10ML SYRINGE INTRACORON ONE (10:58)
[2021-06-04] MEDS ORDERED: IOPAMIDOL-370 125ML BTL INJ ONE (11:05)
[2021-06-04] MEDS ORDERED: ATROPINE SULFATE 0.1 MG/ML 10ML SYRINGE IV PRN (11:11)
[2021-06-04] MEDS ORDERED: MAG HYDROX/AL HYDROX/SIMETH 30 ML CUP PO PRN (11:11)
[2021-06-04] MEDS ORDERED: ZOLPIDEM 5 MG TAB PO PRN (11:11)
[2021-06-04] MEDS ORDERED: RX INFO: IV CONTRAST WAS GIVEN 1 EACH MISC MISCELLANE PRN (11:11)
[2021-06-04] MEDS ORDERED: NITROGLYCERIN SL TABS 0.4 MG TAB SUBLINGUAL PRN (11:11)
[2021-06-04] MEDS ORDERED: SODIUM CHLORIDE 0.9% 1,000 ML IV SCH (11:15)
[2021-06-04 12:54] VITALS: BMI 30.4
--- NOTE | 2021-06-04 14:47 | CC ---
CARDIAC CATHETERIZATION REPORT Mrs Ruiz is a 75-year-old female known history of atrial fibrillation, history of coronary disease, hypertension, hyperlipidemia, diabetes mellitus, who has been complaining of episode of exertional chest discomfort. In view of that, recommendation was made regarding cardiac catheterization. The procedure as well as the risks and the complications were discussed with the patient who is in full understanding and agreement. PROCEDURE: Patient was brought to flue dust laborer in a fasting semi-sedated state after receiving fentanyl and Benadryl and achieving moderate conscious sedated state. Using Xylocaine anesthesia and Seldinger technique, a 6-Guyanese sheath was introduced in the right radial artery. Selective right and left coronary angiography performed using 5-Guyanese, 3 and one half bend, right and left Bob catheter. Multiple views of the coronary artery including hemiaxial views were obtained. The left Bob catheter was used to cross the aortic valve and the ventricular end-diastolic pressure was calculated. Following that, catheter was removed. Images were reviewed. FINDINGS: LEFT MAIN: This is a large-sized vessel, bifurcating into left circumflex, left anterior descending artery, left main coronary artery has no evidence of high-grade stenosis. LEFT ANTERIOR DESCENDING CORONARY ARTERY: This is a large-sized vessel reaching to the apex giving rise to a large diagonal branch proximally. The left anterior descending artery has a 30% to 40% plaque after the diagonal branch takeoff. The diagonal branch has diffuse intimal disease proximally up to 50%. The rest of the vessel has no high- grade stenosis. LEFT CIRCUMFLEX: This is a large nondominant vessel giving rise to 2 obtuse marginal branches. The first obtuse marginal branch stented segment is patent. There is no evidence of any significant in-stent stenosis. Mild plaque was noted. RIGHT CORONARY ARTERY: This is a large dominant vessel bifurcating distally into PDA and posterolateral segment and branches. The right coronary artery in mid segment has a 90% stenosis. The rest of the vessel has mild plaque without any evidence of high- grade stenosis. Left ventriculogram was not performed. HEMODYNAMICS: There was no gradient across the aortic valve. The left ventricle end-diastolic pressure was 18-22 mmHg. CONCLUSION: 1. Critical stenosis involving the mid right coronary artery. 2. Patent stent in the first obtuse marginal branch. 3. Mild to moderate disease in the LAD and the diagonal branch. RECOMMENDATIONS: In view of findings and anatomy, I recommend proceeding with angioplasty and stenting of the right coronary artery. The procedure as well as the risks and the complications were discussed with the patient who is in full understanding and agreement. MMLETICIA / SHIVAN: [id number] /
--- NOTE | 2021-06-04 14:59 | PTCA ---
PERCUTANEOUSTRANS CORORONARY ANGIOGRAPHY Mrs. Ruiz is a 75-year-old female with a known history of coronary artery disease who presented with symptoms of new onset angina pectoris. Underwent cardiac catheterization and was found to have critical stenosis involving the mid right coronary artery. In view of that, recommendation regarding angioplasty and stenting. The procedure as well as the risks and the complications were discussed with the patient who is in full understanding and agreement. PROCEDURE: A 6-[place] FR4 guiding catheter introduced in the system. After cannulating the right coronary ostium, a 0.014 balanced medium weight J-wire was advanced across the lesion, positioned distally. Then a 4.0 x 18 mm Xience [place] stent was deployed and was dilated at 16 atmospheres. After the last inflation, after appropriate wait, the balloon and the guidewire were withdrawn back in the guiding catheter. Images were obtained repeated. Those images revealed stable successful stenting. At that point, the guiding catheter, the balloon and the guidewire were removed. The sheath was removed. Hemostasis was obtained with deployment of a TR band. There was no immediate complications. Patient is returned to her room in stable condition. Of note, the patient had EKG changes and chest discomfort that improved at the end of the procedure. She received a total of 5500 units of intravenous heparin as well as intra- arterial verapamil. She received oral loading dose of clopidogrel and her ACT was followed during the procedure. RESULTS: Successful stenting of the mid right coronary artery with reduction of stenosis from 90% to 0%. RECOMMENDATIONS: Patient will be continued on aspirin, Plavix, beta blockers, and Zetia. In a week, her aspirin will be stopped and she will be continued on the Xarelto and Plavix. Those findings and recommendations were discussed with the patient and her family and they are in full understanding and agreement. Duration of procedure is 30 minutes. MMODL / IJN: [id number] / MTDD
[2021-06-05 06:17] LABS: African American GFR (CKD) 69 (>60 ml/min/1.73 sqM); Anion Gap 8 mmol/L; Blood Urea Nitrogen 34 mg/dL (7-17); Calcium 9.5 mg/dL (8.4-10.2); Carbon Dioxide 21 mmol/L (22-30); Chloride 102 mmol/L (98-107); Glucose 196 mg/dL (74-99); Non-African American GFR(CKD) 60 (>60 ml/min/1.73 sqM); Sodium 131 mmol/L (137-145)
[2021-06-05] MEDS ORDERED: LEVOTHYROXINE 75 MCG TAB PO SCH (06:30)
[2021-06-05] MEDS ORDERED: PANTOPRAZOLE 40 MG TABLET PO SCH (07:30)
[2021-06-05 07:39] VITALS: BP 132/77; PULSE 78; RESP 18; TEMP 97.5
[2021-06-05] MEDS ORDERED: atenoloL 25 MG TAB PO SCH (09:00)
[2021-06-05] MEDS ORDERED: PARoxetine 20 MG TAB PO SCH (09:00)
[2021-06-05] MEDS ORDERED: CLOPIDOGREL 75 MG TAB PO SCH (09:00)
[2021-06-05] MEDS ORDERED: MULTIVITAMINS, THERA 1 EACH TAB PO SCH (09:00)
[2021-06-05] MEDS ORDERED: ASPIRIN 81 MG PO SCH (09:00)
[2021-06-05] MEDS ORDERED: ISOSORBIDE MONONITRATE ER 30 MG TAB.ER.24H PO SCH (09:00)
[2021-06-05] MEDS ORDERED: EZETIMIBE 10 MG TAB PO SCH (09:00)
[2021-06-05] MEDS ORDERED: CHOLECALCIFEROL 25 MCG (1000 IU) TABLET PO SCH (09:00)
--- NOTE | 2021-06-05 09:10 | PN ---
PROGRESS NOTE Mrs. Ruiz is a 75-year-old female with a known history of coronary artery disease who presented with symptoms of angina pectoris, underwent cardiac catheterization and stenting of her right coronary artery. She is feeling well this morning. She is ambulating without difficulty. She denies any chest pain. No dizziness. No palpitation. She feels that her breathing is better. She continues to be in atrial fibrillation, continued to be on aspirin once a day atenolol 25 mg daily, Plavix 75 mg daily, Zetia 10 mg daily, isosorbide mononitrate 30 mg daily, levothyroxine, Protonix, Paxil 20 mg daily. PHYSICAL EXAMINATION: Blood pressure 132/70 with a heart rate in 70s. Lungs: Clear. Heart irregularly irregular S1, S2. No S3 with systolic murmur. No diastolic murmur. No rub. Abdomen: Soft nontender. Extremities: No edema. Right radial pulse intact. EKG revealed atrial fibrillation with nonspecific T-wave inversion unchanged. LAB DATA: Revealed BUN and creatinine 34 and 0.93. Potassium 5.0. IMPRESSION: 1. Status post stenting of the right coronary artery. 2. Prior stenting of the left circumflex obtuse marginal branch. 3. Atrial fibrillation, recurrent, status post ablation. RECOMMENDATIONS: The patient will be discharged home today. She will continue aspirin and Plavix in addition to Xarelto for a week, then the aspirin will be stopped and she will be continued on Plavix and Xarelto. She will be evaluated regarding her atrial fibrillation to see if repeat intervention will be needed. Depending on her progress, further recommendations will be made. MMODL / IJN: [id number] /
== END 2021-06-05 11:12 | disposition home or self-care (01) ==
LOC: CATHCVL 08:22 → 6NMEDSUR 11:00 → CATHCVL 06-05 11:12
PROVIDERS: ATTEND Internal Medicine Interventional Cardiology
DX: I25.10 Atherosclerotic heart disease of native coronary artery without angina pectoris (principal); I48.19 Other persistent atrial fibrillation; I10 Essential (primary) hypertension; E78.2 Mixed hyperlipidemia; E11.9 Type 2 diabetes mellitus without complications; I34.0 Nonrheumatic mitral (valve) insufficiency; Z82.49 Family history of ischemic heart disease and other diseases of the circulatory system; Z79.01 Long term (current) use of anticoagulants; Z79.02 Long term (current) use of antithrombotics/antiplatelets; Z79.82 Long term (current) use of aspirin; Z79.899 Other long term (current) drug therapy; Z95.5 Presence of coronary angioplasty implant and graft; Z88.5 Allergy status to narcotic agent; Z88.0 Allergy status to penicillin; Z88.8 Allergy status to other drugs, medicaments and biological substances; Z79.890 Hormone replacement therapy
CPT/HCPCS: 93458; 80048; C9600; C1769 ×2; C1887; C1894; C1874; J1200; J2930; J2001; J3010; J1644; Q9967

== ENCOUNTER 2021-06-08 10:24 | Emergency (ER) | payer MEDICARE ==
[2021-06-08 10:31] VITALS: BP 143/81; PULSE 72; RESP 18; TEMP 97.7
--- NOTE | 2021-06-08 10:50 | ED ---
General Adult HPI - General Chief complaint: Extremity Problem,Nontraumatic Stated complaint: post cardiac cath arm swelling Time Seen by Provider: 06/08/21 10:35 Source: patient, RN notes reviewed, old records reviewed Mode of arrival: ambulatory Limitations: no limitations - History of Present Illness Initial comments: 75-year-old female who has presenting with right arm pain after a heart catheterization which was performed on June 04. Patient had noticed some pain predominantly in her forearm which was worse with palpation or movement. She st ates she had arterial puncture performed of the right radial artery. She had a venous catheter in the left upper extremity. But she did have a blood draw in the right AC. Patient denies fever. She denies chest pain or dyspnea. She is on Xarelto. - Related Data Home Medications Medication Instructions Recorded Confirmed Pantoprazole Sodium 40 mg PO DAILY 06/17/15 06/04/21 atenoloL [Atenolol] 25 mg PO DAILY 06/17/15 06/04/21 Aspirin [Adult Low Dose Aspirin EC] 81 mg PO DAILY 06/15/17 06/04/21 Rivaroxaban [Xarelto] 20 mg PO DAILY 04/21/18 06/02/21 Ezetimibe [Zetia] 10 mg PO DAILY 12/09/18 06/04/21 Levothyroxine Sodium [Synthroid] 150 mcg PO DAILY 05/08/19 06/04/21 Cholecalciferol (Vitamin D3) 125 mcg PO DAILY 12/29/20 06/04/21 [Vitamin D3 (5000 Iu)] Multivitamins, Thera [Multivitamin 1 tab PO DAILY 12/29/20 06/04/21 (formulary)] PARoxetine [Paxil] 20 mg PO DAILY 12/29/20 06/04/21 Isosorbide Mononitrate ER [Imdur] 30 mg PO DAILY 06/02/21 06/04/21 Previous Rx's Medication Instructions Recorded Clopidogrel [Plavix] 75 mg PO DAILY #90 tab 06/05/21 Spironolactone 25 mg PO DAILY #90 tablet 06/05/21 Cephalexin [Keflex] 500 mg PO QID 7 Days #28 cap 06/08/21 Allergies Allergy/AdvReac Type Severity Reaction Status Date / Time codeine Allergy "couldn't Verified 06/08/21 10:31 breathe" hydroxyzine HCl Allergy Unknown Verified 06/08/21 10:31 [From Vistaril] hydroxyzine pamoate Allergy Hallucinati Verified 06/08/21 10:31 [From Vistaril] ons Iodinated Contrast Media Allergy Anaphylaxis Verified 06/08/21 10:31 [Iodinated Contrast Media - IV Dye] metoclopramide HCl Allergy "couldn't Verified 06/08/21 10:31 [From Reglan] breathe" Penicillins Allergy Rash/Hives Verified 06/08/21 10:31 ranitidine [From Zantac] Allergy Rash/Hives Verified 06/08/21 10:31 sulfamethoxazole Allergy Rash/Hives Verified 06/08/21 10:31 [From Bactrim] tree nut Allergy Anaphylaxis Verified 06/08/21 10:31 trimethoprim [From Bactrim] Allergy Unknown Verified 06/08/21 10:31 eluxadoline [From Viberzi] AdvReac Intermediate Chest Pain Verified 06/08/21 10:31 hydralazine AdvReac Hallucinati Verified 06/08/21 10:31 ons Review of Systems ROS Statement: Those systems with pertinent positive or pertinent negative responses have been documented in the HPI. ROS Other: All systems not noted in ROS Statement are negative. 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 History of Any Multi-Drug Resistant Organisms: None Reported Past Surgical History: Appendectomy, Back Surgery, Bowel Resection, Cholecystectomy, Heart Catheterization, Heart Catheterization With Stent, Hysterectomy, Joint Replacement Additional Past Surgical History / Comment(s): Bilateral hip and knee replacements, cervical fusion, epidurals for back pain. Past Anesthesia/Blood Transfusion Reactions: No Reported Reaction, Motion Sickness Additional Past Anesthesia/Blood Transfusion Reaction / Comment(s): . Date of Last Stent Placement:: 2012 Past Psychological History: No Psychological Hx Reported Smoking Status: Never smoker Past Alcohol Use History: None Reported Past Drug Use History: None Reported - Past Family History Brother(s) Family Medical History: Cancer Mother Family Medical History: Cancer General Exam Limitations: no limitations General appearance: alert, in no apparent distress Head exam: Present: atraumatic, normocephalic Eye exam: Present: normal appearance, PERRL ENT exam: Present: normal exam Neck exam: Present: normal inspection. Absent: tenderness, meningismus Respiratory exam: Present: normal lung sounds bilaterally. Absent: respiratory distress, wheezes Cardiovascular Exam: Present: regular rate, normal rhythm GI/Abdominal exam: Present: soft. Absent: distended, tenderness Extremities exam: Present: other (Right forearm: Patient has 2+ brachial, 2+ radial pulse. She has normal cap refill, extremity is warm. There is some ecchymosis and soft tissue swelling on the palmar surface of the forearm. No cellulitis, no erythema.) Neurological exam: Present: alert, oriented X3, CN II-XII intact. Absent: motor sensory deficit Psychiatric exam: Present: normal affect, normal mood Skin exam: Present: warm Course Vital Signs 06/08/21 10:29 Temperature 97.7 F Pulse Rate 72 Respiratory 18 Rate Blood Pressure 143/81 O2 Sat by Pulse 98 Oximetry Medical Decision Making - Medical Decision Making 75-year-old female went presenting with right arm pain and swelling after a heart catheterization. Patient has good distal blood flow, normal cap refill, strong radial pulse. No hematoma. There is some minimal erythema although there is no induration or fluctuance to suggest an abscess. She has ultrasound performed in the emergency department which is negative for DVT. I did discuss case with Dr. Ojeda, covering for cardiology. He recommends outpatient follow- up with Dr. Naik. I will cover this patient with Keflex for possible early cellulitis. Disposition Clinical Impression: Cellulitis Disposition: HOME SELF-CARE Condition: Good Instructions (If sedation given, give patient instructions): Cellulitis (ED) Prescriptions: Cephalexin [Keflex] 500 mg PO QID 7 Days #28 cap Is patient prescribed a controlled substance at d/c from ED?: No Referrals: Huma Jarquin DO [Primary Care Provider] - 1-2 days Florence Naik MD [STAFF PHYSICIAN] - 1-2 days Time of Disposition: 11:50
--- NOTE | 2021-06-08 11:36 | US ---
EXAMINATION TYPE: US venous doppler duplex UE RT DATE OF EXAM: 06/08/2021 COMPARISON: NONE CLINICAL HISTORY: arm swelling s/p cath. heart cath done in right radial 4 days ago, now patient has medial forearm redness and swelling, no h/o DVT SIDE PERFORMED: Right Right Arm: Negative for DVT and SVT IMPRESSION: 1. No deep venous thrombosis right upper extremity. 2. No superficial venous thrombosis. 3. There is some mild edema present within the right upper extremity.
== END 2021-06-08 12:01 | disposition home or self-care (01) ==
LOC: EC 10:24
DX: L03.113 Cellulitis of right upper limb (principal); I10 Essential (primary) hypertension; I25.10 Atherosclerotic heart disease of native coronary artery without angina pectoris; I48.91 Unspecified atrial fibrillation; E78.5 Hyperlipidemia, unspecified; K21.9 Gastro-esophageal reflux disease without esophagitis; M19.90 Unspecified osteoarthritis, unspecified site; M79.7 Fibromyalgia; Z79.01 Long term (current) use of anticoagulants; Z79.02 Long term (current) use of antithrombotics/antiplatelets; Z79.82 Long term (current) use of aspirin; Z79.890 Hormone replacement therapy; Z79.899 Other long term (current) drug therapy; Z88.0 Allergy status to penicillin; Z88.1 Allergy status to other antibiotic agents; Z88.2 Allergy status to sulfonamides; Z88.8 Allergy status to other drugs, medicaments and biological substances; Z90.49 Acquired absence of other specified parts of digestive tract
CPT/HCPCS: 99283

== ENCOUNTER 2022-02-03 07:01 | Day surgery (SDC) | payer MEDICARE ==
[2022-01-29 16:20] VITALS: BMI 29.2
[~2022-02-03 07:01] MED LIST changes: -ALPRAZolam 0.25 MG TAB PO PRN; -ALPRAZolam 0.5 MG TAB PO PRN; -ASPIRIN 325 MG TAB PO ONE; -ATORVASTATIN 80 MG TAB PO ONE; -HEPARIN SODIUM,PORCINE 10,000 UNIT in SODIUM CHLORIDE 0.9% 1,000 ML IRRIGATION PRN; -HEPARIN SODIUM,PORCINE 2,500 UNIT in SODIUM CHLORIDE 0.9% 250 ML IRRIGATION PRN; +LACTATED RINGERS 1,000 ML IV SCH; -NITROGLYCERIN SL TABS 0.4 MG TAB SUBLINGUAL PRN; +SODIUM CHLORIDE 0.9% 1,000 ML IV SCH; -SODIUM CHLORIDE 0.9% 1,000 ML in EMPTY BAG 1 BAG IV ONE
[2022-02-03] MEDS ORDERED: SODIUM CHLORIDE 0.9% 500 ML 500 ML IV ONE (07:15)
[2022-02-03 07:47] LABS: Glucose,Whole Blood 102 mg/dL (75-99)
[2022-02-03 08:10] LABS: Calcium 9.3 mg/dL (8.4-10.2); Potassium 4.2 mmol/L (3.5-5.1)
[2022-02-03] MEDS ORDERED: ONDANSETRON 4 MG/2 ML VIAL IVP STA (08:55)
[2022-02-03] MEDS ORDERED: ONDANSETRON 4 MG/2 ML VIAL ONE (08:56)
[2022-02-03] MEDS ORDERED: LIDOCAINE 1% INJ 10MG/ML (20 ML MDV) ONE (09:15)
[2022-02-03] MEDS ORDERED: PROPOFOL 10 MG/ML 20 ML VIAL IV ONE (09:15)
[2022-02-03 09:40] VITALS: TEMP 97.5
--- NOTE | 2022-02-03 09:41 | P.PCN ---
Date of Procedure: 02/03/22 Description of Procedure: Indication: Evaluation of left atrial appendage Procedure Description: After explaining the procedure to the patient, it's risk and complications, blood pressure, heart rate and O2 saturation were monitored. The throat was sprayed with Cetacaine. Patient received sedation per anesthesia department. The probe was introduced into the esophagus without difficulty. Images were obtained. Following that, the probe was removed. There was no immediate complication. Findings: Left atrial size is mildly dilated, left atrial appendage is normal. Left ventricle size and systolic function are normal. The aortic valve revealed fibrocalcific changes of the aortic cusps with preserved opening, mild calcification of the mitral valve was noted. Tricuspid valve was normal. Descending thoracic aorta revealed mild atherosclerotic changes. No pericardial effusion was noted. Contrast bubble study revealed no shunting across the intra-atrial septum. Doppler: Pulse wave and color Doppler were obtained revealed moderate mitral and tricuspid regurgitation, right ventricle systolic pressure is less than 35 mmHg. No shunting was noted by color Doppler study. Conclusion: 1. Mildly dilated left atrium with normal appearance of left atrial appendage 2. Normal size and systolic function 3. Moderate mitral and tricuspid regurgitation 4. Mild calcification of the descending thoracic aorta 5. No pericardial effusion
--- NOTE | 2022-02-03 09:43 | P.PN ---
Subjective Progress Note Date: 02/03/22 Cardioversion: Indications atrial fibrillation. Procedure after explaining the procedure to the patient as well as the risks and the complications. Her blood pressure, heart rate and O2 saturation was latisha tored. After obtaining sedated state by anesthesia department and obtaining transesophageal echocardiogram synchronized biphasic cardioversion using 200 J was performed with sikhism of normal sinus rhythm with frequent PACs. There was no immediate complications. Objective - Vital Signs Vital signs: Vital Signs Temp 97.5 F L 02/03/22 09:34 Pulse 78 02/03/22 09:34 Resp 14 02/03/22 09:34 BP 100/61 02/03/22 09:34 Pulse Ox 98 02/03/22 09:34 Intake & Output 02/02/22 02/03/22 02/03/22 18:59 06:59 18:59 Intake Total 50 Balance 50 Weight 73.7 kg Intake: IV 50 - Labs CBC & Chem 7: 02/03/22 07:15 Labs: Abnormal Lab Results - Last 24 Hours (Table) 02/03/22 02/03/22 Range/Units 07:15 07:46 Chloride 108 H (98-107) mmol/L BUN 25 H (7-17) mg/dL Glucose 110 H (74-99) mg/dL POC Glucose (mg/dL) 102 H (75-99) mg/dL
[2022-02-03] MEDS ORDERED: SODIUM CHLORIDE 0.9% 1,000 ML IV SCH (09:45)
[2022-02-03 10:29] VITALS: RESP 16
[2022-02-03 12:19] VITALS: BP 115/65; PULSE 68
[2022-02-03] MEDS ORDERED: DRONEDARONE 400 MG TAB PO SCH (21:00)
[2022-02-04] MEDS ORDERED: PANTOPRAZOLE 40 MG TABLET PO SCH (07:30)
[2022-02-04] MEDS ORDERED: metFORMIN 500 MG TAB PO SCH (07:30)
[2022-02-04] MEDS ORDERED: RIVAROXABAN 20 MG TAB PO SCH (09:00)
[2022-02-04] MEDS ORDERED: EZETIMIBE 10 MG TAB PO SCH (09:00)
[2022-02-04] MEDS ORDERED: SPIRONOLACTONE 25 MG TAB PO SCH (09:00)
[2022-02-04] MEDS ORDERED: PARoxetine 20 MG TAB PO SCH (09:00)
[2022-02-04] MEDS ORDERED: atenoloL 25 MG TAB PO SCH (09:00)
[2022-02-04] MEDS ORDERED: CLOPIDOGREL 75 MG TAB PO SCH (09:00)
== END 2022-02-03 11:53 | disposition home or self-care (01) ==
LOC: CATHCVL 07:01
PROVIDERS: ATTEND Internal Medicine Interventional Cardiology
DX: I48.19 Other persistent atrial fibrillation (principal); I08.1 Rheumatic disorders of both mitral and tricuspid valves; Z20.822 Contact with and (suspected) exposure to COVID-19; I25.10 Atherosclerotic heart disease of native coronary artery without angina pectoris; I10 Essential (primary) hypertension; E78.5 Hyperlipidemia, unspecified; G47.33 Obstructive sleep apnea (adult) (pediatric); E11.9 Type 2 diabetes mellitus without complications; M79.7 Fibromyalgia; E07.9 Disorder of thyroid, unspecified; Z79.01 Long term (current) use of anticoagulants; Z79.890 Hormone replacement therapy; Z79.899 Other long term (current) drug therapy; Z79.84 Long term (current) use of oral hypoglycemic drugs; Z88.5 Allergy status to narcotic agent; Z88.2 Allergy status to sulfonamides; Z88.8 Allergy status to other drugs, medicaments and biological substances; Z91.041 Radiographic dye allergy status; Z82.49 Family history of ischemic heart disease and other diseases of the circulatory system; Z79.02 Long term (current) use of antithrombotics/antiplatelets
CPT/HCPCS: 93312; 93320; 93005; 93325; 92960; 80048; 87635; J2405; J2001; J2704

== ENCOUNTER → 2022-06-29 | Outpatient (CLI) | payer MEDICARE ==
--- NOTE | 2022-06-29 15:43 | MM ---
Reason for Exam: Screening (asymptomatic). Last mammogram was performed 3 year(s) and 5 month(s) ago. Patient History: Menarche at age 11. First Full-Term at age 17. Hysterectomy at age 29. Postmenopausal. Other cancer, age 67. Estrogen for 30 years from age 29 until age 59. Niece had breast cancer, age 42. Risk Values: Alyssa 5 year model risk: 1.2%. NCI Lifetime model risk: 2.2%. Prior Study Comparison: 12/06/2017 Bilateral Screening Mammogram, [facility]. 01/26/2019 Bilateral Screening Mammogram, [facility]. 11/03/2019 Left Diagnostic Mammogram, [facility]. Tissue Density: The breast tissue is heterogeneously dense. This may lower the sensitivity of mammography. Findings: Analyzed By CAD. There is no suspicious group of microcalcifications or new suspicious mass in either breast. Overall Assessment: Negative, BI-RAD 1 Management: Screening Mammogram of both breasts in 1 year. A clinical breast exam by your physician is recommended on an annual basis and results should be correlated with mammographic findings. Electronically signed and approved by: Stephen Ying DO
== END | disposition home or self-care (01) ==
LOC: RADMAMWWP 14:48
PROVIDERS: ATTEND Family Medicine
DX: Z12.31 Encounter for screening mammogram for malignant neoplasm of breast (principal); Z78.0 Asymptomatic menopausal state; Z80.3 Family history of malignant neoplasm of breast
CPT/HCPCS: 77063; 77067

== ENCOUNTER → 2022-08-04 | Outpatient (CLI) | payer MEDICARE ==
[2022-08-05 01:09] LABS: African American GFR (CKD) 62.5 (60.0-200.0); Anion Gap 13.4 mmol/L (10.00-18.00); Blood Urea Nitrogen 27.5 mg/dL (9.0-27.0); Carbon Dioxide 22.6 mmol/L (20.0-27.5); Non-African American GFR(CKD) 53.9 (60.0-200.0)
[2022-08-05 01:35] LABS: HCT 45.5 % (37.2-46.3); HGB 14.7 g/dL (12.0-15.0); MCH 31.6 pg (27.0-32.0); MCHC 32.3 g/dL (32.0-37.0); MCV 97.8 fL (80.0-97.0); Mean Platelet Volume 10.5 fL (9.5-12.2); NRBC Per 100 WBC 0 /100 WBCS (0.0-0.0); Platelet Count 314 X 10*3/uL (140-440); RBC 4.65 X 10*6/uL (4.10-5.20); RDW 12.4 % (11.5-14.5); WBC 11.97 X 10*3/uL (4.50-10.00)
== END | disposition home or self-care (01) ==
LOC: LABPAT 14:45
PROVIDERS: ATTEND Internal Medicine Interventional Cardiology
DX: Z01.818 Encounter for other preprocedural examination (principal); R94.39 Abnormal result of other cardiovascular function study
CPT/HCPCS: 80051; 82565; 84520; 85027

== ENCOUNTER 2022-08-06 05:55 | Day surgery (SDC) | payer MEDICARE ==
[2022-08-06] MEDS ORDERED: ALPRAZolam 0.5 MG TAB PO PRN (06:00)
[2022-08-06] MEDS ORDERED: ASPIRIN 325 MG TAB PO STA (06:00)
[2022-08-06] MEDS ORDERED: NITROGLYCERIN SL TABS 0.4 MG TAB SUBLINGUAL PRN (06:00)
[2022-08-06] MEDS ORDERED: ALPRAZolam 0.25 MG TAB PO PRN (06:00)
[2022-08-06] MEDS ORDERED: SODIUM CHLORIDE 0.9% 1,000 ML in EMPTY BAG 1 BAG IV ONE (06:00)
[2022-08-06] MEDS ORDERED: SODIUM CHLORIDE 0.9% 1,000 ML IV ONE (06:13)
[2022-08-06 06:35] LABS: Glucose,Whole Blood 160 mg/dL (70-110)
[2022-08-06 06:36] VITALS: RESP 16; TEMP 98.3
[2022-08-06] MEDS ORDERED: VERAPAMIL 2.5 MG/ML 2 ML AMP ONE (07:34)
[2022-08-06] MEDS ORDERED: fentaNYL (PF) 50 MCG/ML 2 ML AMP ONE (07:35)
[2022-08-06] MEDS ORDERED: HEPARIN SODIUM 1,000 UN/ML (10ML VL) ONE (07:35)
[2022-08-06] MEDS ORDERED: fentaNYL (PF) 50 MCG/ML 2 ML AMP IV ONE (07:55)
[2022-08-06] MEDS ORDERED: LIDOCAINE 1% INJ 10MG/ML (30 ML VIAL-PF) SQ ONE (07:55)
[2022-08-06] MEDS ORDERED: MIDAZOLAM 2 MG/2 ML VIAL IV ONE (07:56)
[2022-08-06] MEDS ORDERED: VERAPAMIL SYRINGE (5 MG/10 ML) INTRAARTER ONE (07:57)
[2022-08-06] MEDS ORDERED: HEPARIN SODIUM 1,000 UN/ML (10ML VL) IV ONE (08:08)
[2022-08-06] MEDS ORDERED: RX INFO: IV CONTRAST WAS GIVEN 1 EACH MISC MISCELLANE PRN (08:26)
[2022-08-06] MEDS ORDERED: IOPAMIDOL-370 125ML BTL INJ ONE ×2 (08:30)
[2022-08-06] MEDS ORDERED: SODIUM CHLORIDE 0.9% 1,000 ML IV SCH (08:30)
--- NOTE | 2022-08-06 08:33 | P.CARDCATH ---
Date of Procedure: 08/06/22 Description of Procedure: Cardiac Catheterization: The patient is a 76-year-old female with a known history of hypertension, hyperlipidemia, atrial fibrillation and a prior history of CAD who has been complaining of dyspnea on exertion. She scheduled to undergo ablation of her atrial fibrillation, she had an abnormal MPI. Recommendations were made regarding cardiac catheterization, the risks and the complications were discussed with the patient who is in full understanding and agreement. Procedure Description: Patient was brought to labor gang supervisor in fasting semi-sedated state after receiving Fentanyl and Benadryl achieiving moderate conscious sedated state. Using Xylocaine Anesthesia and Seldinger technique, a 6-Portuguese sheath was introduced in the left radial artery . Subsequently, selective coronary angiography was performed using a 5-Portuguese 4 bend right Bob bend and 3.5 bend left Bob catheter. Multiple views of the coronary artery including hemiaxial views were obtained. The left Bob catheter was used to cross the aortic valve and LVEDP was calculated. Following that, catheter and sheath were removed. Hemostasis was obtained with deployment of TR band . There was no immediate complication. Patient was returned to room in stable condition. Of note, the patient received a total of 3500 units of intravenous heparin as well as intra-arterial verapamil. Findings: Left main: This is a large size vessel, bifurcating into left circumflex and LAD, left main has no high-grade stenosis LAD: This is a large size vessel, tapers down in the distal third. The mid LAD after the takeoff of the diagonal branch has a 50% stenosis and there is a plaque in the proximal diagonal branch, the rest of the the vessel has no high- grade stenosis Left circumflex: This is a dominant vessel giving rise to 2 obtuse marginal branch, the stented segment is patent with mild intimal disease of 10-20% RCA: This is a large dominant vessel, bifurcating distally into PDA and PLV, the proximal RCA has 20% plaque in the midsegment stented is patent with minimal in- stent restenosis Left Ventriculogram: Not performed Hemodynamics: There was no gradient across the aortic valve , LVEDP was 10-12 mmHg Conclusion: 1. Mild to moderate disease in the mid LAD and diagonal branch with no progression 2. Mild disease in the RCA and left circumflex with patent stents 3. Right dominance 4. Normal LVEDP Recommendations: I have recommended to continue medical therapy, the patient will proceed with her scheduled ablation. The findings and the recommendations were discussed with the patient and the family and they were in full understanding and agreement. Duration of sedation is 25 minutes.
[2022-08-06 16:16] VITALS: BP 111/72; PULSE 66
[2022-08-07] MEDS ORDERED: LEVOTHYROXINE 75 MCG TAB PO SCH (06:30)
[2022-08-07] MEDS ORDERED: PANTOPRAZOLE 40 MG TABLET PO SCH (07:30)
[2022-08-07] MEDS ORDERED: EZETIMIBE 10 MG TAB PO SCH (09:00)
[2022-08-07] MEDS ORDERED: RIVAROXABAN 20 MG TAB PO SCH (09:00)
[2022-08-07] MEDS ORDERED: PARoxetine 20 MG TAB PO SCH (09:00)
[2022-08-07] MEDS ORDERED: CLOPIDOGREL 75 MG TAB PO SCH (09:00)
[2022-08-07] MEDS ORDERED: atenoloL 25 MG TAB PO SCH (09:00)
[2022-08-07] MEDS ORDERED: SPIRONOLACTONE 25 MG TAB PO SCH (09:00)
[2022-08-07] MEDS ORDERED: CHOLECALCIFEROL 125 MCG (5000 IU) TABLET PO SCH (09:00)
== END 2022-08-06 12:15 | disposition home or self-care (01) ==
LOC: CATHCVL 05:55
PROVIDERS: ATTEND Internal Medicine Interventional Cardiology
DX: I25.10 Atherosclerotic heart disease of native coronary artery without angina pectoris (principal); R94.39 Abnormal result of other cardiovascular function study; I10 Essential (primary) hypertension; I48.91 Unspecified atrial fibrillation; E78.5 Hyperlipidemia, unspecified
CPT/HCPCS: 93458; C1769 ×3; C1894; J2250; J2001; J3010; J1644; Q9967

== ENCOUNTER 2022-08-08 11:44 | Emergency (ER) | payer MEDICARE ==
[2022-08-08 11:49] VITALS: TEMP 97.8
--- NOTE | 2022-08-08 12:14 | ED ---
General Adult HPI - General Chief complaint: Recheck/Abnormal Lab/Rx Stated complaint: Lt. arm swelling Time Seen by Provider: 08/08/22 11:51 Source: patient, RN notes reviewed, old records reviewed Mode of arrival: ambulatory Limitations: no limitations - History of Present Illness Initial comments: 76-year-old female presented for evaluation of wrist and forearm pain and swelling. Patient is 2 days postop left radial heart cath this was performed on August 06. She is currently on both Plavix and Xarelto. She denies chest pain or dyspnea. She has history of atrial fibrillation. She denies fever. She's had progressive pain over the past 2 days with some soft tissue swelling and ecchymosis. She has no pain in the hand. Normal sensation. - Related Data Home Medications Medication Instructions Recorded Confirmed Pantoprazole Sodium 40 mg PO DAILY 06/17/15 08/06/22 atenoloL 25 mg PO DAILY 06/17/15 08/06/22 Rivaroxaban [Xarelto] 20 mg PO DAILY 04/21/18 08/06/22 Ezetimibe [Zetia] 10 mg PO DAILY 12/09/18 08/06/22 Levothyroxine Sodium [Synthroid] 150 mcg PO DAILY 05/08/19 08/06/22 Cholecalciferol (Vitamin D3) 125 mcg PO DAILY 12/29/20 08/06/22 [Vitamin D3 (5000 Iu)] PARoxetine [Paxil] 20 mg PO DAILY 12/29/20 08/06/22 L.acidoph,Paracasei, B.lactis 1 each PO DAILY 08/05/22 08/06/22 [Probiotic] Previous Rx's Medication Instructions Recorded Clopidogrel [Plavix] 75 mg PO DAILY #90 tab 06/05/21 Spironolactone 25 mg PO DAILY #90 tablet 06/05/21 Allergies Allergy/AdvReac Type Severity Reaction Status Date / Time codeine Allergy "couldn't Verified 08/08/22 11:46 breathe" hydroxyzine HCl Allergy Unknown Verified 08/08/22 11:46 [From Vistaril] hydroxyzine pamoate Allergy Hallucinati Verified 08/08/22 11:46 [From Vistaril] ons Iodinated Contrast Media Allergy Anaphylaxis Verified 08/08/22 11:46 [Iodinated Contrast Media - IV Dye] metoclopramide HCl Allergy "couldn't Verified 08/08/22 11:46 [From Reglan] breathe" Penicillins Allergy Rash/Hives Verified 08/08/22 11:46 ranitidine [From Zantac] Allergy Rash/Hives Verified 08/08/22 11:46 sulfamethoxazole Allergy Rash/Hives Verified 08/08/22 11:46 [From Bactrim] tree nut Allergy Anaphylaxis Verified 08/08/22 11:46 trimethoprim [From Bactrim] Allergy Unknown Verified 08/08/22 11:46 eluxadoline [From Viberzi] AdvReac Intermediate Chest Pain Verified 08/08/22 11:46 hydralazine AdvReac Hallucinati Verified 08/08/22 11:46 ons Review of Systems ROS Statement: Those systems with pertinent positive or pertinent negative responses have been documented in the HPI. ROS Other: All systems not noted in ROS Statement are negative. 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 Past Anesthesia/Blood Transfusion Reactions: No Reported Reaction, Motion Sickness Additional Past Anesthesia/Blood Transfusion Reaction / Comment(s): . Date of Last Stent Placement:: Jun 2021 Past Psychological History: No Psychological Hx Reported Smoking Status: Never smoker - Past Family History Brother(s) Family Medical History: Cancer Mother Family Medical History: Cancer General Exam Limitations: no limitations General appearance: alert, in no apparent distress Head exam: Present: atraumatic, normocephalic Eye exam: Present: normal appearance, PERRL ENT exam: Present: normal exam Neck exam: Present: normal inspection. Absent: tenderness, meningismus Respiratory exam: Present: normal lung sounds bilaterally. Absent: respiratory distress, wheezes Cardiovascular Exam: Present: regular rate, irregular rhythm GI/Abdominal exam: Absent: distended Extremities exam: Present: other (Left wrist and forearm, there is mild soft tissue swelling in the forearm with ecchymosis, no erythema or warmth. Radial and ulnar pulses are palpable. There is no pulsatile mass. There is normal cap refill within to the hand and normal waveform on pulse oximetry) Neurological exam: Present: alert, oriented X3, CN II-XII intact. Absent: motor sensory deficit Psychiatric exam: Present: normal affect, normal mood Skin exam: Present: warm, dry, intact Course Vital Signs 08/08/22 11:46 Temperature 97.8 F Pulse Rate 72 Respiratory 16 Rate Blood Pressure 137/80 O2 Sat by Pulse 97 Oximetry Medical Decision Making - Medical Decision Making 76-year-old female 2 days status post left radial heart Presenting with pain and swelling in the forearm. There is some ecchymosis and mild soft tissue swelling. Distal pulses intact including radial and ulnar pulses. Normal cap refill within the hand, no signs of cellulitis or infection currently. The puncture sites has no pulsatile mass. I did perform ultrasound of the artery for pseudoaneurysm this was negative. I did also perform ultrasound of the venous system because of the swelling. This was positive for a brachial DVT. The patient is currently on Xarelto at baseline with history of atrial fibrillation. I discussed case both with Dr. Mcginnis, vascular surgery and Dr. Manish edwards for cardiology. She is not anticoagulated, nothing to do, will monitor closely return with chest pain or dyspnea. Follow up with cardiology as planned. Disposition Clinical Impression: DVT (deep venous thrombosis) Disposition: HOME SELF-CARE Condition: Good Instructions (If sedation given, give patient instructions): Deep Vein Thrombosis (ED) Is patient prescribed a controlled substance at d/c from ED?: No Referrals: Nonstaff,Physician [Primary Care Provider] - 1-2 days Florence Naik MD [STAFF PHYSICIAN] - 1-2 days Time of Disposition: 13:56
--- NOTE | 2022-08-08 13:35 | US ---
EXAMINATION TYPE: US venous doppler duplex UE LT DATE OF EXAM: 08/08/2022 COMPARISON: NONE CLINICAL HISTORY: Swelling and pain. Left Arm: Positive for DVT. There appears to be no flow in one of the paired brachial veins. The left axillary vein and the left basilic and cephalic veins are patent and compressible with flow. IMPRESSION: Positive left upper extremity DVT involving one of the brachial veins.
--- NOTE | 2022-08-08 13:41 | US ---
EXAMINATION TYPE: US upper ext pseudo LT DATE OF EXAM: 08/08/2022 COMPARISON: NONE CLINICAL HISTORY: pain that is post left radial heart cath Patent radial artery with no evidence of pseudoaneurysm. IMPRESSION: There is no abnormality of the right radial artery in the region of the catheterization. There is no evidence of pseudotumor
[2022-08-08 14:19] VITALS: BP 136/60; PULSE 74; RESP 20
== END 2022-08-08 14:16 | disposition home or self-care (01) ==
LOC: EC 11:44
DX: I82.402 Acute embolism and thrombosis of unspecified deep veins of left lower extremity (principal); I10 Essential (primary) hypertension; I48.91 Unspecified atrial fibrillation; I25.10 Atherosclerotic heart disease of native coronary artery without angina pectoris; C80.1 Malignant (primary) neoplasm, unspecified; E11.9 Type 2 diabetes mellitus without complications; K21.9 Gastro-esophageal reflux disease without esophagitis; E78.5 Hyperlipidemia, unspecified; M19.90 Unspecified osteoarthritis, unspecified site; G47.30 Sleep apnea, unspecified; E07.9 Disorder of thyroid, unspecified; Z79.83 Long term (current) use of bisphosphonates; Z79.02 Long term (current) use of antithrombotics/antiplatelets; Z79.890 Hormone replacement therapy; Z88.5 Allergy status to narcotic agent; Z88.6 Allergy status to analgesic agent; Z91.041 Radiographic dye allergy status; Z88.0 Allergy status to penicillin; Z88.8 Allergy status to other drugs, medicaments and biological substances; Z88.2 Allergy status to sulfonamides; Z91.018 Allergy to other foods
CPT/HCPCS: 99283

== ENCOUNTER → 2022-08-10 | Outpatient (CLI) | payer MEDICARE ==
[2022-08-10 23:47] LABS: HCT 42.2 % (37.2-46.3); HGB 14.5 g/dL (12.0-15.0); MCH 31.4 pg (27.0-32.0); MCHC 34.4 g/dL (32.0-37.0); MCV 91.3 fL (80.0-97.0); Mean Platelet Volume 10.1 fL (9.5-12.2); NRBC Per 100 WBC 0 /100 WBCS (0.0-0.0); Platelet Count 324 X 10*3/uL (140-440); RBC 4.62 X 10*6/uL (4.10-5.20); RDW 12.2 % (11.5-14.5); WBC 14.19 X 10*3/uL (4.50-10.00)
[2022-08-11 01:01] LABS: African American GFR (CKD) 81.7 (60.0-200.0); Anion Gap 13.1 mmol/L (10.00-18.00); Blood Urea Nitrogen 22.9 mg/dL (9.0-27.0); Carbon Dioxide 22.5 mmol/L (20.0-27.5); Non-African American GFR(CKD) 70.5 (60.0-200.0)
== END | disposition home or self-care (01) ==
LOC: LABPAT 14:52
PROVIDERS: ATTEND Internal Medicine Clinical Cardiac Electrophysiology
DX: Z01.812 Encounter for preprocedural laboratory examination (principal); I35.0 Nonrheumatic aortic (valve) stenosis; I25.10 Atherosclerotic heart disease of native coronary artery without angina pectoris
CPT/HCPCS: 36415; 80051; 82565; 84520; 85027

== ENCOUNTER 2022-08-17 09:47 | Day surgery (SDC) | payer MEDICARE ==
[2022-08-14 12:45] VITALS: BMI 29.0
[2022-08-17] MEDS ORDERED: SODIUM CHLORIDE 0.9% 1,000 ML IV ONE (10:23)
[2022-08-17 10:45] LABS: Glucose,Whole Blood 99 mg/dL (70-110)
[2022-08-17] MEDS ORDERED: methylPREDNISolone SOD SUCCI 125 MG/2 ML VIAL ONE (13:07)
[2022-08-17] MEDS ORDERED: LIDOCAINE 1% INJ 10MG/ML (30 ML VIAL-PF) SQ ONE ×2 (13:11→13:12)
[2022-08-17] MEDS ORDERED: methylPREDNISolone SOD SUCCI 125 MG/2 ML VIAL IV ONE (13:11)
[2022-08-17] MEDS ORDERED: HEPARIN SOD,PORK IN 0.45% NACL 25,000 UNIT in 0.45% NACL 1 250ML.BAG IV ONE (13:16)
[2022-08-17] MEDS ORDERED: HEPARIN SODIUM (1,000 UNIT/ML) 1,000 UNIT in SODIUM CHLORIDE 0.9% 1,000 ML IRRIGATION ONE (13:17)
[2022-08-17] MEDS ORDERED: IOPAMIDOL-370 100ML BTL INJ ONE (14:41)
--- NOTE | 2022-08-17 17:04 | P.EPPROC ---
- EP Procedure Note Electrophysiology Procedure Note: Patient underwent A. fib ablation Very dilated left atrium This is a long procedure First pulmonary vein isolation was performed Left atrial roof line was performed She remained in atrial fibrillation Thereafter linear ablation in the left atrial ridge area was performed This is connected to the mitral annulus This resulted in the most organization of this atrial fibrillation Fractionated electrograms was sought in the left atrial septum in the fossa ovalis RF ablation was performed with further organization RF ablation of this then performed on the fossa ovalis in the right side She still remained in a relatively organized atrial fibrillation but did not terminate She underwent successful electrical cardioversion at the end of the procedure This procedure took almost 5 hours Plan Continue anticoagulation Patient is intolerant of multiple medications including Multaq and amiodarone I have changed her with dofetilide in the past She's had coronary stenting performed to the OM 2 and to the mid RCA The most recent stent was in June 2021 Continue current medications including xarelto No antiarrhythmic drugs for now
--- NOTE | 2022-08-17 17:09 | P.HPCAR ---
History of Present Illness This is Dr. Nolen dictating an H/P on this patient The patient was interviewed and examined IMPRESSION / ASSESSMENT: Persistent symptomatic atrial fibrillation CAD Dilated left atrium, dilated right atrium Intolerance to multiple antiarrhythmic drugs Apparent heart failure admission at [facility] Intolerant of multiple antiarrhythmic drugs She has been treated with flecainide, Multaq amiodarone and dofetilide PLAN: A. fib ablation in the right and left atria HPI Patient remains symptomatic atrial fibrillation when she complained of shortness of breath She was admitted with a heart failure exacerbation at [facility] She has had an AF ablation in 2019 Subsequently multiple level to the drugs have also been attempted She maintains sinus rhythm for about 2-3 years ROS: No fever chills or rigors, no cough, phlegm or expectoration, no nausea, vomiting or diarrhea, no hematuria, dysuria, no musculoskeletal complaints, no strokes or seizures, no skin lesions. EXAMINATION: Afebrile respirations normal Blood pressure 130/70 mmHg Heart sounds are irregular Breath sounds are clear No JVD No lower extremity edema REVIEW OF LABS, ECG & MEDICAL DATA patient on Xarelto atenolol spironolactone Zetia and Plavix Physical Exam Vitals: Vital Signs Temp Resp BP BP Pulse Ox 08/17/22 10:50 98.5 F 16 130/70 150/65 97 Intake and Output 08/17/22 08/17/22 08/17/22 06:59 14:59 22:59 Intake Total 1273 Output Total 110 Balance 1273 -110 Intake: IV 1273 Output: Urine 110 Past Medical History Past Medical History: Atrial Fibrillation, Coronary Artery Disease (CAD), Cancer, Diabetes Mellitus, Fibromyalgia, GERD/Reflux, Hyperlipidemia, Hypertension, Osteoarthritis (OA), Thyroid Disorder Additional Past Medical History / Comment(s): Chronic Lymphocytic Leukemia, Anemia, 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 Dr. Nolen's H&P. Pre- diabetic is controlled by diet. History of Any Multi-Drug Resistant Organisms: None Reported Past Surgical History: Appendectomy, Back Surgery, Bowel Resection, Cholecystectomy, Heart Catheterization, Heart Catheterization With Stent, Hysterectomy, Joint Replacement Additional Past Surgical History / Comment(s): Bilateral hip and knee replacements, cervical fusion, epidurals for back pain. Heart cath with stent 3 weeks ago. Past Anesthesia/Blood Transfusion Reactions: Motion Sickness Additional Past Anesthesia/Blood Transfusion Reaction / Comment(s): Last stent states felt terrible. Date of Last Stent Placement:: Jun 2021 Smoking Status: Never smoker - Past Family History Brother(s) Family Medical History: Cancer Mother Family Medical History: Cancer Physical Examination Vital Signs Temp Resp BP BP Pulse Ox 08/17/22 10:50 98.5 F 16 130/70 150/65 97 Intake and Output 08/17/22 08/17/22 08/17/22 06:59 14:59 22:59 Intake Total 1273 Output Total 110 Balance 1273 -110 Intake: IV 1273 Output: Urine 110 Results Current Medications Generic Name Dose Route Start Last Admin Trade Name Freq PRN Reason Stop Dose Admin Sodium Chloride 1,000 mls @ 20 mls/hr 08/17/22 05:43 Saline 0.9% IV 09/16/22 05:44 .Q24H ELPIDIO Intake and Output 08/17/22 08/17/22 08/17/22 06:59 14:59 22:59 Intake Total 1273 Output Total 110 Balance 1273 -110 Intake: IV 1273 Output: Urine 110
--- NOTE | 2022-08-17 17:22 | P.EPPROC ---
- EP Procedure Note Electrophysiology Procedure Note: Preop Diagnosis Persistent atrial fibrillation In 2019 she underwent AF ablation with PVI and linear ablation She is intolerant to multiple antra the drugs She maintains sinus rhythm for about 2-3 years but now is back in A. 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 Written informed consent was obtained prior to the procedure General anesthesia was provided The right and left groins were prepped and draped as a protocol Venous sheaths placed in the right and left femoral veins Intracardiac at after, diagnostic catheters mapping and ablation catheter placed She was in atrial fibrillation the start of the study Coronary sinus catheter demonstrated totally disorganized atrium Left and right transseptal catheterization was performed Intracardiac echo revealed biatrial enlargement very small basal pericardial effusion Transseptal catheterization was performed RA pressure 7/1/4 mmHg LA pressure 20/2/10 mmHg First She Underwent Cryoablation of the Pulmonary Veins Successfully with Complete Isolation Using a Standard Protocol after Transseptal Catheterization Pulmonary vein isolation was performed with cryoablation Linear ablation was performed of the left atrial roof and the upper half of the posterior wall The posterior wall in between the pulmonary veins was completely isolated with cryoablation Thereafter using RF, 3-D mapping was performed Linear ablation was performed in the left atrial drainage, at the Coumadin ridge and anterior to the left inferior pulmonary vein down to the mitral annulus. The left inferior pulmonary vein and the mitral annulus for connected This resulted in the most organization of her atrial fibrillation Subsequently fractionated electrograms were sought in the septum posterior to the fossa ovalis and RF ablation was performed in the septum Lead and ablation was performed from the roof down to the right inferior pulmonary vein. 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 Her response to ablation at various sites in the left atrium and right atrium HV interval was 31 ms [place] interval vein was normal 135 ms QRS 97 ms and QT 371 ms, sinus cycle length 1150 ms The patient to the procedure well without any acute complications Access sites were closed with Vascade
[2022-08-17] MEDS ORDERED: ACETAMINOPHEN IV (For NPO) 1,000 MG in EMPTY BAG 1 BAG IVPB ONE (17:23)
[2022-08-17] MEDS ORDERED: ACETAMINOPHEN TAB 325 MG TAB PO PRN (17:23)
[2022-08-17] MEDS: SODIUM CHLORIDE 0.9% 1,000 ML IV SCH (19:25)
[2022-08-18] MEDS: SODIUM CHLORIDE 0.9% 1,000 ML IV SCH (05:49)
[2022-08-18] MEDS ORDERED: LEVOTHYROXINE 75 MCG TAB PO SCH (06:30)
[2022-08-18] MEDS ORDERED: PANTOPRAZOLE 40 MG TABLET PO SCH (07:30)
--- NOTE | 2022-08-18 08:28 | P.DS ---
Providers Attending physician: Antonio Nolen Primary care physician: [facility] Course: Patient is resting in bed She has pleuritic chest discomfort but she does not have pericardial rub on examination No S3 gallop Heart rate is normal Heart rates in the 70s blood pressure 104/66 106/61 mmHg Groins if healed well Normal heart sounds no S3 gallop no rub Lungs are clear Twelve-lead EKG shows sinus rhythm with PACs T-wave inversions V4-V6 Impression Significantly enlarged left atrium Persistent atrial fibrillation line extensive A. fib ablation with PVI and linear ablation the left atrium PVI, roofline, exterior wall ablation, left atrial septal ablation and ablation of the fossa ovalis from the left side Linear ablation along the ridge in front of the left inferior pulmonary vein up to the mitral annulus. This resulted in the most organization of the A. fib Linear ablation along the fossa ovalis in the right atrium The patient was left with somewhat relatively organized atrial fibrillation but the coronary sinus activation changes from concentric to eccentric It is my impression that this patient has a vein of Christofer tachycardia based upon her response to ablation along the ridge Plan Up in a chair Orthostatics Colchicine Continue anticoagulation Late discharged today if she is hemodynamically stable Follow-up in the office this week Patient Condition at Discharge: Stable Plan - Discharge Summary Discharge Rx Participant: No New Discharge Prescriptions: Continue Pantoprazole Sodium 40 mg PO DAILY atenoloL 25 mg PO DAILY Rivaroxaban [Xarelto] 20 mg PO DAILY Ezetimibe [Zetia] 10 mg PO DAILY Levothyroxine Sodium [Synthroid] 150 mcg PO DAILY Cholecalciferol (Vitamin D3) [Vitamin D3 (5000 Iu)] 125 mcg PO DAILY PARoxetine [Paxil] 20 mg PO DAILY Clopidogrel [Plavix] 75 mg PO DAILY #90 tab L.acidoph,Paracasei, B.lactis [Probiotic] 1 each PO DAILY Spironolactone 25 mg PO DAILY #90 tablet Discharge Medication List Pantoprazole Sodium 40 mg PO DAILY 06/17/15 [History] atenoloL 25 mg PO DAILY 06/17/15 [History] Rivaroxaban [Xarelto] 20 mg PO DAILY 04/21/18 [History] Ezetimibe [Zetia] 10 mg PO DAILY 12/09/18 [History] Levothyroxine Sodium [Synthroid] 150 mcg PO DAILY 05/08/19 [History] Cholecalciferol (Vitamin D3) [Vitamin D3 (5000 Iu)] 125 mcg PO DAILY 12/29/20 [History] PARoxetine [Paxil] 20 mg PO DAILY 12/29/20 [History] Clopidogrel [Plavix] 75 mg PO DAILY #90 tab 06/05/21 [Rx] Spironolactone 25 mg PO DAILY #90 tablet 06/05/21 [Rx] L.acidoph,Paracasei, B.lactis [Probiotic] 1 each PO DAILY 08/05/22 [History] Follow up Appointment(s)/Referral(s): Antonio Nolen MD [STAFF PHYSICIAN] - As Needed (Follow Dr. Naik 1-2 weeks) Activity/Diet/Wound Care/Special Instructions: Post EP study - Ablation instructions 1. Keep access sites dry for 2 days. 2. No heavy lifting or straining for 2 days. 3. Avoid bending the hips repeatedly for 2 days. 4. You may go up and down stairs slowly Call if the following is noted 1. Bleeding, increasing swelling or pain at the access sites. 2. Increasing chest discomfort, especially upon taking a deep breath. 3. Increasing shortness of breath, at rest or with exertion. 4. Undue cough / phlegm 5. Difficulty or pain while swallowing. 6. Pain or change in color in the extremities. 7. Fever, chills, rigors. 8. Increasing headache or neurologic symptoms. 9. Dizziness, fainting, palpitations Discharge Disposition: HOME SELF-CARE
[2022-08-18 08:56] LABS: HCT 38.2 % (37.2-46.3); HGB 12.3 g/dL (12.0-15.0); MCH 30.5 pg (27.0-32.0); MCHC 32.2 g/dL (32.0-37.0); MCV 94.8 fL (80.0-97.0); Mean Platelet Volume 10.3 fL (9.5-12.2); NRBC Per 100 WBC 0 /100 WBCS (0.0-0.0); Platelet Count 297 X 10*3/uL (140-440); RBC 4.03 X 10*6/uL (4.10-5.20); RDW 11.9 % (11.5-14.5); WBC 11.53 X 10*3/uL (4.50-10.00)
[2022-08-18] MEDS ORDERED: EZETIMIBE 10 MG TAB PO SCH (09:00)
[2022-08-18] MEDS ORDERED: RIVAROXABAN 20 MG TAB PO SCH (09:00)
[2022-08-18] MEDS ORDERED: CLOPIDOGREL 75 MG TAB PO SCH (09:00)
[2022-08-18] MEDS ORDERED: SPIRONOLACTONE 25 MG TAB PO SCH (09:00)
[2022-08-18] MEDS ORDERED: PARoxetine 20 MG TAB PO SCH (09:00)
[2022-08-18] MEDS ORDERED: COLCHICINE 0.6 MG EACH PO ONE (09:00)
[2022-08-18] MEDS ORDERED: atenoloL 25 MG TAB PO SCH (09:00)
[2022-08-18] MEDS ORDERED: SODIUM CHLORIDE 0.9% 500 ML 500 ML IV ONE (10:28)
[2022-08-18 16:12] VITALS: BP 103/57; PULSE 80; RESP 18; TEMP 97.9
== END 2022-08-18 16:28 | disposition home or self-care (01) ==
LOC: CATHEP 09:47 → 6NMEDSUR 16:50 → CATHEP 08-18 16:28
PROVIDERS: ATTEND Internal Medicine Clinical Cardiac Electrophysiology
DX: I48.19 Other persistent atrial fibrillation (principal); R07.89 Other chest pain; I11.0 Hypertensive heart disease with heart failure; I50.9 Heart failure, unspecified; E78.5 Hyperlipidemia, unspecified; E11.9 Type 2 diabetes mellitus without complications; Z82.49 Family history of ischemic heart disease and other diseases of the circulatory system; Z79.01 Long term (current) use of anticoagulants; Z79.02 Long term (current) use of antithrombotics/antiplatelets; Z79.890 Hormone replacement therapy; Z79.899 Other long term (current) drug therapy; Z88.5 Allergy status to narcotic agent; Z88.0 Allergy status to penicillin; Z88.2 Allergy status to sulfonamides; Z88.8 Allergy status to other drugs, medicaments and biological substances; Z91.048 Other nonmedicinal substance allergy status; I25.10 Atherosclerotic heart disease of native coronary artery without angina pectoris; M79.7 Fibromyalgia; K21.9 Gastro-esophageal reflux disease without esophagitis; M19.90 Unspecified osteoarthritis, unspecified site; Z85.6 Personal history of leukemia; K58.9 Irritable bowel syndrome, unspecified; Z86.16 Personal history of COVID-19; Z86.69 Personal history of other diseases of the nervous system and sense organs; K44.9 Diaphragmatic hernia without obstruction or gangrene; Z90.49 Acquired absence of other specified parts of digestive tract; Z95.5 Presence of coronary angioplasty implant and graft; Z96.643 Presence of artificial hip joint, bilateral; Z96.653 Presence of artificial knee joint, bilateral; Z98.1 Arthrodesis status; Z98.890 Other specified postprocedural states; Z80.9 Family history of malignant neoplasm, unspecified
CPT/HCPCS: 92960; 93656; 93657; 84443; 85027; C1759; C1894; C1769 ×4; C1760; C1730 ×2; C1893; C1733; C1766; C1732; J2930; J2001; J1644 ×2; Q9967

== ENCOUNTER 2023-05-26 06:13 | Day surgery (SDC) | payer MEDICARE ==
[2023-05-21 11:08] VITALS: BMI 29.2
[2023-05-26] MEDS ORDERED: LIDOCAINE 1% (10MG/ML) FOR IV START INTRADERMA PRN (06:49)
[2023-05-26] MEDS ORDERED: LACTATED RINGERS 1,000 ML IV SCH (06:49)
[2023-05-26] MEDS ORDERED: LIDOCAINE 2% INJ 20 MG/ML (2 ML VIAL) ONE (07:17)
[2023-05-26] MEDS ORDERED: PROPOFOL 10 MG/ML 20 ML VIAL IV ONE (07:17)
[2023-05-26] MEDS ORDERED: BENZOCAINE SPRAY 1 CAN TOPICAL ONE (07:19)
[2023-05-26 07:20] LABS: Glucose,Whole Blood 125 mg/dL (70-110)
[2023-05-26 07:39] VITALS: TEMP 98
[2023-05-26 07:44] LABS: African American GFR (CKD) 90 (>60 ml/min/1.73 sqM); Anion Gap 7 mmol/L; Blood Urea Nitrogen 25 mg/dL (7-17); Calcium 9.2 mg/dL (8.4-10.2); Carbon Dioxide 25 mmol/L (22-30); Chloride 107 mmol/L (98-107); Glucose 124 mg/dL (74-99); Non-African American GFR(CKD) 78 (>60 ml/min/1.73 sqM); Potassium 3.9 mmol/L (3.5-5.1); Sodium 139 mmol/L (137-145)
[2023-05-26] MEDS ORDERED: SODIUM CHLORIDE 0.9% 1,000 ML IV SCH (07:45)
--- NOTE | 2023-05-26 07:45 | P.PCN ---
Date of Procedure: 05/26/23 Description of Procedure: Indication: Atrial fibrillation Procedure Description: After explaining the procedure to the patient, it's risk and complications, blood pressure, heart rate and O2 saturation were monitored. The throat was sprayed with Cetacaine. Patient received sedation per anesthesia department. The probe was introduced into the esophagus without difficulty. Images were obtained. Following that, the probe was removed. There was no immediate complication. Findings: Left atrial size is dilated, left atrial appendage is normal. 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 Left ventricular size and systolic function are normal. The mitral valve appears to be normal, tricuspid and pulmonic valves are normal. Descending thoracic aorta is normal. No pericardial effusion was noted. Contrast bubble study revealed no shunting across the intra-atrial septum. Doppler: Pulse wave and color Doppler were obtained, and revealed mild to moderate mitral with moderate tricuspid regurgitation. There was no shunting across the intra- atrial septum. Conclusion: 1. Dilated left atrium with normal appearance of the left atrial appendage 2. Normal ventricle size and systolic function 3. Moderate tricuspid with mild to moderate mitral regurgitation 4. No shunting across the intra-atrial septum 5. No pericardial effusion Cardioversion: After performing RJ in obtaining sedated state synchronized biphasic cardioversion using 200 J was performed with yazdanism of sinus mechanism, there is no immediate complications.
[2023-05-26 08:37] VITALS: BP 109/67; PULSE 63; RESP 18
[2023-05-26] MEDS ORDERED: NON FORMULARY DRUG (Cholecalciferol (Vitamin D3) [Vitamin D3 (5000 Iu)] 125 MCG Capsule) PO SCH (09:00)
[2023-05-26] MEDS ORDERED: CLOPIDOGREL 75 MG TAB PO SCH (09:00)
[2023-05-26] MEDS ORDERED: RIVAROXABAN 20 MG TAB PO SCH (09:00)
[2023-05-26] MEDS ORDERED: NON FORMULARY DRUG (Levothyroxine Sodium [Synthroid] 150 MCG Tablet) PO SCH (09:00)
[2023-05-26] MEDS ORDERED: EZETIMIBE 10 MG TAB PO SCH (09:00)
[2023-05-26] MEDS ORDERED: NON FORMULARY DRUG (Spironolactone [Spironolactone] 50 MG Tablet) PO SCH (09:00)
[2023-05-26] MEDS ORDERED: atenoloL 25 MG TAB PO SCH (09:00)
[2023-05-26] MEDS ORDERED: PARoxetine 20 MG TAB PO SCH (09:00)
== END 2023-05-26 09:05 | disposition home or self-care (01) ==
LOC: OR 06:13
PROVIDERS: ATTEND Internal Medicine Interventional Cardiology
DX: I48.91 Unspecified atrial fibrillation (principal); I34.0 Nonrheumatic mitral (valve) insufficiency; I10 Essential (primary) hypertension; E78.5 Hyperlipidemia, unspecified; E11.9 Type 2 diabetes mellitus without complications; Z79.82 Long term (current) use of aspirin; Z79.01 Long term (current) use of anticoagulants; Z79.899 Other long term (current) drug therapy
CPT/HCPCS: 93312; 93320; 93005; 93325; 92960; 80048; J2704; J2001

== ENCOUNTER → 2023-08-20 | Outpatient (CLI) | payer MEDICARE ==
--- NOTE | 2023-08-23 07:28 | MM ---
Reason for Exam: Screening (asymptomatic). Last mammogram was performed 1 year(s) and 2 month(s) ago. Patient History: Menarche at age 11. First Full-Term at age 17. Hysterectomy at age 29. Postmenopausal. Other cancer, age 67. Estrogen for 30 years from age 29 until age 59. Niece had breast cancer, age 42. Risk Values: Alyssa 5 year model risk: 1.2%. NCI Lifetime model risk: 2.0%. Prior Study Comparison: 01/26/2019 Bilateral Screening Mammogram, [facility]. 11/03/2019 Left Diagnostic Mammogram, [facility]. 06/29/2022 Bilateral MG 3D screening mammo w/cad, [facility]. Tissue Density: The breast tissue is heterogeneously dense. This may lower the sensitivity of mammography. Findings: Analyzed By CAD. There is no suspicious group of microcalcifications or new suspicious mass in either breast. Benign calcifications within both breasts. Overall Assessment: Benign, BI-RAD 2 Management: Screening Mammogram of both breasts in 1 year. A clinical breast exam by your physician is recommended on an annual basis and results should be correlated with mammographic findings. Note on Alyssa scores and lifetime risk: 1. A Alyssa score greater than 3% is considered moderate risk. If this is the case, consider specialist referral to assess eligibility for a risk reducing agent. If overall lifetime risk for the development of breast cancer is 20% or higher, the patient may qualify for future screening with alternating mammogram and breast MRI. Electronically signed and approved by: Redd Ferrari D.O.
== END | disposition home or self-care (01) ==
LOC: RADMAMWWP 12:51
PROVIDERS: ATTEND Family Medicine
DX: Z12.31 Encounter for screening mammogram for malignant neoplasm of breast (principal); Z78.0 Asymptomatic menopausal state; Z80.3 Family history of malignant neoplasm of breast
CPT/HCPCS: 77063; 77067